=== PATIENT | male | born 1935 | race Caucasian/White ===

== ENCOUNTER 2016-12-30 12:20 | Outpatient (CLI) | payer OTHER ==
--- OUTSIDE RECORDS SUMMARY | 2016-12-30 14:29 | XMS | Clinical Summary ---
:1935 Author Organization [facility] Address [address] [place] [address] Phone Care Team Providers Name Role Phone , Primary Care Provider Unavailable Allergies Not on File Current Medications Not on file Active Problems Not on file Social History Tobacco Use Types Packs/Day Years Used Date Never Assessed Sex Assigned at Date Recorded Not on file Last Filed Vital Signs Not on file Plan of Treatment Not on file Results Not on filefrom Last 3 Months
== END 2016-12-30 12:21 | disposition home or self-care (01) ==
LOC: DTY/OP 12:20
PROVIDERS: ATTEND Family Medicine
DX: N18.3 Chronic kidney disease, stage 3 (moderate) (principal)
CPT/HCPCS: 97802

== ENCOUNTER 2017-09-02 13:08 | Outpatient (CLI) | payer MEDICARE, BC ==
--- NOTE | 2017-09-02 14:59 | PET ---
WHOLE BODY PET CT: Reference made to prior chest imaging dated 04/27/17. CLINICAL HISTORY: Abnormal finding on lung imaging, right lower lung. TECHNIQUE: There is appropriate biodistribution of radiotracer subsequent to IV administration of F18-FDG. Scint igraphic imaging along with nondiagnostic attenuation correction noncontrast CT imaging performed fro m the level of the calvarium to the proximal thighs. FINDINGS: There is a moderate size right pleural effusion with adjacent consolidative density of the right lowe r lobe containing air bronchograms. This area of consolidation is not hypermetabolic. There is a hype rmetabolic focus of the left hilum with a SUV of 3.1, suggestive of adenopathy, and the lymph node is not well discerned morphologically on the basis of noncontrast CT imaging. No hypermetabolic mass or adenopathy of the abdomen or pelvis is seen. There is prominent distention of the gallbladder. Correlate clinically. An exophytic cyst emanates fr om the lateral margin of the right kidney. There is diverticulosis of the sigmoid colon with mild inc reased activity of this region. IMPRESSION: Area of mass-like consolidation of the right lower lung zone adjacent moderate sized pleural effusion is present. This does not demonstrate hypermetabolic activity. There is, however, hypermetabolic act ivity, small in size, at the left hilum, which may relate to hypermetabolic adenopathy. Finding is to o small to definitively characterize and not reliably distinguished on the nondiagnostic attenuation correction portion of the CT component. Recommend follow-up CT thorax in 3 months to confirm resoluti on of the pleural and parenchymal findings. At this time, examination utilizing IV contrast, may also reassess the hilar region. POS: DENY
== END 2017-09-02 13:09 | disposition home or self-care (01) ==
LOC: PET 13:08
PROVIDERS: ATTEND Internal Medicine Sleep Medicine
DX: R91.8 Other nonspecific abnormal finding of lung field (principal); J90 Pleural effusion, not elsewhere classified
CPT/HCPCS: 78815; A9552

== ENCOUNTER 2018-04-19 13:09 | Outpatient (CLI) | payer MEDICARE, BC ==
--- NOTE | 2018-04-19 14:45 | RAD ---
TWO VIEWS CHEST: COMPARISON: 03/22/2018. INDICATION: Dyspnea. FINDINGS: There is complex morphology of pleural fluid projecting at the inferolateral left hemithorax, grossly stable. Right pleural effusion is again seen. Alveolar opacities of the lower lung zones are redem onstrated stable to slightly progressed. There is enlargement of the cardiac silhouette and pulmonar y vasculature. IMPRESSION: 1. Persistent complex pleural fluid collection at the inferior and lateral left hemithorax. 2. Redemonstration of small volume right pleural fluid. 3. Persistent bilateral lower lung zone opacities, stable to slightly progressed which could relate to edema and/or pneumonia. Recommended continued followup. POS: [facility]
== END 2018-04-19 13:10 | disposition home or self-care (01) ==
LOC: RAD 13:09
PROVIDERS: ATTEND Internal Medicine Critical Care Medicine
DX: R06.00 Dyspnea, unspecified (principal); R91.8 Other nonspecific abnormal finding of lung field
CPT/HCPCS: 71046; 80048

== ENCOUNTER 2018-05-07 08:22 | Inpatient (IN) | payer MEDICARE, BC ==
[2018-05-07] MEDS ORDERED: Magnesium 2 GM/50 ML BAG (IN WATER) ONE (08:35)
[2018-05-07 09:14] LABS: Actual Bicarbonate (HCO3a) 20.3 mEq/L (22-28); Analyzer IN Cardio ER; Base Excess (BEa) -4.7 mEq/L (-2.0 to +3.0); CO2 Tension 37.4 mmHg (35.0-45.0); Calcium, Ionized 1.14 mmol/L (1.12-1.30); Carboxyhemoglobin (COHb) 0.1 gm% (0.0-3.0); Hemoglobin (Hb) 10.7 g/dL (14.0-18.0); O2 Tension (PaO2) 118.2 mmHg (> 60.0); Potassium - ABG Lab 4.24 mmol/L (3.70-5.30); pH, Arterial 7.35 (7.35-7.45)
[2018-05-07 09:17] LABS: Puncture Site LR
[2018-05-07] MEDS ORDERED: Albuterol Sulfate 2.5 mg/0.5 ml Neb ONE ×2 (09:19)
[2018-05-07 09:34] LABS: ALT (SGPT) 131 U/L (8-55); AST (SGOT) 25 U/L (5-34); Albumin 3.5 g/dL (3.4-4.8); Alkaline Phosphatase 110 U/L (40-150); Anion Gap 18 mmol/L (10-20); BUN (Urea Nitrogen) 105 mg/dL (8.4-25.7); CK (CPK) 38 U/L (30-200); Calc. Creatinine Clearance 0 mL/min (70-130); Calcium 8.5 mg/dL (7.8-10.44); Carbon Dioxide 20 mmol/L (23-31); Chloride 111 mmol/L (98-107); Estimated GFR-MDRD 27; Globulin 2.6 g/dL (2.4-3.5); Glucose 162 mg/dL (83-110); Lipase 183 U/L (8-78); Potassium 4.6 mmol/L (3.5-5.1); Protein, Total 6.1 g/dL (5.8-8.1); Sodium 144 mmol/L (136-145)
--- NOTE | 2018-05-07 09:40 | RAD ---
RADIOGRAPH CHEST 1 VIEW: Date: 05/07/2018. Time: 7:47 a.m. HISTORY: An 82-year-old male with dyspnea. COMPARISON: 04/19/2018. FINDINGS: Hyperlucency of bilateral upper lobes, with hyperinflation, consistent with COPD. Left subclavian du al-lead pacemaker. The loculated left pleural effusion has decreased in volume. Blunting of the rig ht lateral costophrenic angle consistent with small right pleural effusion, is unchanged. Hazy infil trates at the right lower lung zone, and at the left mid and lower lung zones. The ones in the left mid lung zone appear to be new. No interval change in the rest of the infiltrates. No pneumothorax. IMPRESSION: 1. Interval decrease in size of loculated left pleural effusion. 2. Small right pleural effusion unchanged. 3. Emphysema. 4. Bibasilar infiltrates are unchanged. Uncertain whether they represent chronic pulmonary changes, pulmonary edema, or recurrent pneumonia. 5. New finding of similar such mild infiltrates in the left mid lung zone which could be pulmonary e candido or pneumonia. REYES [] POS: DENY
[2018-05-07 09:46] LABS: Digoxin 0.72 ng/mL (0.8-2.0)
[2018-05-07 09:55] LABS: CKMB 4.2 ng/mL (0-6.6)
[2018-05-07 09:57] LABS: Anisocytosis MODERATE=16-30 cells (100X) (0-5/hpf); Band 4 % (5-11); Eosinophils 1 % (0-10); Hypochromia MODERATE=16-30 cells (100X) (0-5/hpf); Large Platelets SLIGHT; MDiff Complete? YES; Mean Corpuscular HGB CONC 29.6 g/dL (32.0-36.0); Mean Corpuscular Volume 94.6 fL (78.0-98.0); Mean Platelet Volume 10.2 fL (7.4-10.4); Metamyelocyte 2 % (0-0); Monocytes 9 % (0-10); Myelocyte 1 % (0-0); Neutrophil 83 % (42-75); Platelet Count 223 thou/uL (130-400); Platelet Morphology Comment Appears Adequate; Polychromasia SLIGHT = 2-3 cells (100X) (0-2/hpf); RBC Distribution Width 14.2 % (11.5-14.5); Red Blood Cell (RBC) Count 3.56 mill/uL (4.70-6.10); White Blood Cell (WBC) Count 23.9 thou/uL (4.8-10.8)
[2018-05-07] MEDS ORDERED: Sodium Chloride 0.9% 1,000 ML IV SCH (10:00)
[2018-05-07] MEDS ORDERED: Ondansetron ODT 4 MG TAB SL PRN (10:00)
[2018-05-07] MEDS ORDERED: Ondansetron PF 4 MG/2 ML Vial IVP PRN (10:00)
[2018-05-07 12:18] LABS: Bilirubin Negative (Negative); Blood, Urine Small (Negative); Clarity CLOUDY (Clear); Glucose, Urine (Dipstick) 100 mg/dL (Negative); Leukocyte Trace (Negative); Nitrite Negative (Negative); Protein, Urine (Dipstick) 100 mg/dL (Neg-Trace); Specific Gravity, Urine 1.015 (1.002-1.036); Urobilinogen 0.2 mg/dL (0.2-1.0)
[2018-05-07 12:21] LABS: Bacteria/HPF None Seen HPF (None Seen); Hyaline Casts/LPF 4-6 HYALINE CAST LPF (0-3 Hyaline); Pathc Cast-AUWi Flag 1.22 (0-2.49); RBC/HPF 0-3 HPF (0-3); Squamous Epithelial 0-3 HPF (0-3)
[2018-05-07 12:41] LABS: Troponin I 0.115 ng/mL (< 0.028)
[2018-05-07] MEDS ORDERED: Guaifenesin DM 100-10/5 ML UDCUP PO PRN (14:23)
[2018-05-07] MEDS ORDERED: Senokot S 8.6-50 MG TAB PO PRN (14:23)
[2018-05-07] MEDS: Albumin 25% 25 GM/100 ML BOT IVPB SCH ×2 (14:52→20:32)
[2018-05-07] MEDS: Sodium Chloride 0.9% 1,000 ML IV SCH (14:55)
--- NOTE | 2018-05-07 15:37 | HP ---
REASON FOR ADMISSION: Acute respiratory failure with hypoxia. HISTORY OF PRESENTING ILLNESS: The patient had gone see on the . He was put on home oxygen. The SPO2 was in the 70% range. He was told that if his shortness of breath persisted after 2 days, he needs to go to the emergency room. They promptly went to emergency room on the as his shortness of breath did not get better. He was hospitalized at [facility]. He was intubated and also had a bronchoscopy done there. This revealed alveolar hemorrhage with inflammatory component. He was placed on high-dose steroids. Prior to this, the patient was on Eliquis and Multaq and they thought it is due to Multaq. With steroids, he had complete clearing of his chest x-ray per his family. The patient was on Eliquis and Multaq for atrial fibrillation. He had seen Dr. Syed there. He was on the ventilator for nearly 8 days and was successfully extubated. He in fact got discharged yesterday to go to [facility]. This morning, the patient developed low saturations, low blood pressure, and tachycardia. He developed worsening shortness of breath and was transferred here to the emergency room. Was briefly on BIPAP on arrival in ER. Currently, he has no complaints of palpitations, PND, or orthopnea. No complaints of chest pain, cough, or expectoration. He is currently wanting to pass urine, but he is unable to. BladderScan is only 90 mL. The patient is not fully oriented, but responds well to most questions. PAST MEDICAL AND SURGICAL HISTORY: H/o prior thoracentesis with removal of 1 gallon fluid from right pleura 4 yrs back. History of atrial fibrillation, recent hospitalization with respiratory failure, intubated/extubated and discharged yesterday to [facility] from [facility]; benign prostatic hypertrophy, normal ejection fraction per Dr. Looney, who was following the patient there; acute kidney injury due to recent diuresis. Likely diastolic dysfunction. Last stress test was 2 months back, which was a nuclear stress test and was normal as far as the knows. Hypothyroidism, sick sinus syndrome with [employer] pacemaker, tonsillectomy, pilonidal cyst surgery, back surgery. CURRENT MEDICATIONS: The patient is on; 1. Aspirin 81 mg p.o. daily. 2. Calcitriol 0.25 mcg p.o. daily. 3. Digoxin 0.125 mg p.o. daily. 4. Cardizem CD 360 mg p.o. daily. 5. Pepcid 20 mg p.o. daily. 6. Levothyroxine 200 mcg p.o. daily. 7. Flomax 0.4 mg p.o. daily. 8. Terazosin 1 mg p.o. daily. ALLERGIES: TO CLINDAMYCIN, EZETIMIBE, LOSARTAN, PENICILLIN, SIMVASTATIN, AND SULFA. PERSONAL HISTORY: Does not abuse alcohol or drugs. No history of smoking. FAMILY HISTORY: Mother at the age of 75 years. Father at the age of 84 years. He has had history of colon cancer and prostate cancer. CODE STATUS: Full. POWER OF DIRECTOR INTERNATIONAL: His . REVIEW OF SYSTEMS: CONSTITUTIONAL: Negative for weight loss or gain, ability to conduct usual activities. SKIN: Negative for rash, itching. EYES: Negative for double vision, pain. ENT/MOUTH: Negative for nose bleeding, neck stiffness, pain, tenderness. CARDIOVASCULAR: Negative for palpitations, dyspnea on exertion, orthopnea. RESPIRATORY: Negative for shortness of breath, wheezing, cough, hemoptysis, fever or night sweats. GASTROINTESTINAL: Negative for poor appetite, abdominal pain, heartburn, nausea , vomiting, constipation, or diarrhea. GENITOURINARY: Negative for urgency, frequency, dysuria, nocturia. MUSCULOSKELETAL: Negative for pain, swelling. NEUROLOGIC/PSYCHIATRIC: Negative for anxiety, depression. ALLERGY/IMMUNOLOGIC: Negative for skin rash, bleeding tendency. PHYSICAL EXAMINATION: GENERAL: The patient is a 82-year-old male, who is currently not in any acute distress. VITAL SIGNS: Blood pressure 116/66; pulse 110 per minute; respiratory rate is 24 per minute; temperature is 97.9 degrees Fahrenheit; saturating 99%, on BiPAP on arrival here, but currently 100% on 2 L nasal cannula. NECK: Supple. No elevated JVD. HEENT: Eyes; extraocular muscles intact. Pupils reacting to light. Oral cavity, mucous membranes are dry. No exudates or congestion. CARDIOVASCULAR: S1 and S2 heard. Irregular rhythm. RESPIRATORY: Air entry 1+ bilateral. Scattered rhonchi plus no rales or wheezes. ABDOMEN: Soft. Bowel sounds heard. No tenderness, rigidity, or guarding. EXTREMITIES: No peripheral edema or calf tenderness. VASCULAR: Peripheral pulses 1+ bilateral. No ischemic ulcerations or gangrene. CENTRAL NERVOUS SYSTEM: No gross focal deficits noted. The patient is a bit confused, but otherwise mostly oriented and responds well to verbal questions. PSYCHIATRIC: No obvious hallucinations or delusions at present. LABORATORY DATA: EKG done shows atrial fibrillation at 98 beats per minute. There is Q-waves seen in V1, V2, V3, T inversions in V4, V5, V6. White count of 23, H and H 10 and 33, platelet count 223, with 83% neutrophils. Blood gas done shows a pH 7.35, pCO2 37, pO2 118, serum bicarb 20, BUN 105, creatinine 2.3, serum glucose 162. Troponin I indeterminate, peaking up to 0.14. BNP 103. Lipase 183. Albumin 3.5. Digoxin level 0.72. Influenza A and B antigens are negative. Chest x-ray shows signs of emphysema, mild infiltrates in the left midlung zone, could be pulmonary edema or pneumonia. CLINICAL IMPRESSION AND PLAN: The patient will be admitted to [facility] for acute respiratory failure with hypoxia on arrival, currently off BiPAP. He has had extensive workup done at [facility] when he was hospitalized on the and got discharged only yesterday. He has also seen Dr. Vicente on the and was placed on oxygen prior to any of this happening. The patient has had bronchoscopy done and has been ruled out for vasculitis. His ejection fraction was apparently normal per Dr. Looney. We will obtain all the records from [facility]. Prior EKG done on 03 May 2018 shows a QRS duration of 134 milliseconds with a corrected QT interval of 470 milliseconds showing nonspecific intraventricular block. Echo with 2D Doppler that was done on 04/22/2018 shows ejection fraction of 60% to 65%. There is mild concentric LVH. Paradoxical septal motion consistent with RV pacemaker. Left atrial size was normal. He has had a sonogram done on 04/21/2018, which showed normal appearing left kidney. No evidence of hydronephrosis. Right renal cysts were seen. The patient will be placed on albumin infusions and will continue his Lasix. He appears clinically dry at present. Likely, the patient got over-diuresed. Per Dr. Looney, his BUN and creatinine were the same when he left the [facility] yesterday. We will obtain consultation with Dr. Giles. We will obtain [employer] Al[employer]o pacemaker printout with suspected nonsustained episodes of ventricular tachycardia on IMCU. The rate was not more than 130s to 140s. He will be gently hydrated with normal saline at 80 mL per hour as well. The patient will be on Flomax and terazosin. No antibiotics will be given for now. His elevated white count is due to margination. Blood and urine cultures have been obtained in the ER. We will follow up on that. Job ID: [id number] MTDD
[2018-05-07] MEDS: Albuterol Sulfate 1.25 MG/3 ML NEB NEB SCH ×2 (15:44→22:05)
--- NOTE | 2018-05-07 19:38 | CON ---
DATE OF CONSULTATION: HISTORY OF PRESENT ILLNESS: Uriah Degroot is an 82-year-old gentleman who apparently was brought to the ER with shortness of breath. I am told he was recently discharged from the [facility]. He has a right subclavian access stick there. Apparently, he developed some difficulty breathing, and apparently, family decided to bring him to [facility]. I am trying to review some of his information from the [facility]. He carries a diagnosis of CHF, but his ejection fraction was measured at 60% to 65%. He apparently has evidence of renal failure. In the ER, his sats were in the 70s, blood pressure 100/52. PAST MEDICAL HISTORY: Pertinent for CHF, though as noted the echo was normal; chronic renal failure; coronary artery disease; atrial fibrillation; sick sinus; hypothyroidism; reflux; BPH. CURRENT MEDICATIONS: List of medicine brought in from home included, 1. Terazosin 1 mg. 2. Flomax 0.4. 3. Pepcid 20. 4. Aspirin. 5. Cardizem 360. 6. Synthroid 200. ALLERGIES: CLINDAMYCIN, LOSARTAN, PENICILLIN, SULFA. SOCIAL HISTORY: Tobacco, otherwise unable to obtain at this time, but appears he has never smoked. His follow up with Dr. Vicente, actuarial associate and Dr. Looney, his email operations manager. PHYSICAL EXAMINATION: GENERAL: He is awake. Nurses say he ate all his supper. VITAL SIGNS: Blood pressure 130/62, sats 99, respiratory rate 18, pulse 80. CHEST: Decreased breath sounds. No wheezing. CARDIAC: Normal S1 and S2. No gallops. ABDOMEN: No masses. LABORATORY DATA: White count 98637, H and H of 10 and 30, and platelet count is 223, PO2 is 180, pCO2 . He is on BiPAP. BUN and creatinine 100 and 2.3, prerenal. BNP is only 103. IMPRESSION: Prerenal azotemia, chronic renal failure, chronic obstructive pulmonary disease, probably diastolic dysfunction, no evidence of any congestive heart failure at this time, bilateral bronchopneumonia, leukocytosis. I added broad-spectrum antibiotics, neb treatments, steroids to his present regime. We will follow and notify Dr. Vicente, who sees him apparently in the office. 70 minutes time, 50% direct patient care. Job ID: [id number]
[2018-05-07] MEDS ORDERED: Cefepime 1 GM in Sodium Chloride 0.9% 100 ML IVPB SCH (20:00)
[2018-05-07] MEDS: Famotidine 20 MG TAB PO SCH (20:32)
[2018-05-07] MEDS: methylPREDNISolone Sod Succ 40 MG VIAL IVP SCH (20:33)
--- NOTE | 2018-05-07 20:52 | CON ---
DATE OF CONSULTATION: HISTORY OF PRESENT ILLNESS: Mr. Degroot is an 82-year-old white male, who was admitted for shortness of breath. He was found to be hypoxemic. He was admitted for further management. Oxygenation is much improved with 2 L of O2. In addition, he has been empirically treated with albumin and Lasix. The issue with this patient is that his chest x-ray suggested possible pneumonia and/or CHF. Please note this patient was recently admitted at [facility] for acute respiratory failure. He was found to have noncardiogenic pulmonary edema. He underwent a comprehensive workup, which included bronchoscopy. He was also ruled out for any vasculitis. We are now being consulted for his chronic renal failure. His BUN and creatinine are about baseline when compared to his discharge from the [facility]. REVIEW OF SYSTEMS: Positive for shortness of breath. No nausea. No vomiting. No chest pain. No syncopal episode. Positive for cough. No fever or chills. No diarrhea. No constipation. No abdominal pain. No headache. No gross hematuria. No dysuria. No urinary frequency. MEDICATIONS: 1. Albumin 25 g IV q.6. 2. Ecotrin 81 mg daily. 3. Calcitriol 0.25 mcg daily. 4. Cefepime 1 g IV daily. 5. Digoxin 0.125 mg daily. 6. Cardizem CD 360 mg once a day. 7. Lovenox 30 mg daily. 8. Pepcid 20 mg p.o. b.i.d. 9. Synthroid 200 mcg daily. 10. Solu-Medrol 40 mg IV b.i.d. 11. Normal saline 80 mL/hour. PAST MEDICAL HISTORY: 1. 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 2. Recently status post acute respiratory failure. 3. Hypertension. 4. Atrial fibrillation. 5. Secondary hyperparathyroidism. 6. BPH. 7. Hypothyroidism. PAST SURGICAL HISTORY: Status post thoracentesis, status post intubation with subsequent extubation. ALLERGIES: CLINDAMYCIN, EZETIMIBE, LOSARTAN, PENICILLIN, SIMVASTATIN, AND SULFA. TRAUMA: None. IMMUNIZATION: Up-to-date. HOSPITALIZATIONS: Please see past medical history. SOCIAL HISTORY: The patient is , lives in the [facility] area, several children. 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 Education, college graduate. Currently, no smoking or alcohol intake. FAMILY HISTORY: No family history of ESRD. PHYSICAL EXAMINATION: VITAL SIGNS: Blood pressure is 131/62, heart rate 92, respiratory rate 22, pulse ox 100% on 2 L nasal cannula, and temperature 98.1. GENERAL: Awake, supine, comfortable, not in overt distress. SKIN: Adequate turgor. HEENT: Pinkish conjunctivae. Anicteric sclerae. NECK: No neck mass. No carotid bruits. No JVD. CHEST: No deformities. LUNGS: Decreased breath sounds. HEART: Normal sinus rhythm. No murmurs. No gallops. No rubs. ABDOMEN: Globular, soft, and nontender. No masses. EXTREMITIES: No edema. No deformities. LABORATORY DATA: Laboratories of May 07, 2018, urinalysis showed protein of 100, rbc 0 to 3, wbc 11 to 20, no pigmented granular casts. Sodium 144, potassium 4.6, chloride 111, carbon dioxide 20, BUN 105, creatinine 2.3, glucose 162, calcium 8.5. AST 25, ALT 131. Troponin I 0.115. BNP is 103. Chest x-ray of May 07, 2018, shows interval increase in the loculated left pleural effusion, small right pleural effusion finding of emphysema, bibasilar infiltrates which may represent edema or recurrent pneumonia. ASSESSMENT AND PLAN: 1. Shortness of breath/hypoxemia. Empiric treatment of a presumed pneumonia. The patient most likely has no overt congestive heart failure in a background of low BNP and x-ray that is more suggestive of chronic lung disease. 2. Acute kidney injury/chronic renal failure - currently, we are trying to gently diurese this patient due to the ? Of pulmonary edema. However, review of the history suggests this patient may most likely be more volume depleted. He has been started on salt-poor albumin 25 g IV q.6. He was initially empirically treated with some Lasix, which was given as one time dose. Please note, the patient was discharged from the [facility] on Lasix. There is no indication for any dialytic intervention. Agree with optimizing his hemodynamics. Agree with albumin infusion and gentle volume repletion with crystalloids. Case discussed with Dr. Giles. Job ID: [id number]
[2018-05-08] MEDS: Albumin 25% 25 GM/100 ML BOT IVPB SCH ×4 (03:23→20:52)
[2018-05-08] MEDS: Sodium Chloride 0.9% 1,000 ML IV SCH ×2 (03:23→15:20)
[2018-05-08] MEDS: Levothyroxine Sodium 100 MCG TAB PO SCH (05:31)
[2018-05-08] MEDS ORDERED: Furosemide 40 MG/4 ML VIAL SLOW IVP SCH (06:00)
[2018-05-08] MEDS ORDERED: Vancomycin HCl 1 GM in Premix Bag 1 BAG IVPB SCH (06:30)
[2018-05-08 06:48] LABS: Anion Gap 16 mmol/L (10-20); BUN (Urea Nitrogen) 89 mg/dL (8.4-25.7); BUN/Creatinine Ratio 46.35; Calc. Creatinine Clearance 36 mL/min (70-130); Calcium 8.6 mg/dL (7.8-10.44); Carbon Dioxide 21 mmol/L (23-31); Chloride 112 mmol/L (98-107); Estimated GFR-MDRD 34; Glucose 145 mg/dL (83-110); Phosphorus 5.4 mg/dL (2.3-4.7); Potassium 5.1 mmol/L (3.5-5.1); Sodium 144 mmol/L (136-145)
[2018-05-08 06:58] LABS: Band 9 % (5-11); MDiff Complete? YES; Mean Corpuscular HGB CONC 30.6 g/dL (32.0-36.0); Mean Corpuscular Hemoglobin 28.5 pg (27.0-31.0); Mean Corpuscular Volume 93.2 fL (78.0-98.0); Mean Platelet Volume 10.5 fL (7.4-10.4); Metamyelocyte 1 % (0-0); Monocytes 1 % (0-10); Neutrophil 89 % (42-75); Platelet Count 175 thou/uL (130-400); Platelet Morphology Comment Appears Adequate; RBC Distribution Width 14.1 % (11.5-14.5); Red Blood Cell (RBC) Count 2.82 mill/uL (4.70-6.10); White Blood Cell (WBC) Count 19.6 thou/uL (4.8-10.8)
[2018-05-08] MEDS ORDERED: Calcitriol 0.25 MCG CAP PO SCH (09:00)
[2018-05-08] MEDS: Vancomycin HCl 1.25 GM in Sodium Chloride 0.9% 250 ML 250 ML IVPB SCH (09:14)
[2018-05-08] MEDS ORDERED: Clopidogrel Bisulfate 75 MG TAB ONE (09:33)
[2018-05-08] MEDS: Terazosin HCl 1 MG CAP PO SCH (10:19)
[2018-05-08] MEDS: Famotidine 20 MG TAB PO SCH ×2 (10:19→20:53)
[2018-05-08] MEDS: Digoxin 0.125 MG TAB PO SCH (10:19)
[2018-05-08] MEDS: Tamsulosin HCl 0.4 MG CAP PO SCH (10:19)
[2018-05-08] MEDS: Aspirin 81 mg Enteric Coated Tablet PO SCH (10:19)
[2018-05-08] MEDS: Calcitriol 0.25 MCG CAP PO SCH (10:20)
[2018-05-08] MEDS: Enoxaparin Sodium 30 MG/0.3 ML SYRINGE SC SCH (10:21)
[2018-05-08] MEDS: methylPREDNISolone Sod Succ 40 MG VIAL IVP SCH ×2 (10:22→20:52)
--- NOTE | 2018-05-08 11:18 | PRG ---
DATE OF SERVICE: 05/08/2018 SERVICE: Renal Medicine. SUBJECTIVE: Mr. Degroot is an 82-year-old white male, who was admitted for shortness of breath. Review of his pulmonary status suggests he may have underlying pneumonia. IV antibiotics have been continued. He was also found to be still in his acute kidney injury/chronic renal failure. Empiric albumin infusion was given with improvement of the renal function. This morning, he is feeling better. He voices no new complaints. He states his shortness of breath is improved. OBJECTIVE: VITAL SIGNS: Blood pressure 157/72, heart rate 82, respiratory rate 21, and pulse oximetry 100%. GENERAL: Awake, alert, and comfortable. SKIN: Adequate turgor. HEENT: Slightly pale conjunctivae. Anicteric sclerae. NECK: No neck mass. No carotid bruits. No JVD. CHEST: No deformities. LUNGS: Clear. Decreased breath sounds. HEART: Normal sinus rhythm. No murmur. No gallops. No rubs. ABDOMEN: Globular, soft, and nontender. No masses. EXTREMITIES: No edema. No deformities. MEDICATIONS: Medications of May 08, 2018, was reviewed. LABORATORY DATA: Laboratories of May 08, 2018; white count 19.6 and hemoglobin 8. Sodium 144, potassium 5.1, chloride 112, carbon dioxide 21, BUN 89, creatinine 1.92, glucose 145, phosphorus 5.4, and albumin 4.0. ASSESSMENT AND PLAN: 1. Acute kidney injury/chronic renal failure, superimposed prerenal azotemia, slowly improving renal function with IV hydration with crystalloids and colloids. Continue current management. Continue to hold off any diuretics. 2. Shortness of breath - multifactorial etiology. Underlying pneumonia is a possibility. The patient continues to receive his IV antibiotics. 3. He is also on steroid supplementation. 4. Anemia. Continue to observe. Plan is to recheck basic metabolic panel and CBC in the a.m. Job ID: [id number]
--- NOTE | 2018-05-08 11:56 | PRG ---
DATE OF SERVICE: 05/08/2018 SUBJECTIVE: This morning he said, he is doing better, less short of breath. OBJECTIVE: VITAL SIGNS: His sats are 97% on 2 L, pulse 80, blood pressure 146/74, respirations 18. CHEST: Decreased breath sounds. No wheezing. Minimal crackles. CARDIAC: Normal S1 and S2. No gallops. ABDOMEN: Soft. LABORATORY DATA: White count 19,000 with a slight left shift. H and H 26, platelet count is normal. Creatinine is 1.2, BUN 89. Urine is normal. Blood culture, coagulase negative, Staph as a contamination. Abnormal x-ray, respiratory failure, bilateral pneumonia, azotemia, normal EF. PLAN: Continue antibiotics, steroids. I would deescalate antibiotics. All cultures are negative. Pulmonary will follow. Job ID: [id number]
[2018-05-08] MEDS: Albuterol Sulfate 1.25 MG/3 ML NEB NEB SCH ×3 (12:30→22:33)
--- NOTE | 2018-05-08 15:27 | PDOC.PN ---
- Subjective Encounter Start Date: 05/08/18 Encounter Start Time: 13:00 Subjective: no sob or palp -: feels better, not fully oriented but follows verbal stimuli - Objective Resuscitation Status - Order Detail: 05/07/18 14:14 Resuscitation Status Routine Resuscitation Status: FULL: Full Resuscitation MAR Reviewed: Yes Vital Signs & Weight: Vital Signs (12 hours) Temp Pulse Pulse Pulse Resp BP BP 05/08/18 12:29 94 20 05/08/18 12:00 98.3 F 05/08/18 10:19 82 05/08/18 10:09 92 92 161/67 H 157/77 H 05/08/18 08:00 05/08/18 07:15 97.6 F 05/08/18 04:08 98.0 F Pulse Ox Pulse Ox Pulse Ox 05/08/18 12:29 97 05/08/18 12:00 05/08/18 10:19 05/08/18 10:09 100 99 05/08/18 08:00 97 05/08/18 07:15 05/08/18 04:08 Weight Weight 184 lb 3 oz Most Recent Monitor Data Heart Rate from ECG 97 NIBP 161/73 NIBP BP-Mean 102 Respiration from ECG 28 SpO2 94 I&O: 05/07/18 05/08/18 05/09/18 05:59 06:59 06:59 Intake Total Output Total Balance Result Diagrams: 05/08/18 05:27 05/08/18 05:27 Phys Exam - Physical Examination HEENT: PERRLA, moist MMs Neck: no JVD, supple Respiratory: no wheezing, no rales rhonchi+ Cardiovascular: no significant murmur, irregular Gastrointestinal: soft, non-tender, positive bowel sounds Musculoskeletal: pulses present, edema present Neurological: non-focal, moves all 4 limbs Dx/Plan (1) CHF (congestive heart failure), NYHA class III Code(s): I50.9 - HEART FAILURE, UNSPECIFIED Status: Chronic Qualifiers: Congestive heart failure type: diastolic Congestive heart failure chronicity: chronic Qualified Code(s): I50.32 - Chronic diastolic (congestive ) heart failure (2) PNA (pneumonia) Code(s): J18.9 - PNEUMONIA, UNSPECIFIED ORGANISM Status: Acute Qualifiers: Pneumonia type: due to unspecified organism Laterality: bilateral (3) Acute respiratory failure with hypoxia Code(s): J96.01 - ACUTE RESPIRATORY FAILURE WITH HYPOXIA Status: Resolved (4) Afib Code(s): I48.91 - UNSPECIFIED ATRIAL FIBRILLATION Status: Chronic Qualifiers: Atrial fibrillation type: paroxysmal Qualified Code(s): I48.0 - Paroxysmal atrial fibrillation (5) ARACELI (acute kidney injury) Code(s): N17.9 - ACUTE KIDNEY FAILURE, UNSPECIFIED Status: Acute (6) Physical deconditioning Code(s): R53.81 - OTHER MALAISE Status: Acute (7) HTN (hypertension) Code(s): I10 - ESSENTIAL (PRIMARY) HYPERTENSION Status: Chronic Qualifiers: Hypertension type: essential hypertension Qualified Code(s): I10 - Essential (primary) hypertension (8) Pacemaker Code(s): Z95.0 - PRESENCE OF CARDIAC PACEMAKER Status: Chronic Comment: due to sss (9) Hypothyroidism Code(s): E03.9 - HYPOTHYROIDISM, UNSPECIFIED Status: Chronic Qualifiers: Hypothyroidism type: unspecified Qualified Code(s): E03.9 - Hypothyroidism , unspecified - Plan is on iv fluids, alb infusions -: cefepime, vanc, nebs -: on asp, digoxin, cardizem cd, flomax, hytrin -: PT to mobilize as tolerated -: dc plan will be back to [place] when stable * . Review of Systems - Medications/Allergies Allergies/Adverse Reactions: Allergies Allergy/AdvReac Type Severity Reaction Status Date / Time clindamycin Allergy Verified 05/07/18 13:37 ezetimibe Allergy Verified 05/07/18 13:37 [From Vytorin 10-10] losartan Allergy Verified 05/07/18 13:37 Penicillins Allergy Verified 05/07/18 13:37 simvastatin Allergy Verified 05/07/18 13:37 [From Vytorin 10-10] Sulfa (Sulfonamide Allergy Verified 05/07/18 13:37 Antibiotics) Medications: Current Medications Acetaminophen (Tylenol) 650 mg PO Q4H PRN PRN Reason: Headache/Fever/Mild Pain (1-3) Albumin Human (Albumin 25%) 25 gm IVPB Q6H ARMANI Stop: 05/08/18 20:31 Last Admin: 05/08/18 15:12 Dose: 25 gm Albuterol Sulfate (Albuterol Sulfate) 1.25 mg NEB [id number] ARMANI Last Admin: 05/08/18 12:30 Dose: Not Given Albuterol/Ipratropium (Duoneb) 3 ml NEB [id number] [facility] Last Admin: 05/08/18 12:29 Dose: 3 ml Aspirin (Ecotrin) 81 mg PO DAILY [facility] Last Admin: 05/08/18 10:19 Dose: 81 mg Calcitriol (Rocaltrol) 0.25 mcg PO DAILY [facility] Last Admin: 05/08/18 10:20 Dose: 0.25 mcg Digoxin (Lanoxin) 0.125 mg PO DAILY [facility] Last Admin: 05/08/18 10:19 Dose: 0.125 mg Diltiazem HCl (Cardizem Cd) 360 mg PO DAILY [facility] Last Admin: 05/08/18 10:18 Dose: 360 mg Enoxaparin Sodium (Lovenox) 30 mg SC 0900 [facility] Last Admin: 05/08/18 10:21 Dose: 30 mg Famotidine (Pepcid) 20 mg PO BID [facility] Last Admin: 05/08/18 10:19 Dose: 20 mg Guaifenesin/Dextromethorphan (Robitussin Dm) 15 ml PO Q4H PRN PRN Reason: Cough Sodium Chloride (Normal Saline 0.9%) 1,000 mls @ 80 mls/hr IV .[id number] [facility] Last Admin: 05/08/18 03:23 Dose: 1,000 mls Vancomycin HCl 1.25 gm/ Sodium (Chloride) 250 mls @ 166.667 mls/hr IVPB 0800 [facility] Last Admin: 05/08/18 09:14 Dose: 250 mls Cefepime HCl 1 gm/ Sodium (Chloride) 100 mls @ 200 mls/hr IVPB 2000 [facility] Levothyroxine Sodium (Synthroid) 200 mcg PO 0600 [facility] Last Admin: 05/08/18 05:31 Dose: 200 mcg Methylprednisolone Sodium Succinate (Solu-Medrol) 40 mg IVP BID [facility] Last Admin: 05/08/18 10:22 Dose: 40 mg Miscellaneous Medication (Pharmacy To Dose) 1 each IVPB DAILYPRN PRN PRN Reason: VANC/ABX Senna/Docusate Sodium (Senokot S) 2 tab PO BIDPRN PRN PRN Reason: Constipation Tamsulosin HCl (Flomax) 0.4 mg PO DAILY [facility] Last Admin: 05/08/18 10:19 Dose: 0.4 mg Terazosin HCl (Hytrin) 1 mg PO DAILY [facility] Last Admin: 05/08/18 10:19 Dose: 1 mg
[2018-05-08] MEDS: Cefepime 1 GM in Sodium Chloride 0.9% 100 ML IVPB SCH (20:53)
[2018-05-09] MEDS: Levothyroxine Sodium 100 MCG TAB PO SCH (04:54)
[2018-05-09] MEDS: Sodium Chloride 0.9% 1,000 ML IV SCH ×2 (04:55→17:27)
[2018-05-09 06:52] LABS: #Lymphocytes 0.1 thou/uL (1.20-3.40); #Monocytes 0.4 thou/uL (0.11-0.59); #Neutrophils 12.5 thou/uL (1.40-6.50); %Eosinophils 0.3 % (0.0-10.0); %Lymphocytes 0.9 % (21.0-51.0); %Neutrophils 95.8 % (42.0-75.0); Mean Corpuscular HGB CONC 29.9 g/dL (32.0-36.0); Mean Corpuscular Hemoglobin 28.3 pg (27.0-31.0); Mean Corpuscular Volume 94.6 fL (78.0-98.0); Mean Platelet Volume 9.5 fL (7.4-10.4); Platelet Count 135 thou/uL (130-400); RBC Distribution Width 14.1 % (11.5-14.5); Red Blood Cell (RBC) Count 2.47 mill/uL (4.70-6.10)
[2018-05-09 07:00] LABS: Anion Gap 14 mmol/L (10-20); BUN (Urea Nitrogen) 71 mg/dL (8.4-25.7); Calc. Creatinine Clearance 38 mL/min (70-130); Calcium 8.6 mg/dL (7.8-10.44); Carbon Dioxide 19 mmol/L (23-31); Chloride 117 mmol/L (98-107); Estimated GFR-MDRD 36; Glucose 150 mg/dL (83-110); Sodium 145 mmol/L (136-145)
[2018-05-09 07:58] LABS: Vancomycin, Trough 11.6 ug/mL
[2018-05-09] MEDS: Vancomycin HCl 1.25 GM in Sodium Chloride 0.9% 250 ML 250 ML IVPB SCH (08:29)
--- NOTE | 2018-05-09 08:45 | RAD ---
SINGLE VIEW OF THE CHEST: COMPARISON: 05/07/2018. HISTORY: CHF. FINDINGS: A single view of the chest shows a normal-size cardiomediastinal silhouette. The pacemaker is unchan ged in position. Diffuse mixed alveolar/interstitial opacities are seen. Degenerative changes are s een in the spine. IMPRESSION: Multifocal infiltrates. POS: STEPHEN
[2018-05-09] MEDS: Tamsulosin HCl 0.4 MG CAP PO SCH (09:16)
[2018-05-09] MEDS: Aspirin 81 mg Enteric Coated Tablet PO SCH (09:16)
[2018-05-09] MEDS: Calcitriol 0.25 MCG CAP PO SCH (09:17)
[2018-05-09] MEDS: Famotidine 20 MG TAB PO SCH ×2 (09:17→20:53)
[2018-05-09] MEDS: Digoxin 0.125 MG TAB PO SCH (09:17)
[2018-05-09] MEDS: Terazosin HCl 1 MG CAP PO SCH (09:18)
[2018-05-09] MEDS: methylPREDNISolone Sod Succ 40 MG VIAL IVP SCH (09:18)
[2018-05-09] MEDS: Enoxaparin Sodium 30 MG/0.3 ML SYRINGE SC SCH (09:20)
--- NOTE | 2018-05-09 09:33 | PRG ---
DATE OF SERVICE: 05/09/2018 SUBJECTIVE: Mr. Degroot is an 82-year-old white male, who was admitted for shortness of breath. He was found to be still with persistent pneumonia, currently on IV antibiotics. We were consulted for his acute kidney injury on top of his chronic renal failure. He has received gentle volume repletion with colloids and crystalloids. No other complaints today. OBJECTIVE: VITAL SIGNS: Blood pressure 145/63, heart rate 81, respiratory rate is 12, and pulse ox 96%. GENERAL: Awake, supine, comfortable, not in distress. SKIN: Adequate turgor. HEENT: Slightly pale conjunctivae. Anicteric sclerae. NECK: No neck mass. No carotid bruits. No JVD. CHEST: No deformities. LUNGS: Decreased breath sounds. HEART: Normal sinus rhythm. No murmurs. No gallops. No rubs. ABDOMEN: Globular, soft, and nontender. No masses. EXTREMITIES: No edema. MEDICATIONS: Medications of May 09, 2018, was reviewed. LABORATORY DATA: Laboratories of May 09, 2018, white count 13 and hemoglobin 7. Sodium 145, potassium 5, chloride 107, carbon dioxide 19, BUN 71, creatinine 1.81, glucose 150, and calcium 8.6. ASSESSMENT AND PLAN: 1. Anemia - continue to observe. Consider transfusing once hemoglobin is less than 7. 2. Acute kidney injury on top of his chronic renal failure, much improved renal function with gentle volume repletion. Since the patient has increased p.o. intake, we will change IV fluid to a KVO. 3. Pneumonia on empiric IV antibiotics. Overall, continue supportive care. Job ID: [id number]
--- NOTE | 2018-05-09 10:48 | PRG ---
DATE OF SERVICE: 05/09/2018 SUBJECTIVE: This morning, he denies any difficulty breathing. His x-ray clearly shows worsening bilateral pulmonary infiltrates. LABORATORY DATA: His creatinine is 1.8, BUN is 71, much improved. His white count [id number]. OBJECTIVE: VITAL SIGNS: He is complaining some vague abdominal discomfort, but his blood pressure 145/63, sats 90% on 2 L, respirations 18. His I's and O's have been 390 in, 400 out, negative balance of 350. CHEST: Bilateral crackles. CARDIAC: Normal S1 and S2. No gallops. ABDOMEN: No masses. IMPRESSION: Pneumonia; congestive heart failure, probably diastolic dysfunction; renal failure. PLAN: Restart Lasix 40 once a day. Discontinue vancomycin. Continue Maxipime and steroids. Repeat echocardiogram. We will follow. Job ID: [id number]
[2018-05-09] MEDS ORDERED: Ondansetron PF 4 MG/2 ML Vial IVP PRN (12:03)
[2018-05-09] MEDS ORDERED: Ondansetron ODT 4 MG TAB PO PRN (12:04)
--- NOTE | 2018-05-09 19:52 | PDOC.PN ---
- Subjective Encounter Start Date: 05/09/18 Encounter Start Time: 19:51 Subjective: BREATHING BETTER, feeling less SOB - Objective Resuscitation Status - Order Detail: 05/07/18 14:14 Resuscitation Status Routine Resuscitation Status: FULL: Full Resuscitation Vital Signs & Weight: Vital Signs (12 hours) Temp Pulse Resp Pulse Ox 05/09/18 19:50 99.2 F 05/09/18 18:39 95 05/09/18 18:38 79 20 95 05/09/18 16:00 99.0 F 05/09/18 13:54 70 26 H 97 05/09/18 11:28 99.5 F 05/09/18 09:17 86 05/09/18 08:00 98 Weight Weight 185 lb 1 oz Most Recent Monitor Data Heart Rate from ECG 82 NIBP 134/57 NIBP BP-Mean 82 Respiration from ECG 23 SpO2 90 I&O: 05/08/18 05/09/18 05/10/18 06:59 06:59 06:59 Intake Total 3900 970 Output Total 400 500 Balance 3500 470 Result Diagrams: 05/09/18 06:27 05/09/18 06:27 Phys Exam - Physical Examination HEENT: PERRLA, moist MMs, sclera anicteric, TM's clear, oral pharynx no lesions , 2+ tonsils Neck: no nodes, no JVD, supple, full ROM Respiratory: no wheezing, no rales, no rhonchi Cardiovascular: RRR, no significant murmur, no rub Gastrointestinal: soft, non-tender, no distention, positive bowel sounds Musculoskeletal: edema present Neurological: non-focal, normal sensation, moves all 4 limbs Psychiatric: normal affect, A&O x 3 Dx/Plan (1) PNA (pneumonia) Code(s): J18.9 - PNEUMONIA, UNSPECIFIED ORGANISM Status: Acute Qualifiers: Pneumonia type: due to unspecified organism Laterality: bilateral Comment: CONTINUE CEFEPIME, STOP Vanc (2) ARACELI (acute kidney injury) Code(s): N17.9 - ACUTE KIDNEY FAILURE, UNSPECIFIED Status: Acute Comment: improving creatinine with gentle hydration (3) Physical deconditioning Code(s): R53.81 - OTHER MALAISE Status: Acute (4) Afib Code(s): I48.91 - UNSPECIFIED ATRIAL FIBRILLATION Status: Chronic Qualifiers: Atrial fibrillation type: paroxysmal Qualified Code(s): I48.0 - Paroxysmal atrial fibrillation Comment: paroxysmal (5) CHF (congestive heart failure), NYHA class III Code(s): I50.9 - HEART FAILURE, UNSPECIFIED Status: Chronic Qualifiers: Congestive heart failure type: diastolic Congestive heart failure chronicity: chronic Qualified Code(s): I50.32 - Chronic diastolic (congestive ) heart failure Comment: continue digoxin (6) HTN (hypertension) Code(s): I10 - ESSENTIAL (PRIMARY) HYPERTENSION Status: Chronic Qualifiers: Hypertension type: essential hypertension Qualified Code(s): I10 - Essential (primary) hypertension (7) Hypothyroidism Code(s): E03.9 - HYPOTHYROIDISM, UNSPECIFIED Status: Chronic Qualifiers: Hypothyroidism type: unspecified Qualified Code(s): E03.9 - Hypothyroidism , unspecified (8) Pacemaker Code(s): Z95.0 - PRESENCE OF CARDIAC PACEMAKER Status: Chronic Comment: due to sss - Plan cont current plan of care, plan discussed w/ family, continue antibiotics, PT/OT , respiratory therapy, DVT proph w/SCDs * .
[2018-05-09] MEDS: Cefepime 1 GM in Sodium Chloride 0.9% 100 ML IVPB SCH (20:53)
[2018-05-09] MEDS ORDERED: Vancomycin HCl 750 MG in Sodium Chloride 0.9% 250 ML 250 ML IVPB SCH (21:00)
[2018-05-09] MEDS: methylPREDNISolone Sod Succ/PF 125 MG/2 ML VIAL IVP SCH (21:32)
[2018-05-10 06:09] LABS: Anion Gap 16 mmol/L (10-20); BUN (Urea Nitrogen) 78 mg/dL (8.4-25.7); Calc. Creatinine Clearance 26 mL/min (70-130); Calcium 8.7 mg/dL (7.8-10.44); Carbon Dioxide 16 mmol/L (23-31); Chloride 117 mmol/L (98-107); Estimated GFR-MDRD 23; Glucose 186 mg/dL (83-110); Potassium 5.2 mmol/L (3.5-5.1); Sodium 144 mmol/L (136-145)
[2018-05-10 06:25] LABS: Band 12 % (5-11); Hemoglobin 7.6 g/dL (14.0-18.0); Lymphocytes 2 % (21-51); MDiff Complete? YES; Mean Corpuscular HGB CONC 30.6 g/dL (32.0-36.0); Mean Corpuscular Hemoglobin 28.5 pg (27.0-31.0); Mean Platelet Volume 9.2 fL (7.4-10.4); Monocytes 1 % (0-10); Neutrophil 85 % (42-75); Platelet Count 144 thou/uL (130-400); Platelet Morphology Comment Appears Adequate; RBC Distribution Width 14.4 % (11.5-14.5); Red Blood Cell (RBC) Count 2.67 mill/uL (4.70-6.10)
[2018-05-10] MEDS: Sodium Chloride 0.9% 1,000 ML IV SCH (06:30)
[2018-05-10] MEDS: Levothyroxine Sodium 100 MCG TAB PO SCH (06:35)
--- NOTE | 2018-05-10 09:49 | PRG ---
DATE OF SERVICE: 05/10/2018 SERVICE: Renal Medicine SUBJECTIVE: Mr. Degroot is an 82-year-old white male, who was admitted for shortness of breath. He was found to have a persistent pneumonia. Currently, on antibiotics. Shortness of breath is stable. No worsening. Denies any chest pain. OBJECTIVE: VITAL SIGNS: Blood pressure is 148/67, heart rate currently 112, respiratory rate 12, and pulse ox 94%. GENERAL: Awake, sitting comfortable, not in overt distress. SKIN: Adequate turgor. HEENT: Slightly pale conjunctivae. Anicteric sclerae. NECK: No neck mass. No carotid bruits. No JVD. CHEST: No deformities. LUNGS: Decreased breath sounds. HEART: Normal sinus rhythm. No murmurs. No gallops. No rubs. ABDOMEN: Globular, soft, and nontender. No masses. EXTREMITIES: No edema. No deformities. MEDICATIONS: Medications of May 10, 2018, reviewed. LABORATORY DATA: Laboratories of May 10, 2018; white count 20, hemoglobin 7.6. Sodium 144, potassium 5.2, chloride 117, carbon dioxide 16, BUN 78, creatinine 2.64, glucose 186, and calcium 8.7. ASSESSMENT AND PLAN: 1. Acute kidney injury/chronic renal failure - higher creatinine today at 2.64. Yesterday, this was 1.81. This is most likely a hemodynamically-mediated renal dysfunction. The patient has gone back to the atrial fibrillation/flutter with a heart rate of 116 to 122. Currently, the patient is on Cardizem and digoxin. Please note that his last marketing intern back at the [facility] started him on amiodarone to control the cardiac rhythm. However, this was discontinued due to the fact that there was an issue whether this may have caused some degree of pulmonary toxicity. We will reconsult Cardiology. No indication for any dialytic intervention. We will continue to hold off diuretics. 2. Shortness of breath, multifactorial etiology, being treated for pneumonia. We will recheck basic metabolic and CBC in a.m. Job ID: [id number]
[2018-05-10] MEDS: Famotidine 20 MG TAB PO SCH ×2 (10:17→20:18)
[2018-05-10] MEDS: Calcitriol 0.25 MCG CAP PO SCH (10:18)
[2018-05-10] MEDS: Tamsulosin HCl 0.4 MG CAP PO SCH (10:18)
[2018-05-10] MEDS: Aspirin 81 mg Enteric Coated Tablet PO SCH (10:18)
[2018-05-10] MEDS: Digoxin 0.125 MG TAB PO SCH (10:19)
[2018-05-10] MEDS: Terazosin HCl 1 MG CAP PO SCH (10:20)
[2018-05-10] MEDS: Furosemide 40 MG/4 ML VIAL SLOW IVP SCH (10:21)
[2018-05-10] MEDS: methylPREDNISolone Sod Succ/PF 125 MG/2 ML VIAL IVP SCH ×2 (10:21→20:18)
[2018-05-10] MEDS: Enoxaparin Sodium 30 MG/0.3 ML SYRINGE SC SCH (10:22)
--- NOTE | 2018-05-10 10:23 | PRG ---
DATE OF SERVICE: 05/10/2018 SUBJECTIVE: This morning, he is awake, alert, and responsive. He is less short of breath. OBJECTIVE: VITAL SIGNS: His sats are 96% on 2 L, temperature is 98, pulse 72, and blood pressure 146/70. CHEST: Bilateral crackles. CARDIAC: Normal S1 and S2. No gallops. ABDOMEN: No masses. LABORATORY DATA: Creatinine is 2.6, BUN is 78. His white count 20,000. X-ray, bilateral pulmonary infiltrates. IMPRESSION: 1. Renal failure. 2. Bilateral pulmonary infiltrates. Etiology unclear, possibly pneumonia, vasculitis and/or congestive heart failure. PLAN: Continue antibiotics, neb treatments. Await culture report. We will follow. Job ID: [id number]
--- NOTE | 2018-05-10 15:28 | PDOC.CTH ---
Cardiology Progress Note - Subjective Asked by nurse to review tele and pacer interrogation regarding tachycardia. - Objective Vital Signs Temp Pulse Pulse Pulse Resp BP BP 05/10/18 15:22 98.7 F 05/10/18 13:23 83 24 H 05/10/18 11:08 98.5 F 05/10/18 10:19 82 05/10/18 09:18 123 H 130/76 05/10/18 09:02 93 82 130/76 150/65 H 05/10/18 07:49 05/10/18 07:48 82 22 H 05/10/18 07:47 05/10/18 07:16 98.6 F 05/10/18 03:57 98.9 F Pulse Ox Pulse Ox Pulse Ox 05/10/18 15:22 05/10/18 13:23 95 05/10/18 11:08 05/10/18 10:19 05/10/18 09:18 95 05/10/18 09:02 95 95 05/10/18 07:49 96 05/10/18 07:48 96 05/10/18 07:47 98 05/10/18 07:16 05/10/18 03:57 Weight 181 lb 14.4 oz 05/09/18 05/10/18 05/11/18 06:59 06:59 06:59 Intake Total 3900 1280 Output Total 400 500 150 Balance 3500 780 -150 - Labs Result Diagrams: 05/10/18 05:21 05/10/18 05:21 Troponin/CKMB CK-MB (CK-2) 4.2 ng/mL (0-6.6) 05/07/18 08:49 Troponin I 0.115 ng/mL (< 0.028) H 05/07/18 12:03 - Assessment/Plan 1. AFib 2. Atrial Flutter 3. s/p pacer Reviewed tele and pacer interrogation as well as recent notes from [facility]. Patient with history of AF/Fl. Previously on cardizem and Eliquis. Diagnosed with pulmonary alveolar hemorrage in the last month so Eliquis stopped. Digoxin was added. Admitted here for bilateral PNA. Now with <5 episodes of AFlutter with RVR per nurse. Short. Patient asymptomatic at this time. Recommend observation only. Can consult EP for further recommendations if flutter sustains.
--- NOTE | 2018-05-10 15:55 | PDOC.PN ---
- Subjective Encounter Start Date: 05/10/18 Encounter Start Time: 15:54 Subjective: Congested, difficult to breath, doing OK otherwise - Objective Resuscitation Status - Order Detail: 05/07/18 14:14 Resuscitation Status Routine Resuscitation Status: FULL: Full Resuscitation Vital Signs & Weight: Vital Signs (12 hours) Temp Pulse Pulse Pulse Resp BP BP 05/10/18 15:22 98.7 F 05/10/18 13:23 83 24 H 05/10/18 11:08 98.5 F 05/10/18 10:19 82 05/10/18 09:18 123 H 130/76 05/10/18 09:02 93 82 130/76 150/65 H 05/10/18 07:49 05/10/18 07:48 82 22 H 05/10/18 07:47 05/10/18 07:16 98.6 F 05/10/18 03:57 98.9 F Pulse Ox Pulse Ox Pulse Ox 05/10/18 15:22 05/10/18 13:23 95 05/10/18 11:08 05/10/18 10:19 05/10/18 09:18 95 05/10/18 09:02 95 95 05/10/18 07:49 96 05/10/18 07:48 96 05/10/18 07:47 98 05/10/18 07:16 05/10/18 03:57 Weight Weight 181 lb 14.4 oz Most Recent Monitor Data Heart Rate from ECG 83 NIBP 133/74 NIBP BP-Mean 93 Respiration from ECG 30 SpO2 95 I&O: 05/09/18 05/10/18 05/11/18 06:59 06:59 06:59 Intake Total 3900 1280 Output Total 400 500 150 Balance 3500 780 -150 Result Diagrams: 05/10/18 05:21 05/10/18 05:21 Phys Exam - Physical Examination HEENT: PERRLA, moist MMs, sclera anicteric, TM's clear, oral pharynx no lesions , 2+ tonsils Neck: no nodes, no JVD, supple, full ROM Respiratory: no rales, no rhonchi, clear to auscultation bilateral Cardiovascular: RRR, no significant murmur, no rub Gastrointestinal: soft, non-tender, no distention, positive bowel sounds Musculoskeletal: edema present Neurological: non-focal, normal sensation, moves all 4 limbs Psychiatric: normal affect, A&O x 3 Dx/Plan (1) PNA (pneumonia) Code(s): J18.9 - PNEUMONIA, UNSPECIFIED ORGANISM Status: Acute Qualifiers: Pneumonia type: due to unspecified organism Laterality: bilateral Comment: CONTINUE CEFEPIME, STOP Vanc. (2) ARACELI (acute kidney injury) Code(s): N17.9 - ACUTE KIDNEY FAILURE, UNSPECIFIED Status: Acute Comment: improving creatinine with gentle hydration (3) Physical deconditioning Code(s): R53.81 - OTHER MALAISE Status: Acute (4) Afib Code(s): I48.91 - UNSPECIFIED ATRIAL FIBRILLATION Status: Chronic Qualifiers: Atrial fibrillation type: paroxysmal Qualified Code(s): I48.0 - Paroxysmal atrial fibrillation Comment: paroxysmal, stopped Eliquis recently due to bleeding. On Digoxin and Diltiazem. (5) CHF (congestive heart failure), NYHA class III Code(s): I50.9 - HEART FAILURE, UNSPECIFIED Status: Chronic Qualifiers: Congestive heart failure type: diastolic Congestive heart failure chronicity: chronic Qualified Code(s): I50.32 - Chronic diastolic (congestive ) heart failure Comment: continue digoxin, hold Lasix for ARACELI, ECHO WITH PRESERVED EF (6) HTN (hypertension) Code(s): I10 - ESSENTIAL (PRIMARY) HYPERTENSION Status: Chronic Qualifiers: Hypertension type: essential hypertension Qualified Code(s): I10 - Essential (primary) hypertension (7) Hypothyroidism Code(s): E03.9 - HYPOTHYROIDISM, UNSPECIFIED Status: Chronic Qualifiers: Hypothyroidism type: unspecified Qualified Code(s): E03.9 - Hypothyroidism , unspecified (8) Pacemaker Code(s): Z95.0 - PRESENCE OF CARDIAC PACEMAKER Status: Chronic Comment: due to sss - Plan cont current plan of care, plan discussed w/ family, continue antibiotics * .
--- NOTE | 2018-05-10 16:29 | PQF ---
CLINICAL DOCUMENTATION IMPROVEMENT CLARIFICATION FORM: ICD-10 Updated PLEASE DO AN ADDENDUM TO THE PROGRESS NOTE WITH ANY DOCUMENTATION UPDATES OR ADDITIONS AND CARRY THROUGH TO DC SUMMARY. THANK YOU. DATE: 05/10/2018 ATTN: Dr. Flores Please exercise your independent, professional judgment in responding to the clarification form. Clinical indicators are provided on the bottom of this form for your review Please check appropriate box(es): [ ] Sepsis due to: Pneumonia. [ x] Severe sepsis with acute organ dysfunction of: Acute respiratory failure, ARACELI. [ ] Localized infection without sepsis [ ] Other diagnosis [ ] Unable to determine In addition, please specify: Present on Admission (POA): [ ] Yes [ ] No [ ] Unable to determine For continuity of documentation, please document condition throughout progress notes and discharge summary. Thank You. CLINICAL INDICATORS - SIGNS / SYMPTOMS / LABS ER RECORD 05/07: BP 117/65, PULSE 113, Resp. 25, O2 sat 99 on Bipap Acute resp. distress, bilateral pneumonia renal insufficiency, sepsis H&P 05/07: White count of 23 pn 05/08: not fully oriented but follows verbal stimuli Pneumonia d/t unspecified oganism. bilateral Acute respiratory failure with hypoxia ARACELI RISKS: H&P 05/07: Hx of atrial fib, recent hospitalization with respiratory failure, intubated/ extubated & discharged yesterday to [place] from [facility], BPH, ARACELI dt recent diuresis TREATMENT: Order 05/07: Duoneb 3 ml NEB q6 hr PN 05/08: is on iv fluids, alb infusions - cefepime, vanc, nebs Thank you, Debra (This form is maintained as a part of the permanent medical record) 2015 [employer], [employer] All Rights Reserved Debra Titus RN, BSN [email or web address] Office: [phone] [facility] CENTER[facility]hav[facility]
[2018-05-10] MEDS: Cefepime 1 GM in Sodium Chloride 0.9% 100 ML IVPB SCH (20:17)
[2018-05-11 05:12] LABS: #Lymphocytes 0.1 thou/uL (1.20-3.40); #Monocytes 0.2 thou/uL (0.11-0.59); #Neutrophils 18.1 thou/uL (1.40-6.50); %Eosinophils 0.1 % (0.0-10.0); %Lymphocytes 0.8 % (21.0-51.0); %Monocytes 0.9 % (0.0-10.0); %Neutrophils 98.2 % (42.0-75.0); Hemoglobin 7.6 g/dL (14.0-18.0); Mean Corpuscular HGB CONC 30.8 g/dL (32.0-36.0); Mean Corpuscular Hemoglobin 28.3 pg (27.0-31.0); Mean Corpuscular Volume 91.9 fL (78.0-98.0); Mean Platelet Volume 9.5 fL (7.4-10.4); Platelet Count 130 thou/uL (130-400); RBC Distribution Width 14.5 % (11.5-14.5); White Blood Cell (WBC) Count 18.4 thou/uL (4.8-10.8)
[2018-05-11 05:32] LABS: Anion Gap 17 mmol/L (10-20); BUN (Urea Nitrogen) 93 mg/dL (8.4-25.7); Calc. Creatinine Clearance 21 mL/min (70-130); Calcium 8.8 mg/dL (7.8-10.44); Carbon Dioxide 17 mmol/L (23-31); Chloride 113 mmol/L (98-107); Estimated GFR-MDRD 19; Glucose 162 mg/dL (83-110); Potassium 5.1 mmol/L (3.5-5.1); Sodium 142 mmol/L (136-145)
[2018-05-11] MEDS: Levothyroxine Sodium 100 MCG TAB PO SCH (06:23)
--- NOTE | 2018-05-11 07:59 | RAD ---
AP VIEW CHEST: 05/11/2018 HISTORY: Pneumonia. COMPARISON: 05/09/2018 FINDINGS: AP view chest demonstrates a dual-lead intracardiac pacing device. Cardiomegaly is seen. Diffuse bilateral air space opacities are seen, compatible with bilateral pneumonia. Bilateral pleur al effusions are seen. No evidence of pneumothorax is seen. The radiographic appearance of the ches t is stable and unchanged. IMPRESSION: Stable anterior-posterior view chest with bilateral air space opacity is seen, compatible with bilate ral pneumonia. POS: DENY
[2018-05-11] MEDS: Calcitriol 0.25 MCG CAP PO SCH (09:33)
[2018-05-11] MEDS: Digoxin 0.125 MG TAB PO SCH (09:33)
[2018-05-11] MEDS: Enoxaparin Sodium 30 MG/0.3 ML SYRINGE SC SCH ×2 (09:33→09:47)
[2018-05-11] MEDS: Aspirin 81 mg Enteric Coated Tablet PO SCH (09:33)
[2018-05-11] MEDS: Famotidine 20 MG TAB PO SCH ×2 (09:33→20:26)
[2018-05-11] MEDS: methylPREDNISolone Sod Succ/PF 125 MG/2 ML VIAL IVP SCH ×2 (09:34→20:28)
[2018-05-11] MEDS: Fluticasone Propionate Nasal Spray 16 gm Bottle EA NARE SCH (09:34)
[2018-05-11] MEDS: Furosemide 40 MG/4 ML VIAL SLOW IVP SCH (09:34)
[2018-05-11] MEDS: Terazosin HCl 1 MG CAP PO SCH (09:34)
[2018-05-11] MEDS: Tamsulosin HCl 0.4 MG CAP PO SCH (09:34)
--- NOTE | 2018-05-11 09:47 | PRG ---
DATE OF SERVICE: 05/11/2018 SUBJECTIVE: This morning, he is awake, alert, and responsive. He said he is feeling weak. OBJECTIVE: VITAL SIGNS: His temperature is 99, pulse is 100, sats are 90% on 2 L, and blood pressure 150/70. CHEST: Minimal rhonchi and crackles. CARDIAC: Normal S1 and S2. No gallops. ABDOMEN: No masses. LABORATORY DATA: BUN and creatinine are 93 and 3.15. White count is 18,000, H and H of 7 and 24, platelet count 130. IMPRESSION: 1. Bilateral bronchopneumonia. 2. Renal failure. 3. diastolic dysfunction. PLAN: We will continue Maxipime. I have added doxycycline. Continue steroids, diuretics as per Nephrology. We will follow. Job ID: [id number]
[2018-05-11] MEDS: Doxycycline 100 MG CAP PO SCH ×2 (09:50→20:26)
--- NOTE | 2018-05-11 10:56 | PRG ---
DATE OF SERVICE: 05/11/2018 SUBJECTIVE: Mr. Degroot is an 82-year-old white male, who was admitted for shortness of breath secondary to a pneumonia. Mr. Degroot was also seen by the Renal Service for his acute kidney injury on top of his chronic renal failure. The patient is actually complaining of more shortness of breath. He also developed back his atrial fibrillation/flutter. He has a history of diastolic dysfunction. Repeat chest x-ray shows bilateral pneumonia. No overt CHF was seen. OBJECTIVE: VITAL SIGNS: Blood pressure is noted at 147/66, heart rate is 93, and O2 saturation 95%. GENERAL: Awake, alert, supine, comfortable, not in distress. SKIN: Adequate turgor. HEENT: Slightly pale conjunctivae. Anicteric sclerae. NECK: No neck mass. No carotid bruits. No JVD. CHEST: No deformities. LUNGS: Decreased breath sounds. HEART: Irregular. No murmur. No gallops. No rubs. ABDOMEN: Globular, soft, and nontender. EXTREMITIES: No edema. MEDICATIONS: Medications of May 11, 2018, was reviewed. LABORATORY DATA: Laboratories of May 11, 2018, white count 18.4 and hemoglobin 7.6. Sodium 142, potassium 5.1, chloride 113, carbon dioxide 17, BUN 93, creatinine 3.15, GFR 19 mL/minute, calcium 8.8, and glucose 162. ASSESSMENT AND PLAN: 1. Acute kidney injury/chronic renal failure, worsening renal dysfunction. This may simply reflect the current diuretic regimen. My bias is to add albumin infusion with this patient 25 g IV q.6 for at least 1 to 2 days. Hopefully, this will stabilize his renal dysfunction. There is no indication for any dialytic intervention. 2. Shortness of breath/pneumonia - currently on IV antibiotics. Pulmonary is following. 3. Recheck basic metabolic and CBC in a.m. Job ID: [id number]
[2018-05-11] MEDS: Albumin 25% 25 GM/100 ML BOT IVPB SCH ×3 (12:04→23:40)
--- NOTE | 2018-05-11 18:12 | PDOC.PN ---
- Subjective Encounter Start Date: 05/11/18 Encounter Start Time: 18:11 Subjective: Seen and examined -still ill looking - Objective Resuscitation Status - Order Detail: 05/07/18 14:14 Resuscitation Status Routine Resuscitation Status: FULL: Full Resuscitation Vital Signs & Weight: Vital Signs (12 hours) Temp Pulse Pulse Resp BP BP Pulse Ox 05/11/18 14:47 98.7 F 05/11/18 14:44 78 28 H 95 05/11/18 10:36 98.8 F 05/11/18 09:33 85 05/11/18 08:54 125 H 146/76 H 147/66 H 05/11/18 08:00 95 05/11/18 07:19 99.3 F 05/11/18 06:42 85 24 H 95 Pulse Ox Pulse Ox 05/11/18 14:47 05/11/18 14:44 05/11/18 10:36 05/11/18 09:33 05/11/18 08:54 93 L 94 L 05/11/18 08:00 05/11/18 07:19 05/11/18 06:42 Weight Weight 179 lb 14.4 oz Most Recent Monitor Data Heart Rate from ECG 82 NIBP 149/59 NIBP BP-Mean 89 Respiration from ECG 32 SpO2 97 I&O: 05/10/18 05/11/18 05/12/18 06:59 06:59 06:59 Intake Total 1280 1190 Output Total 500 1230 Balance 780 -40 Result Diagrams: 05/11/18 05:01 05/11/18 05:01 Phys Exam - Physical Examination Constitutional: NAD HEENT: PERRLA, moist MMs, sclera anicteric, TM's clear Neck: no nodes, no JVD, supple Respiratory: no wheezing, no rales, no rhonchi Cardiovascular: no significant murmur Gastrointestinal: non-tender, positive bowel sounds Musculoskeletal: pulses present Neurological: non-focal Dx/Plan (1) ARACELI (acute kidney injury) Code(s): N17.9 - ACUTE KIDNEY FAILURE, UNSPECIFIED Status: Acute Comment: improving creatinine with gentle hydration (2) PNA (pneumonia) Code(s): J18.9 - PNEUMONIA, UNSPECIFIED ORGANISM Status: Acute Qualifiers: Pneumonia type: due to unspecified organism Laterality: bilateral Comment: CONTINUE CEFEPIME, STOP Vanc. (3) Physical deconditioning Code(s): R53.81 - OTHER MALAISE Status: Acute (4) Afib Code(s): I48.91 - UNSPECIFIED ATRIAL FIBRILLATION Status: Chronic Qualifiers: Atrial fibrillation type: paroxysmal Qualified Code(s): I48.0 - Paroxysmal atrial fibrillation Comment: paroxysmal, stopped Eliquis recently due to bleeding. On Digoxin and Diltiazem. (5) Hypothyroidism Code(s): E03.9 - HYPOTHYROIDISM, UNSPECIFIED Status: Chronic Qualifiers: Hypothyroidism type: unspecified Qualified Code(s): E03.9 - Hypothyroidism , unspecified (6) Pacemaker Code(s): Z95.0 - PRESENCE OF CARDIAC PACEMAKER Status: Chronic Comment: due to sss - Plan plan discussed w/ family, PT/OT, social services assistant, respiratory therapy Renal managing his renal function -: On albumin * .
[2018-05-11] MEDS: Cefepime 1 GM in Sodium Chloride 0.9% 100 ML IVPB SCH (20:28)
[2018-05-12] MEDS: Levothyroxine Sodium 100 MCG TAB PO SCH (05:36)
[2018-05-12] MEDS: Albumin 25% 25 GM/100 ML BOT IVPB SCH ×2 (05:36→13:17)
[2018-05-12 06:30] LABS: #Lymphocytes 0.1 thou/uL (1.20-3.40); #Monocytes 0.2 thou/uL (0.11-0.59); #Neutrophils 14.7 thou/uL (1.40-6.50); %Basophils 0.1 % (0.0-1.0); %Lymphocytes 0.5 % (21.0-51.0); %Monocytes 1.1 % (0.0-10.0); %Neutrophils 98.3 % (42.0-75.0); Hemoglobin 6.5 g/dL (14.0-18.0); Mean Corpuscular HGB CONC 32.1 g/dL (32.0-36.0); Mean Corpuscular Hemoglobin 29.5 pg (27.0-31.0); Mean Corpuscular Volume 91.9 fL (78.0-98.0); Mean Platelet Volume 9.9 fL (7.4-10.4); Platelet Count 96 thou/uL (130-400); RBC Distribution Width 14.4 % (11.5-14.5); Red Blood Cell (RBC) Count 2.19 mill/uL (4.70-6.10); White Blood Cell (WBC) Count 14.9 thou/uL (4.8-10.8)
[2018-05-12 06:44] LABS: Anion Gap 23 mmol/L (10-20); Calc. Creatinine Clearance 13 mL/min (70-130); Calcium 8.6 mg/dL (7.8-10.44); Carbon Dioxide 13 mmol/L (23-31); Chloride 109 mmol/L (98-107); Estimated GFR-MDRD 11; Glucose 165 mg/dL (83-110); Potassium 5.9 mmol/L (3.5-5.1); Sodium 139 mmol/L (136-145)
[2018-05-12 06:53] LABS: BUN (Urea Nitrogen) 126 mg/dL (8.4-25.7)
[2018-05-12] MEDS: Acetaminophen 325 MG TAB PO PRN ×2 (07:45→15:56)
[2018-05-12] MEDS ORDERED: Furosemide 100 MG/10 ML VIAL IVPB SCH (08:30)
--- NOTE | 2018-05-12 09:43 | PRG ---
DATE OF SERVICE: 05/12/2018 SUBJECTIVE: Mr. Degroot is an 82-year-old white male, who was admitted for shortness of breath. This was secondary to a persistent pneumonia. He was treated with IV antibiotics. We are following up this patient for his chronic renal failure. During the last several days, renal function has been stable, but however in the last 2-3 days, creatinine has worsened. Initially, I felt that there might be a component of prerenal azotemia. He was started on some albumin infusion yesterday, but the creatinine continued to worsen. It is now 5.08 with a GFR of 11 mL/minute. He was also noted to be hyperkalemic. He has also metabolic acidosis. I had a long discussion with the patient. I did discuss about the possibility of dialysis. He agreed to proceed with it if needed. No new complaints. Still with shortness of breath. Still empirically on IV antibiotics. I have also tried to get in touch with the to discuss the worsening renal dysfunction. OBJECTIVE: VITAL SIGNS: Blood pressure is noted at 134/62 with a heart rate of 76, respiratory rate 24, pulse ox 93%, and temperature 99.5. GENERAL: Awake, alert, comfortable, not in overt distress. SKIN: Adequate turgor. HEENT: He has a pinkish conjunctivae. Anicteric sclerae. No neck mass. No carotid bruits. No JVD. CHEST: No deformities. LUNGS: Decreased breath sounds. HEART: Irregular. ABDOMEN: Globular, soft, nontender. No masses. EXTREMITIES: No edema. No deformities. MEDICATIONS: Medications of May 12, 2018, was reviewed. LABORATORY DATA: Laboratories of May 12, 2018, showed white count 14.9, hemoglobin 6.5. Sodium 139, potassium 5.9, chloride 109, carbon dioxide 13, BUN 126, creatinine 5.08, GFR 11 mL/minute, calcium 8.6. ASSESSMENT AND PLAN: 1. Acute kidney injury, worsening renal dysfunction. Consider the possibility he may have a superimposed acute tubular necrosis. I have ordered a urinalysis and urine chemistries for further review. Furthermore, a renal ultrasound with Doppler was ordered. I doubt he has a bilateral renal infarction. He did develop recurrent atrial fibrillation. His anticoagulation previously was discontinued due to the pulmonary bleeding he had when he was at the [facility]. 2. Hyperkalemia - we will consider initiating dialysis today. A surgical consult was done for femoral dialysis catheter placement. 3. Anemia - the patient has had bronchoscopy recently and bleeding was noted at that time. We will transfuse 1 unit of packed RBC today with this patient. Overall prognosis remains guarded. Job ID: [id number]
[2018-05-12] MEDS: Furosemide 40 MG/4 ML VIAL SLOW IVP SCH (10:00)
[2018-05-12] MEDS: Calcitriol 0.25 MCG CAP PO SCH (10:11)
[2018-05-12] MEDS: Digoxin 0.125 MG TAB PO SCH (10:11)
[2018-05-12] MEDS: Aspirin 81 mg Enteric Coated Tablet PO SCH (10:11)
[2018-05-12] MEDS: Famotidine 20 MG TAB PO SCH ×2 (10:12→20:31)
[2018-05-12] MEDS: Doxycycline 100 MG CAP PO SCH ×2 (10:12→20:31)
[2018-05-12] MEDS: methylPREDNISolone Sod Succ/PF 125 MG/2 ML VIAL IVP SCH ×2 (10:12→20:32)
[2018-05-12] MEDS: Heparin 5,000 UNITS/ML VIAL SC SCH ×2 (10:12→20:32)
[2018-05-12] MEDS: Fluticasone Propionate Nasal Spray 16 gm Bottle EA NARE SCH (10:13)
[2018-05-12] MEDS: Tamsulosin HCl 0.4 MG CAP PO SCH (10:13)
[2018-05-12] MEDS: Terazosin HCl 1 MG CAP PO SCH (10:13)
--- NOTE | 2018-05-12 10:45 | PRG ---
DATE OF SERVICE: 05/12/2018 SUBJECTIVE: This morning, more short of breath, coughing, OBJECTIVE: VITAL SIGNS: Sats are 96% on 2 L, pulse 76, blood pressure 120/80. CHEST: Extensive rhonchi and crackles. CARDIAC: Normal S1, S2. No gallops. ABDOMEN: No masses. LABORATORY DATA: Worsening renal failure. BUN and creatinine 126 and 5.8. White count 14,000, H and H 6 and 20. IMPRESSION: Multiorgan failure, respiratory failure, status post bronch at the [facility]. tells me no diagnostic findings were made following the bronchoscopy. Broad-spectrum antibiotics. All cultures are negative. He is on Lasix, steroids. He was given additionally 80 this morning. Chest x-ray being ordered. Prognosis is grave. I am not so sure whether upper lung biopsy is warranted. He may need dialysis to see whether his pulmonary function improved. We will follow and discuss. Job ID: [id number]
[2018-05-12] MEDS ORDERED: Lidocaine 1% (PF) 30 ML VIAL ONE (11:38)
--- NOTE | 2018-05-12 13:41 | ULT ---
BILATERAL RENAL ULTRASOUND: HISTORY: End stage renal disease. FINDINGS: The right kidney measures 10.6 cm in length and the left kidney measures 9.3 cm in length. There is a 3.2 cm cyst arising from the inferior aspect of the right kidney. The right pelvis is mildly promi nent. No hydronephrosis is seen on either side. The urinary bladder is incompletely distended. IMPRESSION: Right renal cyst. POS: [facility]
--- NOTE | 2018-05-12 13:54 | RAD ---
FRONTAL VIEW CHEST: Date: 05/12/18 COMPARISON: 05/11/18. INDICATION: Shortness of breath. FINDINGS: There has been interval progression of diffuse bilateral alveolar opacities throughout each lung. The re is enlargement of the cardiac silhouette and pulmonary vasculature. Mild pleural based densities a t each inferior chest present. IMPRESSION: 1. Progressive bilateral pulmonary parenchymal opacities which may relate to edema and/or pneumonia. 2. Small volume pleural fluid bilaterally. Recommend continued imaging follow-up. POS: DENY
[2018-05-12] MEDS: Cefepime 1 GM in Sodium Chloride 0.9% 100 ML IVPB SCH (20:30)
--- NOTE | 2018-05-12 21:00 | OP ---
DATE OF PROCEDURE: 05/12/2018 PREOPERATIVE DIAGNOSIS: 1. Acute renal failure. 2. Acute hyperkalemia. POSTOPERATIVE DIAGNOSES: 1. Acute renal failure. 2. Acute hyperkalemia. PROCEDURE PERFORMED: Placement of right femoral Trialysis catheter for hemodialysis. INDICATIONS FOR PROCEDURE: An 82-year-old man presented with worsening acute renal failure at this time, associated with progressive hyperkalemia. I was asked to place a temporary dialysis access for emergent hemodialysis. DESCRIPTION OF OPERATION: Informed consent obtained from the patient and his . The patient was placed in a supine position. Right groin was sterilely prepped and draped in usual fashion. The right femoral artery palpated, and medial to this, overlying skin was infiltrated with 1% lidocaine. The right femoral vein was cannulated with an 18-gauge introducer needle, returning dark venous blood. Guidewire was passed through the needle and advanced to the right femoral vein without resistance. Needle was withdrawn over the guidewire. Stab incision was made adjacent to the guidewire. Dilator was passed over the guidewire, dilating the subcutaneous tissues. The dilator was removed and a triple-lumen Trialysis catheter was advanced over the guidewire and placed in the right femoral vein without resistance. This was advanced down to the hub. The guidewire was removed. Dark venous blood was vigorously withdrawn from all three ports, which were individually flushed with saline followed by straight heparin. The catheter was secured to right groin using 3-0 nylon suture at two points. Sterile dressings were applied. The patient tolerated the procedure without any apparent complication and remains hemodynamically stable following completion of the procedure. Job ID: [id number]
--- NOTE | 2018-05-12 21:40 | PDOC.PN ---
- Subjective Encounter Start Date: 05/12/18 Encounter Start Time: 08:00 Patient seen and examined for Sepsis/Resp failure. Feels gen weak. SOB +. No overnight events - Objective Resuscitation Status - Order Detail: 05/07/18 14:14 Resuscitation Status Routine Resuscitation Status: FULL: Full Resuscitation MAR Reviewed: Yes Vital Signs & Weight: Vital Signs (12 hours) Temp Pulse Resp Pulse Ox 05/12/18 19:38 99.5 F 05/12/18 18:39 94 L 05/12/18 18:38 80 24 H 94 L 05/12/18 15:00 99.0 F 05/12/18 12:57 79 28 H 96 05/12/18 10:45 99.2 F 05/12/18 10:11 76 Weight Weight 182 lb 6.4 oz Most Recent Monitor Data Heart Rate from ECG 80 NIBP 152/67 NIBP BP-Mean 95 Respiration from ECG 31 SpO2 99 I&O: 05/11/18 05/12/18 05/13/18 06:59 06:59 06:59 Intake Total 1740 1000 550 Output Total 1230 250 Balance 510 750 550 Result Diagrams: 05/12/18 05:33 05/12/18 05:33 EKG Reviewed by me: Yes (Tele SR) Phys Exam - Physical Examination Constitutional: NAD Respiratory: no wheezing B/L rhonchi with rales at bases Cardiovascular: RRR, no rub Gastrointestinal: soft, positive bowel sounds Dx/Plan - Plan DVT proph w/SCDs 1. Severe sepsis with acute organ dysfunction due to B/L Pneumonia ?Pneumococcal 2. Acute hypoxic resp failure 3. ARACELI on CKD 3 with hyperkalemis 4. Par Afib - not on Anticoag due to recent pulmonary hemorrhage 5. HTN 6. GERD 7. Other issues per previous notes PLAN: Plan for starting dialysis Change Lovenox to SQ Heparin AM labs Cont Steroids/Atbx Cont other meds as below Check Digoxin level Review of Systems - Review of Systems Respiratory: Cough, Dry, Shortness of Breath, SOB with Excertion. negative: Hemoptysis, Pleuritic Pain, Sputum, Wheezing Gastrointestinal: negative: Nausea, Vomiting, Abdominal Pain, Diarrhea, Constipation, Melena, Hematochezia, Other - Medications/Allergies Allergies/Adverse Reactions: Allergies Allergy/AdvReac Type Severity Reaction Status Date / Time clindamycin Allergy Verified 05/07/18 13:37 ezetimibe Allergy Verified 05/07/18 13:37 [From Vytorin 10-10] losartan Allergy Verified 05/07/18 13:37 Penicillins Allergy Verified 05/07/18 13:37 simvastatin Allergy Verified 05/07/18 13:37 [From Vytorin 10-10] Sulfa (Sulfonamide Allergy Verified 05/07/18 13:37 Antibiotics) Medications: Current Medications Acetaminophen (Tylenol) 650 mg PO Q4H PRN PRN Reason: Headache/Fever/Mild Pain (1-3) Last Admin: 05/12/18 15:56 Dose: 650 mg Albuterol/Ipratropium (Duoneb) 3 ml NEB [id number] [facility] Last Admin: 05/12/18 18:38 Dose: 3 ml Aspirin (Ecotrin) 81 mg PO DAILY [facility] Last Admin: 05/12/18 10:11 Dose: 81 mg Calcitriol (Rocaltrol) 0.25 mcg PO DAILY [facility] Last Admin: 05/12/18 10:11 Dose: 0.25 mcg Digoxin (Lanoxin) 0.125 mg PO DAILY [facility] Last Admin: 05/12/18 10:11 Dose: 0.125 mg Diltiazem HCl (Cardizem Cd) 360 mg PO DAILY [facility] Last Admin: 05/12/18 10:12 Dose: 360 mg Doxycycline Hyclate (Vibramycin) 100 mg PO BID [facility] Stop: 05/18/18 09:01 Last Admin: 05/12/18 20:31 Dose: 100 mg Famotidine (Pepcid) 20 mg PO BID [facility] Last Admin: 05/12/18 20:31 Dose: Not Given Furosemide (Lasix) 40 mg SLOW IVP DAILY [facility] Last Admin: 05/12/18 10:00 Dose: Not Given Guaifenesin/Dextromethorphan (Robitussin Dm) 15 ml PO Q4H PRN PRN Reason: Cough Heparin Sodium (Porcine) (Heparin) 5,000 units SC BID [facility] Last Admin: 05/12/18 20:32 Dose: Not Given Cefepime HCl 1 gm/ Sodium (Chloride) 100 mls @ 200 mls/hr IVPB 2000 [facility] Last Admin: 05/12/18 20:30 Dose: 100 mls Levothyroxine Sodium (Synthroid) 200 mcg PO 0600 [facility] Last Admin: 05/12/18 05:36 Dose: 200 mcg Methylprednisolone Sodium Succinate (Solu-Medrol) 40 mg IVP BID [facility] Last Admin: 05/12/18 20:32 Dose: 40 mg Ondansetron HCl (Zofran) 4 mg IVP Q4H PRN PRN Reason: Nausea/Vomiting Last Admin: 05/11/18 12:03 Dose: 4 mg Ondansetron HCl (Zofran Odt) 4 mg PO Q4H PRN PRN Reason: Nausea/Vomiting Last Admin: 05/09/18 12:33 Dose: 4 mg Fluticasone Propionate Nasal [place] 16 Gm Bottle 0 each EA NARE DAILY [facility] Last Admin: 05/12/18 10:13 Dose: 1 each Senna/Docusate Sodium (Senokot S) 2 tab PO BIDPRN PRN PRN Reason: Constipation Tamsulosin HCl (Flomax) 0.4 mg PO DAILY [facility] Last Admin: 05/12/18 10:13 Dose: 0.4 mg Terazosin HCl (Hytrin) 1 mg PO DAILY [facility] Last Admin: 05/12/18 10:13 Dose: 1 mg
[2018-05-12 22:04] LABS: HBSAB Concentration 1.08 mIU/mL; HBSAg Index 0.33 S/CO (0-0.99); Hep B Core Total Ab Non-Reactive (NonReactive); Hep B Core Total Index 0.05 S/CO (0-0.79); Hep B Surf AB Non-Reactive (NonReactive); Hep B Surf Ag Non-Reactive S/CO (NonReactive); Hep C IgG Ab Non-Reactive (NonReactive); Hep C Index 0.07 S/CO (0-0.79)
[2018-05-13] MEDS ORDERED: Morphine 2 MG/ML SYRINGE SLOW IVP SCH (02:45)
[2018-05-13 04:50] LABS: #Lymphocytes 0.1 thou/uL (1.20-3.40); #Monocytes 0.3 thou/uL (0.11-0.59); #Neutrophils 17.1 thou/uL (1.40-6.50); %Lymphocytes 0.3 % (21.0-51.0); %Monocytes 1.5 % (0.0-10.0); %Neutrophils 98.1 % (42.0-75.0); Hemoglobin 8.2 g/dL (14.0-18.0); Mean Corpuscular HGB CONC 32.4 g/dL (32.0-36.0); Mean Corpuscular Hemoglobin 29.5 pg (27.0-31.0); Mean Corpuscular Volume 91.1 fL (78.0-98.0); Mean Platelet Volume 9.9 fL (7.4-10.4); Platelet Count 86 thou/uL (130-400); RBC Distribution Width 14.4 % (11.5-14.5); Red Blood Cell (RBC) Count 2.79 mill/uL (4.70-6.10); White Blood Cell (WBC) Count 17.5 thou/uL (4.8-10.8)
[2018-05-13 05:00] LABS: ALT (SGPT) 28 U/L (8-55); AST (SGOT) 11 U/L (5-34); Albumin 4.3 g/dL (3.4-4.8); Alkaline Phosphatase 52 U/L (40-150); Anion Gap 24 mmol/L (10-20); Bilirubin, Total 1.1 mg/dL (0.2-1.2); Calc. Creatinine Clearance 11 mL/min (70-130); Calcium 8.6 mg/dL (7.8-10.44); Carbon Dioxide 14 mmol/L (23-31); Chloride 106 mmol/L (98-107); Estimated GFR-MDRD 9; Glucose 144 mg/dL (83-110); Magnesium 2.4 mg/dL (1.6-2.6); Potassium 6.1 mmol/L (3.5-5.1); Protein, Total 6.3 g/dL (5.8-8.1); Sodium 138 mmol/L (136-145)
[2018-05-13 05:01] LABS: Digoxin 1.33 ng/mL (0.8-2.0)
[2018-05-13 05:10] LABS: Phosphorus 9.5 mg/dL (2.3-4.7)
[2018-05-13 05:11] LABS: BUN (Urea Nitrogen) 139 mg/dL (8.4-25.7)
[2018-05-13] MEDS: Levothyroxine Sodium 100 MCG TAB PO SCH (05:51)
--- NOTE | 2018-05-13 07:43 | PRG ---
DATE OF SERVICE: 05/13/2018 SUBJECTIVE: Mr. Degroot is an 82-year-old white male who is followed up by the [facility] for his acute kidney injury on top of his chronic renal failure. Renal function has worsened in the last few days. Due to his progressive azotemia and hyperkalemia, hemodialysis was initiated yesterday. He received 1 hour hemodialysis yesterday. The patient is complaining of some shortness of breath. OBJECTIVE: VITAL SIGNS: Blood pressure is 154/69, heart rate 93, respiratory rate 23, and pulse oximetry 95% on BiPAP. GENERAL: Awake, alert, on BiPAP. SKIN: Adequate turgor. HEENT: He has slightly pale conjunctivae. Anicteric sclerae. No neck mass. No carotid bruits. No JVD. CHEST: No deformities. LUNGS: Decreased breath sounds. HEART: Irregularly irregular. No murmur. Grade 2/6 systolic murmur. No gallops or rubs. ABDOMEN: Globular, soft, and nontender. EXTREMITIES: No edema. MEDICATIONS: Medications of 05/13/2018, was reviewed. LABORATORY DATA: Laboratories of 05/13/2018; white count 17.5, hemoglobin 8.2. Sodium 138, potassium 6.1, chloride 106, carbon dioxide 14, BUN 139, creatinine 6.22, and phosphorus is 9.5. AST 11 and ALT 28. ASSESSMENT AND PLAN: 1. Acute kidney injury/chronic renal failure - the patient has been initiated on hemodialysis. We will do a 2-hour hemodialysis with fluid removal with this patient. 2. Shortness of breath, multifactorial etiology. Max out fluid removal with dialysis. Consider discontinuing furosemide. 3. Anemia - status post blood transfusion. Continue supportive care. 4. Shortness of breath. This is somewhat multifactorial etiology. Underlying intrinsic lung problem and/or congestive heart failure. 5. Overall prognosis remains guarded. Job ID: [id number]
[2018-05-13] MEDS ORDERED: Heparin 10,000 UNITS/ 10 ML VIAL ONE ×3 (08:13→09:34)
--- NOTE | 2018-05-13 08:19 | RAD ---
PORTABLE CHEST: DATE: 05/13/2018. PROVIDED CLINICAL HISTORY: CHF. FINDINGS: Comparison 05/12/2018. Significant interval change with respect to the prior examination is not appar ent. IMPRESSION: As above. POS: [facility]
[2018-05-13] MEDS ORDERED: Midazolam HCl 2 mg/2 ml Vial ONE ×2 (08:42→08:44)
[2018-05-13] MEDS ORDERED: EPINEPHrine 1 MG/10 ML Abboject SYRINGE ONE (08:47)
[2018-05-13] MEDS ORDERED: EPINEPHrine 1 MG/ML AMP ONE (08:47)
[2018-05-13] MEDS ORDERED: Propofol 1,000 MG/100 ML VIAL IV ONE (08:51)
[2018-05-13] MEDS ORDERED: Ventilator Sedation Protocol 1 EACH FS SCH (09:00)
[2018-05-13] MEDS ORDERED: Propofol BOLUS 1,000 MG/100 ML VIAL IV PRN (09:01)
[2018-05-13] MEDS ORDERED: Morphine 2 MG/ML SYRINGE SLOW IVP PRN (09:01)
[2018-05-13] MEDS ORDERED: Fentanyl BOLUS 250 ML IVPB PRN (09:01)
[2018-05-13 09:50] LABS: Actual Bicarbonate (HCO3a) 16.6 mEq/L (22-28); Base Excess (BEa) -9.9 mEq/L (-2.0 to +3.0); Calcium, Ionized 1.08 mmol/L (1.12-1.30); Carboxyhemoglobin (COHb) 1.1 gm% (0.0-3.0); Hemoglobin (Hb) 7.6 g/dL (14.0-18.0); Potassium - ABG Lab 5.65 mmol/L (3.70-5.30)
[2018-05-13 09:52] LABS: Puncture Site RRA; pH, Arterial 7.25 (7.35-7.45)
--- NOTE | 2018-05-13 10:00 | PRG ---
DATE OF SERVICE: 05/13/2018 SUBJECTIVE: An 82-year-old gentleman, progressive respiratory failure, diffuse pulmonary infiltrates. He underwent dialysis yesterday without any change in his x-ray. This morning, the x-ray shows bilateral airspace disease. Discussed with family at length that he will require intubation and vent support for ongoing care since we are unsure what is going on with his pulmonary status. Though he has had extensive workup at a different hospital, all negative. They discussed it with family members that it was felt that he needed to be intubated. He was transferred to the ICU, where cetacaine was sprayed, given a total of 4 mg IV Versed, and bite block in place. 7.5 endotracheal tube was placed over the bronchoscope, passed above the vocal cords. To my surprise, there were copious amounts of bright red frothy bloody secretions arising from both lungs. The right lung was inspected initially; right upper, right mid, and right lower lobe. Large volume of frothy bloody secretion was seen and suction lavaged to clear. No obvious endobronchial disease was seen. The left lung was inspected after that. There was also a large volume of frothy bloody secretions, bright red. This was suction lavaged to clear without any further endobronchial disease or bleeding seen. Bronchoscope was removed. A total of 10 mL of 1:10,000 epinephrine was instilled into both lungs. Bronchoscope was re-passed again to re-lavage. Both lungs are completely clear. He is now connected to volume cycle respirator. OBJECTIVE: VITAL SIGNS: His saturations are 100%, pulse 113, blood pressure 147/80. CHEST: Extensive rhonchi and crackles. CARDIAC: Sinus tachycardia. ABDOMEN: Soft. LABORATORY DATA: His lab this morning shows white count 17,000, H and H 8 and 24, platelet count 86. BUN and creatinine are elevated at 139 and 6.2. Phosphorus 9.4. IMPRESSION: Multiorgan failure; pulmonary hemorrhage, etiology unclear; renal failure; poor nutritional status; anemia. PLAN: 1. Bronch washings sent for cytology, AFB sputum culture, fungal smear and culture, routine Gram stain, and C and S. 2. I will be sending blood for anti-basement antibody assay, JD, and ANCA. 3. Nutrition support, PT, supportive care. Continue steroids. 4. Continue dialysis. 5. Prognosis is grave. This is one-half hour of critical care time exclusive of intubation and exclusive of the bronchoscopy and lavage. Job ID: [id number]
[2018-05-13] MEDS: Digoxin 0.125 MG TAB PO SCH (11:43)
[2018-05-13] MEDS: Aspirin 81 mg Enteric Coated Tablet PO SCH (11:43)
[2018-05-13] MEDS: Fluticasone Propionate Nasal Spray 16 gm Bottle EA NARE SCH (11:44)
[2018-05-13] MEDS: Tamsulosin HCl 0.4 MG CAP PO SCH (11:44)
[2018-05-13] MEDS: Calcitriol 0.25 MCG CAP PO SCH (11:44)
[2018-05-13] MEDS: Famotidine 20 MG TAB PO SCH ×2 (11:44→19:47)
[2018-05-13] MEDS: Terazosin HCl 1 MG CAP PO SCH (11:44)
[2018-05-13] MEDS ORDERED: Amiodarone 150 MG, Admixture Fee 1 EACH in Dextrose 5% in Water 100 ML IVPB SCH (12:15)
--- NOTE | 2018-05-13 13:04 | CON ---
DATE OF CONSULTATION: Critical care note, time, 30 minutes. HISTORY OF PRESENT ILLNESS: This is an unfortunate 82-year-old gentleman, who presented with respiratory failure. The patient has a history of atrial fibrillation, has had placement of electronic pacemaker. The patient recently was hospitalized with a [facility] with an apparent alveolar hemorrhage. The patient prior to admission was on anticoagulation therapy. The patient was in rehab when he presented with respiratory distress. He was brought to the hospital. He had developed progressive dyspnea and had to be emergently intubated today. The patient was unable to give any type of coherent history. PAST MEDICAL HISTORY: 1. Atrial fibrillation. 2. Pacemaker placement. 3. Chronic renal insufficiency. 4. Hypertension. PAST SURGICAL HISTORY: Back surgery and tonsillectomy. MEDICATIONS: See nursing list. ALLERGIES: LOSARTAN, ZOCOR, ZETIA, CLINDAMYCIN, AND SULFA. FAMILY HISTORY: Not obtainable. REVIEW OF SYSTEMS: Not obtainable. PHYSICAL EXAMINATION: GENERAL: This is an intubated gentleman. VITAL SIGNS: Blood pressure 103/58, heart rate is approximately 100. NECK: Full. LUNGS: Lungs have crackles throughout both lung ramos. HEART: Regular rate and rhythm. Normal S1 and S2. ABDOMEN: Nondistended with hypoactive bowel sounds. EXTREMITIES: Showed no edema. LABORATORY DATA: Sodium 138, potassium 6.1, chloride 106, bicarb was 14, BUN 139, creatinine 6.2. White blood cell count 17.5, hemoglobin 8.2, hematocrit 25.4, and platelets were 86. DIAGNOSTIC DATA: His chest x-ray showed diffuse bilateral infiltrates. EKG revealed atrial fibrillation with an electronic ventricular pacemaker. IMPRESSION: 1. Sepsis. 2. Respiratory failure. 3. Probable pulmonary hemorrhage. 4. Hypertension. 5. Acute renal failure. PLAN: This is an unfortunate gentleman, presents with probable alveolar hemorrhage and possible sepsis. His echocardiogram revealed normal left ventricular systolic function. BNP level was not significantly elevated. From a cardiac standpoint the patient has previously been on digoxin and diltiazem. The patient will not be able to be anticoagulated. We would recommend the patient be placed on amiodarone to try to maintain sinus rhythm to lower his risk of developing a thromboembolism. The patient's prognosis is very guarded. Job ID: [id number] [facility]
[2018-05-13] MEDS: Amiodarone 450 MG, Admixture Fee 1 EACH in Dextrose 5% in Water 250 ML IVPB SCH ×2 (13:25→20:53)
[2018-05-13] MEDS: Furosemide 40 MG/4 ML VIAL SLOW IVP SCH (13:26)
[2018-05-13] MEDS: Heparin 5,000 UNITS/ML VIAL SC SCH ×2 (13:27→19:47)
[2018-05-13] MEDS: methylPREDNISolone Sod Succ/PF 125 MG/2 ML VIAL IVP SCH ×2 (13:27→19:47)
[2018-05-13 16:18] LABS: ANA Symphony (Qualitative) Negative (Negative); ANA Symphony (Quantitative) 0.1 Ratio (< 0.7 Negative); dsDNA IgG Antibody 0.8 IU/mL (<10 Negative)
[2018-05-13 16:31] LABS: EliA Vaculitis New Method **** NEW METHOD ****; Glomerular Basemt Membrane Ab Less than 1.9 EliAU/mL (<7 Negative)
[2018-05-13] MEDS: Propofol 1,000 MG/100 ML VIAL IV PRN (16:45)
[2018-05-13] MEDS ORDERED: CYCLOPHOSPHAMIDE IVPB SCH (17:00)
[2018-05-13] MEDS ORDERED: SODIUM CHLORIDE 0.9% IVPB SCH (17:00)
[2018-05-13] MEDS: CYCLOPHOSPHAMIDE IVPB SCH (17:51)
[2018-05-13] MEDS: SODIUM CHLORIDE 0.9% IVPB SCH (17:51)
[2018-05-13] MEDS: Lorazepam 2 MG/ML VIAL SLOW IVP PRN (17:57)
[2018-05-13] MEDS: Cefepime 1 GM in Sodium Chloride 0.9% 100 ML IVPB SCH (19:46)
--- NOTE | 2018-05-13 23:46 | PDOC.PN ---
- Subjective Encounter Start Date: 05/13/18 Encounter Start Time: 08:00 Patient seen and examined for Resp failure. On BiPAP since last night. No overnight events - Objective Resuscitation Status - Order Detail: 05/07/18 14:14 Resuscitation Status Routine Resuscitation Status: FULL: Full Resuscitation MAR Reviewed: Yes Vital Signs & Weight: Vital Signs (12 hours) Temp Pulse Resp BP Pulse Ox 05/13/18 23:00 98.1 F 05/13/18 22:43 75 05/13/18 22:00 24 H 05/13/18 20:00 24 H 05/13/18 19:12 95 05/13/18 19:00 98.6 F 05/13/18 18:26 79 05/13/18 18:25 79 24 H 94 L 05/13/18 16:00 98.0 F 24 H 05/13/18 14:40 74 05/13/18 13:00 97.9 F 05/13/18 12:27 77 145/74 H 05/13/18 12:00 24 H Weight Weight 177 lb 7.554 oz Most Recent Monitor Data Heart Rate from ECG 75 NIBP 111/55 NIBP BP-Mean 73 Respiration from ECG 22 SpO2 95 I&O: 05/12/18 05/13/18 05/14/18 06:59 06:59 06:59 Intake Total 1000 710 687.5 Output Total 250 0 Balance 750 710 687.5 Result Diagrams: 05/13/18 04:21 05/13/18 04:21 EKG Reviewed by me: Yes (Tele SR) Phys Exam - Physical Examination Pt in mild resp distress - on NIPPV Respiratory: no wheezing B/L rhonchi Cardiovascular: RRR, no rub Gastrointestinal: soft, non-tender, positive bowel sounds Musculoskeletal: no edema Dx/Plan - Plan DVT proph w/SCDs 1. Severe sepsis with acute organ dysfunction due to B/L Pneumonia ?Pneumococcal 2. Acute hypoxic resp failure - on NIPPV 3. ARACELI on CKD 3 with hyperkalemis 4. Par Afib - not on Anticoag due to recent pulmonary hemorrhage 5. HTN 6. GERD 7. Other issues per previous notes PLAN: Started on dialysis On NIPPV Consult Cardiology Cont Steroids/Atbx Cont other meds as below AM labs Review of Systems - Review of Systems Constitutional: negative: fever, chills, sweats, weakness, malaise, other Gastrointestinal: negative: Nausea, Vomiting, Abdominal Pain, Diarrhea, Constipation, Melena, Hematochezia, Other - Medications/Allergies Allergies/Adverse Reactions: Allergies Allergy/AdvReac Type Severity Reaction Status Date / Time clindamycin Allergy Verified 05/07/18 13:37 ezetimibe Allergy Verified 05/07/18 13:37 [From Vytorin 10-10] losartan Allergy Verified 05/07/18 13:37 Penicillins Allergy Verified 05/07/18 13:37 simvastatin Allergy Verified 05/07/18 13:37 [From Vytorin 10-10] Sulfa (Sulfonamide Allergy Verified 05/07/18 13:37 Antibiotics) Medications: Current Medications Acetaminophen (Tylenol) 650 mg PO Q4H PRN PRN Reason: Headache/Fever/Mild Pain (1-3) Last Admin: 05/12/18 15:56 Dose: 650 mg Albuterol/Ipratropium (Duoneb) 3 ml NEB [id number] [facility] Last Admin: 05/13/18 18:25 Dose: 3 ml Aspirin (Ecotrin) 81 mg PO DAILY [facility] Last Admin: 05/13/18 11:43 Dose: Not Given Calcitriol (Rocaltrol) 0.25 mcg PO DAILY [facility] Last Admin: 05/13/18 11:44 Dose: Not Given Famotidine (Pepcid) 20 mg PO BID [facility] Last Admin: 05/13/18 19:47 Dose: Not Given Furosemide (Lasix) 40 mg SLOW IVP DAILY [facility] Last Admin: 05/13/18 13:26 Dose: 40 mg Guaifenesin/Dextromethorphan (Robitussin Dm) 15 ml PO Q4H PRN PRN Reason: Cough Heparin Sodium (Porcine) (Heparin) 5,000 units SC BID [facility] Last Admin: 05/13/18 19:47 Dose: 5,000 units Cefepime HCl 1 gm/ Sodium (Chloride) 100 mls @ 200 mls/hr IVPB 2000 [facility] Last Admin: 05/13/18 19:46 Dose: 100 mls Fentanyl Citrate 2,000 mcg/ (Sodium Chloride) 100 mls @ 0 mls/hr IV INF [facility]; Protocol Stop: 06/12/18 09:01 Fentanyl Citrate (Fentanyl Bolus) 250 mls @ 0 mls/hr IVPB PRN PRN PRN Reason: Breakthrough pain/agitation Stop: 06/12/18 09:01 Last Admin: 05/13/18 10:39 Dose: 250 mls Amiodarone HCl 450 mg/Miscellaneous Medication 1 each/ Dextrose/Water 259 mls @ 0 mls/hr IVPB INF [facility]; Protocol Last Admin: 05/13/18 20:53 Dose: 259 mls Cyclophosphamide 0.75 gm/ (Sodium Chloride) 287.5 mls @ 0 mls/hr IVPB Q24HR [facility] Stop: 05/15/18 17:16 Last Admin: 05/13/18 17:51 Dose: 287.5 mls Levothyroxine Sodium (Synthroid) 200 mcg PO 0600 [facility] Last Admin: 05/13/18 05:51 Dose: Not Given Lorazepam (Ativan) 2 mg SLOW IVP Q1H PRN PRN Reason: Breakthrough agitation Stop: 06/12/18 09:01 Last Admin: 05/13/18 17:57 Dose: 2 mg Methylprednisolone Sodium Succinate (Solu-Medrol) 40 mg IVP BID [facility] Last Admin: 05/13/18 19:47 Dose: 40 mg Miscellaneous Medication (Ventilator Sedation Protocol) 1 each FS ONE [facility] Stop: 06/12/18 09:01 Morphine Sulfate (Morphine) 2 mg SLOW IVP Q1H PRN PRN Reason: BREAKTHROUGH PAIN/Agitation Stop: 06/12/18 09:01 Ondansetron HCl (Zofran) 4 mg IVP Q4H PRN PRN Reason: Nausea/Vomiting Last Admin: 05/11/18 12:03 Dose: 4 mg Ondansetron HCl (Zofran Odt) 4 mg PO Q4H PRN PRN Reason: Nausea/Vomiting Last Admin: 05/09/18 12:33 Dose: 4 mg Fluticasone Propionate Nasal [place] 16 Gm Bottle 0 each EA NARE DAILY [facility] Last Admin: 05/13/18 11:44 Dose: Not Given Propofol (Diprivan) 1,000 mg IV INF PRN; Protocol PRN Reason: TO ACHIEVE GOAL RASS Stop: 06/12/18 09:01 Last Admin: 05/13/18 16:45 Dose: 1,000 mg Propofol (Diprivan Bolus) 20 mg IV Q5MIN PRN PRN Reason: BREAKTHROUGH AGITATION Stop: 04/14/19 09:01 Senna/Docusate Sodium (Senokot S) 2 tab PO BIDPRN PRN PRN Reason: Constipation Tamsulosin HCl (Flomax) 0.4 mg PO DAILY [facility] Last Admin: 05/13/18 11:44 Dose: Not Given Terazosin HCl (Hytrin) 1 mg PO DAILY [facility] Last Admin: 05/13/18 11:44 Dose: Not Given
[2018-05-14] MEDS: Propofol 1,000 MG/100 ML VIAL IV PRN ×3 (02:54→20:27)
[2018-05-14] MEDS: fentaNYL Citrate/PF 2,000 MCG in Sodium Chloride 0.9% 60 ML IV SCH (04:21)
[2018-05-14] MEDS: Levothyroxine Sodium 100 MCG TAB PO SCH (05:22)
[2018-05-14 06:42] LABS: #Lymphocytes 0.1 thou/uL (1.20-3.40); #Monocytes 0.3 thou/uL (0.11-0.59); #Neutrophils 9.3 thou/uL (1.40-6.50); %Eosinophils 0.1 % (0.0-10.0); %Lymphocytes 0.5 % (21.0-51.0); %Monocytes 2.8 % (0.0-10.0); %Neutrophils 96.6 % (42.0-75.0); Hemoglobin 6.6 g/dL (14.0-18.0); Mean Corpuscular HGB CONC 33.4 g/dL (32.0-36.0); Mean Corpuscular Hemoglobin 30.2 pg (27.0-31.0); Mean Corpuscular Volume 90.5 fL (78.0-98.0); Mean Platelet Volume 9.9 fL (7.4-10.4); Platelet Count 56 thou/uL (130-400); RBC Distribution Width 14.2 % (11.5-14.5); White Blood Cell (WBC) Count 9.6 thou/uL (4.8-10.8)
[2018-05-14 06:48] LABS: ALT (SGPT) 23 U/L (8-55); AST (SGOT) 9 U/L (5-34); Albumin 3.6 g/dL (3.4-4.8); Alkaline Phosphatase 44 U/L (40-150); Anion Gap 22 mmol/L (10-20); BUN (Urea Nitrogen) 120 mg/dL (8.4-25.7); Bilirubin, Total 0.9 mg/dL (0.2-1.2); Calc. Creatinine Clearance 13 mL/min (70-130); Carbon Dioxide 17 mmol/L (23-31); Chloride 103 mmol/L (98-107); Estimated GFR-MDRD 10; Globulin 1.7 g/dL (2.4-3.5); Glucose 128 mg/dL (83-110); Potassium 5.7 mmol/L (3.5-5.1); Protein, Total 5.3 g/dL (5.8-8.1); Sodium 136 mmol/L (136-145)
[2018-05-14 07:09] LABS: Actual Bicarbonate (HCO3a) 16.3 mEq/L (22-28); Analyzer IN Cardio ER; Base Excess (BEa) -8.3 mEq/L (-2.0 to +3.0); CO2 Tension 29.6 mmHg (35.0-45.0); Calcium, Ionized 0.98 mmol/L (1.12-1.30); Carboxyhemoglobin (COHb) 0.4 gm% (0.0-3.0); Hemoglobin (Hb) 6.8 g/dL (14.0-18.0); O2 Tension (PaO2) 101.8 mmHg (> 60.0); Potassium - ABG Lab 5.43 mmol/L (3.70-5.30); pH, Arterial 7.36 (7.35-7.45)
[2018-05-14 07:20] LABS: Puncture Site RRA
[2018-05-14] MEDS: methylPREDNISolone Sod Succ/PF 125 MG/2 ML VIAL IVP SCH (09:26)
[2018-05-14] MEDS: Furosemide 40 MG/4 ML VIAL SLOW IVP SCH (09:26)
--- NOTE | 2018-05-14 09:35 | RAD ---
PORTABLE CHEST: Date: 05/14/18 HISTORY: CHF. COMPARISON: 05/13/18. FINDINGS: Cardiomegaly. There are bilateral patchy alveolar infiltrates which are prominent in the mid and lowe r lungs. ET tube remains in place. Pacemaker leads unchanged. Small bilateral effusions. Bibasilar atelectasis. IMPRESSION: Bilateral alveolar infiltrates without significant interval change. POS: H
[2018-05-14] MEDS: Heparin 5,000 UNITS/ML VIAL SC SCH (10:31)
--- NOTE | 2018-05-14 11:02 | PRG ---
DATE OF SERVICE: 05/14/2018 HISTORY OF PRESENT ILLNESS: Mr. Degroot is an 82-year-old white male being followed up by the Renal Service for his acute kidney injury. His renal function has worsened in the last few days. For that reason, he has been initiated on dialysis. In addition, he went to acute respiratory failure again. The feeling is that he may have alveolar hemorrhage. I had a discussion with his Puffer Tender, Dr. Giles. Several serologies have been sent for vasculitis workup. At the meantime, we have decided to empirically treat the patient for his most likely vasculitis with Cytoxan. Cytoxan 750 mg IV daily x3 doses been initiated. He is currently on ventilator support. He is currently undergoing dialysis. We are using no heparin. Due to the severe anemia and alveolar hemorrhage, we have discontinued the patient's heparin. OBJECTIVE: VITAL SIGNS: Blood pressure is 128/63, heart rate 70, respiratory rate 23, and O2 saturation is 81%. GENERAL: Noted to be awake, arousable, not in overt distress. SKIN: Adequate turgor. HEENT: Pale conjunctivae. Anicteric sclerae. NECK: No neck mass. No carotid bruits. No JVD. CHEST: No deformities. LUNGS: Bibasilar crackles. HEART: Normal sinus rhythm. No murmur. No gallops. No rubs. ABDOMEN: Globular, soft, and nontender. No masses. EXTREMITIES: No edema. No deformities. MEDICATIONS: Medications of May 14, 2018, was reviewed. LABORATORY DATA: Laboratories May 14, 2018, white count 9.6 and hemoglobin 6.6. Sodium 136, potassium 5.7, chloride 103, carbon dioxide 17, BUN 120, creatinine 5.37, glucose 128, AST 9, and ALT 23. Albumin 3.6. ASSESSMENT AND PLAN: 1. Acute kidney injury - unclear etiology, although acute tubular necrosis is a possibility. The other differential is that he may have an acute renal vasculitis. He has concomitant acute respiratory failure with alveolar hemorrhage. Serologies for vasculitis have been sent. Empiric Cytoxan 750 mg IV daily x3 doses has been initiated with this patient. Case discussed at length with the patient's . 2. Anemia. We will give 2 units of packed RBC with dialysis. 3. Acute respiratory failure - currently intubated on ventilator support. Pulmonary following. The feeling is that he most likely has alveolar hemorrhage. Overall prognosis remains guarded. Job ID: [id number]
[2018-05-14] MEDS: Fluticasone Propionate Nasal Spray 16 gm Bottle EA NARE SCH (13:00)
[2018-05-14] MEDS: Famotidine 20 MG TAB PO SCH ×2 (13:29→20:24)
[2018-05-14] MEDS: Aspirin 81 mg Enteric Coated Tablet PO SCH (13:29)
[2018-05-14] MEDS: Terazosin HCl 1 MG CAP PO SCH (13:29)
[2018-05-14] MEDS: Tamsulosin HCl 0.4 MG CAP PO SCH (13:29)
[2018-05-14] MEDS: Calcitriol 0.25 MCG CAP PO SCH (13:29)
--- NOTE | 2018-05-14 13:42 | EKG ---
Test Reason : Blood Pressure : / mmHG Vent. Rate : 098 BPM Atrial Rate : 241 BPM P-R Int : 000 ms QRS Dur : 128 ms QT Int : 306 ms P-R-T Axes : 000 022 208 degrees QTc Int : 390 ms Atrial fibrillation Non-specific intra-ventricular conduction block Cannot rule out Anteroseptal infarct , age undetermined T wave abnormality, consider inferolateral ischemia or digitalis effect Abnormal ECG Confirmed by AB SINHA, TIAGO ([id number]), news videotape editor LELIA ALTAMIRANO ([id number]) on 05/14/2018 1:42:40 PM Referred By: Confirmed By:TIAGO BERGER MD
--- NOTE | 2018-05-14 15:00 | PDOC.PN ---
- Subjective Encounter Start Date: 05/14/18 Encounter Start Time: 13:58 Admitted with worsening SOB after recent hospitalization at the [facility] during which he was found to have alveolar hemorrhage and inflammatory infiltrates but vasculitis was reportedly ruled out. Respiratory status worsened and was intubated on 05/13/2018. Also developed worsening of renal function associated with hyperkalemia hence started on HD. - Objective Resuscitation Status - Order Detail: 05/07/18 14:14 Resuscitation Status Routine Resuscitation Status: FULL: Full Resuscitation Vital Signs & Weight: Vital Signs (12 hours) Temp Pulse Pulse Resp BP BP Pulse Ox 05/14/18 14:45 82 05/14/18 12:39 84 140/63 05/14/18 12:00 97.9 F 94 24 H 154/79 H 05/14/18 11:45 98.1 F 97 24 H 140/74 05/14/18 11:30 98.0 F 100 24 H 132/80 05/14/18 11:15 98.5 F 80 24 H 133/70 05/14/18 11:00 97.5 F L 104 H 24 H 05/14/18 10:45 97.5 F L 92 24 H 124/78 05/14/18 10:41 78 05/14/18 10:00 24 H 05/14/18 08:00 24 H 05/14/18 07:59 97 05/14/18 07:00 98.5 F 05/14/18 06:56 74 118/65 05/14/18 06:00 24 H 05/14/18 04:00 24 H 05/14/18 03:00 98.2 F Weight Weight 182 lb 12.211 oz Most Recent Monitor Data Heart Rate from ECG 85 NIBP 123/57 NIBP BP-Mean 79 Respiration from ECG 18 SpO2 93 I&O: 05/13/18 05/14/18 05/15/18 06:59 06:59 06:59 Intake Total 710 1147.6 820 Output Total 0 0 Balance 710 1147.6 820 Result Diagrams: 05/14/18 06:04 05/14/18 06:04 Phys Exam - Physical Examination Elderly male. unresponsive HEENT: PERRLA ET tube in place. Ventilator transmitted sound sound all lung zones Cardiovascular: RRR Gastrointestinal: soft, no distention, positive bowel sounds Musculoskeletal: no edema, pulses present Unresponsive Dx/Plan - Plan Acute respiratory failure: Etiology unclear. Acute vasculitis is likely given recent alveolar hemorrhage/inflammatory infiltrates though serologies were negative. Acute bacterial superimposition is possible as well as well. Patient also has budding yeast on gram stain of bronchial washing. 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 Sepsis Possible Pneumonia Possible invasive candidiasis Atrial fibrillation/flutter SSS s/p pacemaker placement COPD left loculated effusion BPH Diastolic HF Hypothyroidism Plan Add pulse steroid as recommended by at risk paraprofessional Already on cytoxan Continue antibiotics Add micafungin for possible pulmonary candidiasis especially with immunosuppression. Vent mgt as per pulmonary. Hd as per nephrology. critically ill with guarded prognosis Continue amiodarone infusion. * .
[2018-05-14] MEDS: Micafungin 100 MG in Sodium Chloride 0.9% 100 ML IVPB SCH (15:42)
[2018-05-14] MEDS: Amiodarone 450 MG, Admixture Fee 1 EACH in Dextrose 5% in Water 250 ML IVPB SCH (15:52)
[2018-05-14] MEDS: methylPREDNISolone Sod Succ 1 GM in Sodium Chloride 0.9% 250 ML 250 ML IVPB SCH (16:14)
[2018-05-14] MEDS ORDERED: Heparin 10,000 UNITS/ 10 ML VIAL ONE (17:34)
[2018-05-14] MEDS: SODIUM CHLORIDE 0.9% IVPB SCH (17:38)
[2018-05-14] MEDS: CYCLOPHOSPHAMIDE IVPB SCH (17:38)
[2018-05-14] MEDS: Cefepime 1 GM in Sodium Chloride 0.9% 100 ML IVPB SCH (19:29)
--- NOTE | 2018-05-14 21:26 | PRG ---
DATE OF SERVICE: 05/14/2018 SUBJECTIVE: Uriah Degroot is in no distress. He would awaken and move all his extremities. He is on a ventilator . OBJECTIVE: VITAL SIGNS: He is afebrile, respiratory rate 24, heart rate 80, blood pressure 122/56. Intake and output was positive 1147. LUNGS: Remarkable for mild rhonchi. HEART: Regular rhythm. ABDOMEN: Soft. EXTREMITIES: Without edema. NEURO: Nonfocal. LABORATORY DATA: White count 9.6, hemoglobin 6.6, platelets 56,000. Sodium 136 , potassium 5.7, chloride 103, bicarb 17, BUN 120, and creatinine 5.37. IMPRESSION AND PLAN: 1. Alveolar hemorrhage of unclear etiology. Sedimentation rate of 2 argues against the vasculitis. 2. The hospitalist ordered 1 g of Solu-Medrol to be given every day for 3 days. He is also started on micafungin. I doubt he has a fungal pneumonia. The yeast species on his bronchial washings is overwhelmingly likely to be a colonizer. 3. We will continue supportive care. I met with his and answered all of her questions. 4. Critical care time was 30 minutes. 5. Blood gases have been reviewed and are stable. His pH is 7.36, CO2 29, pO2 of 101. 6. He has also been started on Cytoxan. 7. I do not see where blood was given today. Job ID: [id number] MTDD
[2018-05-15] MEDS: fentaNYL Citrate/PF 2,000 MCG in Sodium Chloride 0.9% 60 ML IV SCH ×2 (01:29→21:05)
[2018-05-15] MEDS: Levothyroxine Sodium 100 MCG TAB PO SCH (05:19)
[2018-05-15] MEDS: Propofol 1,000 MG/100 ML VIAL IV PRN ×3 (05:19→19:37)
[2018-05-15] MEDS: Amiodarone 450 MG, Admixture Fee 1 EACH in Dextrose 5% in Water 250 ML IVPB SCH ×2 (05:45→22:41)
[2018-05-15 06:46] LABS: Anion Gap 21 mmol/L (10-20); BUN (Urea Nitrogen) 87 mg/dL (8.4-25.7); Calc. Creatinine Clearance 15 mL/min (70-130); Carbon Dioxide 22 mmol/L (23-31); Chloride 99 mmol/L (98-107); Estimated GFR-MDRD 13; Glucose 144 mg/dL (83-110); Sodium 137 mmol/L (136-145)
[2018-05-15 06:54] LABS: Actual Bicarbonate (HCO3a) 21.8 mEq/L (22-28); Analyzer IN Cardio ER; Base Excess (BEa) -1.7 mEq/L (-2.0 to +3.0); CO2 Tension 32.9 mmHg (35.0-45.0); Calcium, Ionized 0.97 mmol/L (1.12-1.30); Carboxyhemoglobin (COHb) 0.3 gm% (0.0-3.0); Hemoglobin (Hb) 10.9 g/dL (14.0-18.0); O2 Tension (PaO2) 102.6 mmHg (> 60.0); Potassium - ABG Lab 4.92 mmol/L (3.70-5.30); pH, Arterial 7.44 (7.35-7.45)
[2018-05-15 06:56] LABS: ALV-art Gradient 141.475 (0-20); Puncture Site RRA
--- NOTE | 2018-05-15 07:32 | PRG ---
DATE OF SERVICE: 05/15/2018 SUBJECTIVE: Mr. Degroot is an 82-year-old white male, who was initially admitted for shortness of breath secondary to pneumonia. His overall clinical condition has worsened. He developed acute kidney injury/acute respiratory failure. He was found to have significant pulmonary hemorrhage. The case was discussed with Dr. Giles. The feeling he may have a pulmonary renal syndrome-such as possible vasculitis. He is being empirically treated for such. We have resent all his serologies. So far, he is JD and anti-GBM have been negative. We are still awaiting for the ANCA. If the diagnosis is uncertain, we can always consider renal biopsy. No acute events noted last night. He is undergoing daily dialysis. In addition, we have started on Cytoxan and pulse steroids. OBJECTIVE: VITAL SIGNS: Blood pressure 118/68, heart rate 78, respiratory rate 24, and pulse ox 96%. GENERAL: The patient is sedated and intubated on ventilator support. SKIN: Adequate turgor. HEENT: He has slightly pale conjunctivae. Anicteric sclerae. NECK: No neck mass. No carotid bruits. No JVD. CHEST: No deformities. LUNGS: Decreased breath sounds. HEART: Normal sinus rhythm. No murmurs, gallops, or rubs. ABDOMEN: Globular, soft, and nontender. No masses. EXTREMITIES: No edema. No deformities. MEDICATIONS: Medications of May 15, 2018, reviewed. LABORATORIES: May 15, 2018, currently pending. ASSESSMENT AND PLAN: 1. Anemia-received 2 units of packed RBC with dialysis yesterday. 2. Acute renal failure-possibility of renal vasculitis is being entertained. He is receiving Cytoxan and pulse steroids. 3. Acute respiratory failure-the feeling this may be also related to underlying vasculitis. Pulmonary is following. His overall prognosis remains guarded. We will be rechecking another basic metabolic panel and CBC today. Job ID: [id number]
[2018-05-15 08:15] LABS: #Lymphocytes 0.1 thou/uL (1.20-3.40); #Monocytes 0.2 thou/uL (0.11-0.59); #Neutrophils 7.8 thou/uL (1.40-6.50); %Eosinophils 0.1 % (0.0-10.0); %Lymphocytes 1.5 % (21.0-51.0); %Neutrophils 96.4 % (42.0-75.0); Hemoglobin 9.1 g/dL (14.0-18.0); Mean Corpuscular HGB CONC 33.7 g/dL (32.0-36.0); Mean Corpuscular Hemoglobin 29.5 pg (27.0-31.0); Mean Corpuscular Volume 87.5 fL (78.0-98.0); Mean Platelet Volume 10.1 fL (7.4-10.4); Platelet Count 55 thou/uL (130-400); RBC Distribution Width 13.8 % (11.5-14.5); Red Blood Cell (RBC) Count 3.09 mill/uL (4.70-6.10); White Blood Cell (WBC) Count 8.1 thou/uL (4.8-10.8)
[2018-05-15] MEDS: Calcitriol 0.25 MCG CAP PO SCH (08:25)
[2018-05-15] MEDS: Aspirin 81 mg Enteric Coated Tablet PO SCH (08:25)
[2018-05-15] MEDS: Tamsulosin HCl 0.4 MG CAP PO SCH (08:25)
[2018-05-15] MEDS: Famotidine 20 MG TAB PO SCH ×2 (08:25→20:21)
[2018-05-15] MEDS: Terazosin HCl 1 MG CAP PO SCH (08:28)
[2018-05-15] MEDS: Fluticasone Propionate Nasal Spray 16 gm Bottle EA NARE SCH (08:36)
--- NOTE | 2018-05-15 09:22 | RAD ---
CHEST 1 VIEW: Date: 05/15/18 HISTORY: Respiratory insufficiency. FINDINGS: Lift support tubes in place and stable. Extensive bilateral alveolar nodular and interstitial parench ymal changes with some confluence bilaterally. Appearance appears slightly improved. Small pleural ef fusions. IMPRESSION: Slight improvement in the extensive bilateral pneumonia. Continue short-term follow-up. POS: DENY
[2018-05-15] MEDS ORDERED: Heparin 1,000 UNITS/ML VIAL ONE (11:11)
--- NOTE | 2018-05-15 14:47 | PDOC.PN ---
- Subjective Encounter Start Date: 05/15/18 Encounter Start Time: 11:23 Subjective: Still intubated and mechanically ventilated. - Objective Resuscitation Status - Order Detail: 05/07/18 14:14 Resuscitation Status Routine Resuscitation Status: FULL: Full Resuscitation Vital Signs & Weight: Vital Signs (12 hours) Temp Pulse Resp BP 05/15/18 13:45 80 121/72 05/15/18 11:29 76 107/65 05/15/18 11:00 97.7 F 05/15/18 10:00 24 H 05/15/18 09:50 77 05/15/18 08:00 24 H 05/15/18 07:15 77 143/82 H 05/15/18 07:00 99.2 F 05/15/18 06:00 24 H 05/15/18 04:53 70 05/15/18 04:00 99.0 F 24 H Weight Weight 181 lb 3.52 oz Most Recent Monitor Data Heart Rate from ECG 78 NIBP 114/67 NIBP BP-Mean 82 Respiration from ECG 22 SpO2 97 I&O: 05/14/18 05/15/18 05/16/18 06:59 06:59 06:59 Intake Total 1147.6 2122.7 Output Total 0 0 0 Balance 1147.6 2122.7 0 Result Diagrams: 05/15/18 05:50 05/15/18 05:50 Phys Exam - Physical Examination Sedated. HEENT: moist MMs ET tube in place Neck: no JVD Ventilator transmitted sound heard in all lung zones Cardiovascular: RRR Gastrointestinal: soft, non-tender, no distention, positive bowel sounds Musculoskeletal: no edema Sedated Dx/Plan (1) Interstitial pneumonitis Code(s): J84.89 - OTHER SPECIFIED INTERSTITIAL PULMONARY DISEASES Status: Acute (2) Acute RPGN (rapidly progressive glomerulonephritis) Code(s): N01.9 - RAPIDLY PROGR NEPHRITIC SYNDROME W UNSP MORPHOLOGIC CHANGES Status: Acute (3) ARACELI (acute kidney injury) Code(s): N17.9 - ACUTE KIDNEY FAILURE, UNSPECIFIED Status: Acute Comment: improving creatinine with gentle hydration (4) PNA (pneumonia) Code(s): J18.9 - PNEUMONIA, UNSPECIFIED ORGANISM Status: Acute Qualifiers: Pneumonia type: due to unspecified organism Laterality: bilateral Comment: CONTINUE CEFEPIME, STOP Vanc. (5) Afib Code(s): I48.91 - UNSPECIFIED ATRIAL FIBRILLATION Status: Chronic Qualifiers: Atrial fibrillation type: paroxysmal Qualified Code(s): I48.0 - Paroxysmal atrial fibrillation Comment: paroxysmal, stopped Eliquis recently due to bleeding. On Digoxin and Diltiazem. (6) CHF (congestive heart failure), NYHA class III Code(s): I50.9 - HEART FAILURE, UNSPECIFIED Status: Chronic Qualifiers: Congestive heart failure type: diastolic Congestive heart failure chronicity: chronic Qualified Code(s): I50.32 - Chronic diastolic (congestive ) heart failure Comment: continue digoxin, hold Lasix for ARACELI, ECHO WITH PRESERVED EF (7) HTN (hypertension) Code(s): I10 - ESSENTIAL (PRIMARY) HYPERTENSION Status: Chronic Qualifiers: Hypertension type: essential hypertension Qualified Code(s): I10 - Essential (primary) hypertension (8) Hypothyroidism Code(s): E03.9 - HYPOTHYROIDISM, UNSPECIFIED Status: Chronic Qualifiers: Hypothyroidism type: unspecified Qualified Code(s): E03.9 - Hypothyroidism , unspecified (9) Acute respiratory failure with hypoxia Code(s): J96.01 - ACUTE RESPIRATORY FAILURE WITH HYPOXIA Status: Resolved - Plan Continue immunosuppressive therapy with pulse steroid and cytoxan. -: Defer kidney biopsy to [facility]. -: Vent mgt as per pulmonary -: HD as per [facility]. getting HD today -: Continue broad spectrum antimicrobials. * .
--- NOTE | 2018-05-15 15:18 | PRG ---
DATE OF SERVICE: 05/15/2018 SUBJECTIVE: Uriah Degroot remains mechanically ventilated. Turned his rate down to 18, his PEEP to 8. I met with the , and answered all her questions. OBJECTIVE: LUNGS: Clear anteriorly. HEART: Regular rhythm. ABDOMEN: Soft and nontender. EXTREMITIES: Without edema. LABORATORY DATA: White count is 8.1, hemoglobin 9.1, platelets 55,000. Sodium 137, potassium 5, chloride 99, bicarb 22, BUN 87, creatinine 4.4. A pH 7.44, CO2 of 32, pO2 of 102. Chest radiograph looked a little better compared to yesterday's film. Intake and output, positive 2121. IMPRESSION: 1. Pulmonary hemorrhage. 2. Respiratory failure, acute. 3. Renal failure. 4. ? Pulmonary-renal syndrome. PLAN: Continue current care. Slow weaning from mechanical ventilation. critical care time 30 minutes Job ID: [id number] MTDD
[2018-05-15] MEDS: Micafungin 100 MG in Sodium Chloride 0.9% 100 ML IVPB SCH (15:25)
[2018-05-15] MEDS: methylPREDNISolone Sod Succ 1 GM in Sodium Chloride 0.9% 250 ML 250 ML IVPB SCH (16:25)
[2018-05-15] MEDS: CYCLOPHOSPHAMIDE IVPB SCH (17:39)
[2018-05-15] MEDS: SODIUM CHLORIDE 0.9% IVPB SCH (17:39)
[2018-05-15] MEDS: Cefepime 1 GM in Sodium Chloride 0.9% 100 ML IVPB SCH (20:21)
[2018-05-16] MEDS: Propofol 1,000 MG/100 ML VIAL IV PRN ×4 (01:57→19:30)
[2018-05-16 03:53] LABS: #Lymphocytes 0.1 thou/uL (1.20-3.40); #Monocytes 0.1 thou/uL (0.11-0.59); #Neutrophils 6.5 thou/uL (1.40-6.50); %Eosinophils 0.1 % (0.0-10.0); %Lymphocytes 0.8 % (21.0-51.0); %Monocytes 2.1 % (0.0-10.0); %Neutrophils 97.1 % (42.0-75.0); Hemoglobin 9.5 g/dL (14.0-18.0); Mean Corpuscular HGB CONC 34.5 g/dL (32.0-36.0); Mean Corpuscular Volume 89.9 fL (78.0-98.0); Mean Platelet Volume 10.2 fL (7.4-10.4); Platelet Count 40 thou/uL (130-400); RBC Distribution Width 13.7 % (11.5-14.5); Red Blood Cell (RBC) Count 3.07 mill/uL (4.70-6.10); White Blood Cell (WBC) Count 6.7 thou/uL (4.8-10.8)
[2018-05-16 04:06] LABS: Anion Gap 20 mmol/L (10-20); BUN (Urea Nitrogen) 57 mg/dL (8.4-25.7); Calc. Creatinine Clearance 21 mL/min (70-130); Calcium 8.2 mg/dL (7.8-10.44); Carbon Dioxide 23 mmol/L (23-31); Chloride 98 mmol/L (98-107); Estimated GFR-MDRD 19; Glucose 198 mg/dL (83-110); Potassium 4.5 mmol/L (3.5-5.1); Sodium 136 mmol/L (136-145)
[2018-05-16] MEDS: Levothyroxine Sodium 100 MCG TAB PO SCH (05:17)
[2018-05-16] MEDS: Acetaminophen 325 MG TAB PO PRN (05:17)
--- NOTE | 2018-05-16 07:11 | CON ---
DATE OF CONSULTATION: 05/15/2018 REASON FOR CONSULTATION: Findings in the bronchoalveolar lavage culture. HISTORY OF PRESENT ILLNESS: Mr. 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 The patient had bilateral pulmonary infiltrates and ended up having to be admitted to the ICU, had extensive evaluation. Eventual bronchoscopy demonstrated diffuse pulmonary hemorrhage. All the microbiology and autoimmune/vasculitis studies were negative. The Eliquis that had been previously started by Dr. Syed was discontinued. The patient was given corticosteroids for a brief period of time, then improved, and then was discharged. After discharge , he was sent to [facility]. Subsequently, he developed hypotension, hypoxemia, tachycardia, worsening dyspnea and he was readmitted through the emergency room here in [facility]. His initial findings included blood pressure 116/66, pulse 110, respiratory rate 24, temperature 97.9, O2 saturation 99% on 2 L nasal cannula. His eye exam was normal. He had normal heart examination except for irregular rhythm. Respiratory exam showed scattered rhonchi. The abdomen was soft without tenderness. Initial EKG showed Q-waves in V1, V2, and V3 with T inversions. White cell count is 23,000, hemoglobin 10, and platelets 223 with 82 % neutrophils. Blood gas with a pH 7.35, pCO2 37, PO2 118, bicarb 20, creatinine 2.3. His serum glucose is 162. Albumin 3.5. Influenza negative. He was initially admitted to the [facility]. He was given broad-spectrum antimicrobial coverage plus corticosteroids. Consultations with Pulmonary Medicine and Nephrology were placed. The impression initially was acute kidney injury superimposed on chronic renal failure. The doxycycline was added 2 days following admission. There was a worsening of his renal function, the creatinine going up to 5.8. On May 13, he had a bronchoscopy and there were copious amounts of bright red frothy bloody secretions from both lungs. He was started on Cytoxan with concern for possible vasculitis which would have to be seronegative. All the serologies for vasculitis were repeated here in the hospital and they were also negative. Echocardiogram demonstrated EF 65%. Normal left ventricular size and function. Trace mitral regurgitation. Mild tricuspid regurgitation. Microbiology with coagulase-negative Staph, likely contaminant of blood sample. The bronchial washing has yielded a presumptive Marisa albicans, likely colonizer of the sample. White cell count has decreased from 18 ,000 down to 9.6 on May 14 and the hemoglobin has dropped to 6.6 and required transfusions of packed red blood cells. The creatinine went up to 6.22. He had dialysis started through a right femoral Trialysis catheter. Currently, the patient is sedated in the ICU has no areas of skin breakdown. 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 PAST SURGICAL HISTORY: Includes pilonidal cyst removal, hemorrhoidectomy, tonsillectomy, appendectomy. According to the patient's , he has been functional up until 2017 and then he started having problems with his cardiac function. SOCIAL HISTORY: . Never smoker. Has been living with his . ALLERGIES: PENICILLIN WITH ANAPHYLACTIC SHOCK. SULFA AND ANTIMICROBIALS WITH RASH. VYTORIN, MYALGIA. CURRENT MEDICATIONS: Include: 1. Tylenol. 2. DuoNeb. 3. Amiodarone. 4. Aspirin. 5. Rocaltrol. 6. Cefepime. 7. Cyclophosphamide. 8. Fentanyl. 9. Levothyroxine. 10. Lorazepam. 11. Methylprednisone. 12. Micafungin. 13. Fluticasone. 14. Propofol. 15. Tamsulosin. 16. Terazosin. PHYSICAL EXAMINATION: VITAL SIGNS: The patient has a T-max of 99.2, BP 105/62, pulse 79, respirations 18, and O2 saturation 95%. SKIN: No areas of skin breakdown. The patient has a Trialysis catheter in the right groin and peripheral IV access in the right upper extremity. GENERAL: Orotracheally intubated. He does not have a Argueta catheter existing, reported output is not very precise because of that. His weight has gone up from 179 to 181. HEENT: The pupils are miotic as expected with tracheal intubation and positive jugular venous distention. LUNGS: Symmetric, coarse breath sounds. HEART: S1 and S2, regular rate. ABDOMEN: Soft, not distended or tender. No ascites. No bladder distention. MUSCULOSKELETAL: No joint inflammatory activity. NEUROLOGIC: Cannot test his neuro function at this time or cognitive function. LABORATORY DATA: His latest labs with a white cell count of 8.1, hemoglobin 9.9 , platelets of 55,000. Sodium 137, creatinine 4.40 after dialysis started. Liver profile normal. Albumin 3.6. Urinalysis with 11 to 20 wbc's. Hepatitis serology nonreactive. Microbiology thus far, we have the one described above already. Bronchial washing, acid-fast was negative. IMAGING STUDIES: We have a chest x-ray with slight improvement in extensive bilateral infiltrates. Renal ultrasound with a right renal cyst. There is a PET scan from 2018, which was to evaluate the nodule in the lung. ASSESSMENT: 1. Cardiomyopathy with atrial fibrillation. 2. Recently started Eliquis and subsequently developed the pulmonary hemorrhage which was identified at the [facility] with an extensive negative evaluation for infectious pathogens or vasculitides. Now the patient has been admitted with recrudescence of pulmonary hemorrhage. The patient has been started on Cytoxan presumptively, and a biopsy will be undertaken for ruling out of vasculitis. It is important to take into account that the patients baseline GFR was in the 20s, therefore it is more likely that the further deterioration does not increase the likelihood of a vasculitis since it is more likely to be a consequence of underlying hemodynamically mediated. The yeast isolated reflects colonization of the airway and does not merit treatment at this point in time. Job ID: [id number] MTDD
[2018-05-16 07:19] LABS: Actual Bicarbonate (HCO3a) 23.4 mEq/L (22-28); Analyzer IN Cardio OR; Base Excess (BEa) -1.4 mEq/L (-2.0 to +3.0); CO2 Tension 39.4 mmHg (35.0-45.0); Calcium, Ionized 1.02 mmol/L (1.12-1.30); Carboxyhemoglobin (COHb) 1.6 gm% (0.0-3.0); Hemoglobin (Hb) 7.8 g/dL (14.0-18.0); O2 Tension (PaO2) 142.4 mmHg (> 60.0); Potassium - ABG Lab 4.39 mmol/L (3.70-5.30); Puncture Site LRA; pH, Arterial 7.39 (7.35-7.45)
--- NOTE | 2018-05-16 08:02 | RAD ---
PORTABLE CHEST: HISTORY: CCU followup. Ventilator followup. COMPARISON: 05/15/2018. FINDINGS: ET tube and NG tube remain in place. There are bilateral lung infiltrates similar to yesterday's exa m. The density of the infiltrates may be slightly less today. Evidence of bilateral effusions. IMPRESSION: Bilateral lung infiltrates possibly improved when compared to yesterday. POS: DENY
[2018-05-16] MEDS ORDERED: Aspirin Chewable 81 MG TAB PO SCH (09:00)
--- NOTE | 2018-05-16 09:12 | PRG ---
DATE OF SERVICE: 05/16/2018 This is a 35 minutes of critical care time. SUBJECTIVE: Mr. Degroot remains intubated on mechanical ventilation. I have spoke with Dr. Giles and have reviewed the data on the chart. OBJECTIVE: VITAL SIGNS: His temperature is 99.3, pulse 76, blood pressure 126/75, and O2 saturation 98%. He is on no vasopressor therapy. He is sedated with propofol and fentanyl. He is receiving amiodarone for paroxysmal atrial fibrillation. His intake for the last 24 hours was 1584 mL. His urine output was essentially zero and he had 3000 removed by dialysis. HEENT: Unremarkable. NECK: No JVD. CHEST: Clear anteriorly. CARDIAC: S1 and S2. Regular with amiodarone drip. ABDOMEN: Soft and nontender. EXTREMITIES: No clubbing, cyanosis, or edema. LABORATORY DATA: White blood cell count 6.7, hemoglobin 9.5, hematocrit 27.6, and platelet count 40. ABG; pH of 7.39, pCO2 of 39, pO2 of 142 on SIMV rate 18, tidal volume 500, PEEP 8, pressure support 10, and FiO2 of 40%. Sodium 136, potassium 4.5, chloride 98, CO2 of 23, BUN 57, creatinine 3.1, and glucose 198. His urinalysis from the time of admission showed numerous white blood cells. His immunology profile so far has not shown evidence of vasculitis. Chest x-ray shows some clearing of the bilateral infiltrates. ASSESSMENT: 1. Acute hypoxic respiratory failure, requiring mechanical ventilation. 2. Pneumonia versus fluid overloaded versus pulmonary alveolar hemorrhage syndrome. 3. Acute on chronic renal failure. 4. Diastolic heart dysfunction. PLAN: 1. I will go ahead and go down on his respiratory rate on the ventilator today. I think he will need mechanical ventilation for a day or 2 more. 2. Continue dialysis. 3. He is receiving his last day of Cytoxan and high-dose IV Solu-Medrol today. I think afterwards, we can stop the immunosuppression and see how he does. 4. Stop micafungin. 5. Continue enteral tube feeds. 6. Prognosis is very guarded. Job ID: [id number]
[2018-05-16] MEDS: Tamsulosin HCl 0.4 MG CAP PO SCH (09:33)
[2018-05-16] MEDS: Calcitriol 0.25 MCG CAP PO SCH (09:34)
[2018-05-16] MEDS: Famotidine 20 MG TAB PO SCH (09:34)
[2018-05-16] MEDS: Terazosin HCl 1 MG CAP PO SCH (09:37)
[2018-05-16] MEDS: Fluticasone Propionate Nasal Spray 16 gm Bottle EA NARE SCH (09:42)
--- NOTE | 2018-05-16 09:52 | PRG ---
DATE OF SERVICE: 05/16/2018 SERVICE: Renal Medicine. SUBJECTIVE: Mr. Degroot is an 82-year-old white male, who was admitted for shortness of breath secondary to presumed pneumonia. His respiratory function worsen. It went to acute pulmonary edema - noncardiogenic and was subsequently intubated and placed on ventilator support. The feeling by Pulmonary is that there may be alveolar hemorrhage. In addition, renal function worsen. He is being treated for possible pulmonary renal syndrome secondary to vasculitis ? Serologies have been sent. The only serology pending is the ANCA. His anti-GBM antibody as well as JD were all negative. He receives Cytoxan and Solu-Medrol in the last 3 days. He also has been dialyzing due to the acute renal failure that has worsen. No other complaints today. OBJECTIVE: VITAL SIGNS: Blood pressure is 126/75, heart rate 76, respiratory rate 17, and pulse ox 98%. GENERAL: The patient is awake and follows simple commands, intubated on ventilator support. SKIN: Adequate turgor. HEENT: Slightly pale conjunctivae. Anicteric sclerae. NECK: No neck mass. No carotid bruits. No JVD. CHEST: No deformities. LUNGS: Decreased breath sounds. Positive for crackles. HEART: Normal sinus rhythm. No murmurs. No gallops. No rubs. ABDOMEN: Globular, soft, and nontender. No masses. EXTREMITIES: No edema. No deformities. MEDICATIONS: Medications of May 16, 2018, reviewed. LABORATORY DATA: Laboratories of May 16, 2018; white count 6.7, hemoglobin 9.5. Sodium 136, potassium 4.5, chloride 98, carbon dioxide 23, BUN 57, creatinine 3.1, glucose 198, and calcium 8.2. ASSESSMENT AND PLAN: 1. Acute kidney injury - consider the possibility of acute tubular necrosis versus an acute glomerulonephritis secondary to a possible vasculitis. I have not excluded in considering renal biopsy once the patient becomes more stable. 2. Acute respiratory failure secondary to alveolar hemorrhage/congestive heart failure. Currently intubated on ventilator support. 3. Overall, the patient has received Cytoxan and steroids for a possible vasculitis. Review of the chest x-ray shows a slight improvement. 4. Anemia - stable. P.r.n. blood transfusion. No dialysis indicated today. We will resume dialysis for 4 hours tomorrow. Job ID: [id number]
--- NOTE | 2018-05-16 15:12 | PDOC.PN ---
- Subjective Encounter Start Date: 05/16/18 Encounter Start Time: 15:09 Subjective: remains intubated and care discussed w daughter at bedside.chart reviewed -: discussed w RN. -: no ON events. - Objective Resuscitation Status - Order Detail: 05/07/18 14:14 Resuscitation Status Routine Resuscitation Status: FULL: Full Resuscitation MAR Reviewed: Yes Vital Signs & Weight: Vital Signs (12 hours) Temp Pulse Resp BP Pulse Ox 05/16/18 14:34 91 120/64 05/16/18 14:00 22 H 05/16/18 13:28 76 136/59 L 05/16/18 13:26 76 16 98 05/16/18 11:32 17 05/16/18 11:20 77 127/64 05/16/18 11:00 99.1 F 05/16/18 10:00 19 05/16/18 08:00 19 98 05/16/18 07:00 99.3 F 05/16/18 06:43 76 104/49 L 05/16/18 06:41 76 20 98 05/16/18 06:00 18 05/16/18 05:00 99.4 F 05/16/18 04:00 99.0 F 30 H Weight Weight 176 lb 2.389 oz Most Recent Monitor Data Heart Rate from ECG 112 NIBP 120/64 NIBP BP-Mean 82 Respiration from ECG 12 SpO2 98 I&O: 05/15/18 05/16/18 05/17/18 06:59 06:59 06:59 Intake Total 2122.7 1584 125 Output Total 0 0 0 Balance 2122.7 1584 125 Result Diagrams: 05/16/18 03:41 05/16/18 03:41 Additional Labs: Microbiology 05/13/18 08:40 Bronchial Washing Respiratory Culture - Final Presumptive Marisa albicans 05/13/18 08:40 Bronchial Washing Acid Fast Bacilli Smear - Final 05/07/18 08:51 Venous blood - Right Hand Blood Culture - Final NO GROWTH IN 5 DAYS 05/07/18 08:48 Venous blood - Left Hand Blood Culture - Final Coagulase Neg Staphylococcus 05/07/18 08:31 Nasopharyngeal swab Influenza Types A,B Direct EIA - Final Laboratory Tests 03/14/18 04/19/18 05/07/18 09:16 10:46 08:49 Hgb 10.0 L Plt Count Creatinine 2.16 H 2.59 H Lactic Acid Lipase JD Screen JD Scrn Qualitative Anti-ds DNA IgG Ab Glomerular Base Memb Ab Hep Bs Antigen Hep Bs Antibody Hep Bs Antibody Index Hep B Core Total Ab Hepatitis C Antibody 05/07/18 05/07/18 05/08/18 08:49 08:50 05:27 Hgb Plt Count Creatinine 2.30 H 1.92 H Lactic Acid 1.8 Lipase 183 H JD Screen JD Scrn Qualitative Anti-ds DNA IgG Ab Glomerular Base Memb Ab Hep Bs Antigen Hep Bs Antibody Hep Bs Antibody Index Hep B Core Total Ab Hepatitis C Antibody 05/08/18 05/09/18 05/10/18 05:27 06:27 05:21 Hgb 8.0 L 7.0 L Plt Count Creatinine 2.64 H Lactic Acid Lipase JD Screen JD Scrn Qualitative Anti-ds DNA IgG Ab Glomerular Base Memb Ab Hep Bs Antigen Hep Bs Antibody Hep Bs Antibody Index Hep B Core Total Ab Hepatitis C Antibody 05/10/18 05/11/18 05/11/18 05:21 05:01 05:01 Hgb 7.6 L 7.6 L Plt Count 130 Creatinine 3.15 H Lactic Acid Lipase JD Screen JD Scrn Qualitative Anti-ds DNA IgG Ab Glomerular Base Memb Ab Hep Bs Antigen Hep Bs Antibody Hep Bs Antibody Index Hep B Core Total Ab Hepatitis C Antibody 05/12/18 05/12/18 05/12/18 05:33 05:33 13:02 Hgb 6.5 L Plt Count 96 L Creatinine 5.08 H Lactic Acid Lipase JD Screen JD Scrn Qualitative Anti-ds DNA IgG Ab Glomerular Base Memb Ab Hep Bs Antigen Non-Reactive Hep Bs Antibody Non-Reactive Hep Bs Antibody Index 1.08 Hep B Core Total Ab Non-Reactive Hepatitis C Antibody Non-Reactive 05/13/18 05/13/18 05/13/18 04:21 04:21 09:43 Hgb 8.2 L Plt Count 86 L Creatinine 6.22 H Lactic Acid Lipase JD Screen JD Scrn Qualitative Anti-ds DNA IgG Ab Glomerular Base Memb Ab Less than 1.9 Hep Bs Antigen Hep Bs Antibody Hep Bs Antibody Index Hep B Core Total Ab Hepatitis C Antibody 05/13/18 05/14/18 05/14/18 09:43 06:04 06:04 Hgb 6.6 L Plt Count 56 L Creatinine 5.37 H Lactic Acid Lipase JD Screen Negative JD Scrn Qualitative Negative Anti-ds DNA IgG Ab 0.8 Glomerular Base Memb Ab Hep Bs Antigen Hep Bs Antibody Hep Bs Antibody Index Hep B Core Total Ab Hepatitis C Antibody 05/15/18 05/15/18 05/16/18 05:50 05:50 03:41 Hgb 9.1 L Plt Count 55 L Creatinine 4.40 H 3.10 H Lactic Acid Lipase JD Screen JD Scrn Qualitative Anti-ds DNA IgG Ab Glomerular Base Memb Ab Hep Bs Antigen Hep Bs Antibody Hep Bs Antibody Index Hep B Core Total Ab Hepatitis C Antibody 05/16/18 03:41 Hgb 9.5 L Plt Count 40 L Creatinine Lactic Acid Lipase JD Screen JD Scrn Qualitative Anti-ds DNA IgG Ab Glomerular Base Memb Ab Hep Bs Antigen Hep Bs Antibody Hep Bs Antibody Index Hep B Core Total Ab Hepatitis C Antibody Phys Exam - Physical Examination Constitutional: NAD HEENT: PERRLA, moist MMs, sclera anicteric, oral pharynx no lesions Neck: no nodes, no JVD, supple, full ROM Respiratory: no wheezing, no rales, no rhonchi, clear to auscultation bilateral Cardiovascular: RRR, no significant murmur, no rub Gastrointestinal: soft, non-tender, no distention, positive bowel sounds Musculoskeletal: no edema, pulses present Neurological: non-focal, normal sensation, moves all 4 limbs Psychiatric: normal affect, A&O x 3 Skin: no rash Dx/Plan (1) Acute respiratory failure with hypoxia Code(s): J96.01 - ACUTE RESPIRATORY FAILURE WITH HYPOXIA Status: Resolved Comment: vent support (2) ARACELI (acute kidney injury) Code(s): N17.9 - ACUTE KIDNEY FAILURE, UNSPECIFIED Status: Acute Comment: improving creatinine with gentle hydration (3) ACUTE PULMONARY HEMORRHAGE Status: Acute Comment: Unclear etiology .BAL Cx negative so far.path pending.Vasculitis work up negative so far. Off of OAC for almost 10-14 days. S/P Cytoxan. ON IV steroids (4) Thrombocytopenia Code(s): D69.6 - THROMBOCYTOPENIA, UNSPECIFIED Status: Acute (5) Physical deconditioning Code(s): R53.81 - OTHER MALAISE Status: Acute (6) Afib Code(s): I48.91 - UNSPECIFIED ATRIAL FIBRILLATION Status: Chronic Qualifiers: Atrial fibrillation type: paroxysmal Qualified Code(s): I48.0 - Paroxysmal atrial fibrillation Comment: paroxysmal, stopped OAC recently due to bleeding. on Amiodarone . (7) HTN (hypertension) Code(s): I10 - ESSENTIAL (PRIMARY) HYPERTENSION Status: Chronic Qualifiers: Hypertension type: essential hypertension Qualified Code(s): I10 - Essential (primary) hypertension (8) Hypothyroidism Code(s): E03.9 - HYPOTHYROIDISM, UNSPECIFIED Status: Chronic Qualifiers: Hypothyroidism type: unspecified Qualified Code(s): E03.9 - Hypothyroidism , unspecified (9) Pacemaker Code(s): Z95.0 - PRESENCE OF CARDIAC PACEMAKER Status: Chronic Comment: due to sss - Plan DVT proph w/SCDs supportive care. follow final path results -: hemodialysis per Nephrology.avoid nephrotoxins -: Monitor platelets. if lower than today,will transfuse to reduce risk of ble -: bleeding.HD stable -: Vent weaning per PCCM.apprecite input.guarded prognosis * .am labs * replace lytes per protocol Review of Systems - Review of Systems Other: can not be obtained due to sedated and intubated - Medications/Allergies Allergies/Adverse Reactions: Allergies Allergy/AdvReac Type Severity Reaction Status Date / Time clindamycin Allergy Verified 05/07/18 13:37 ezetimibe Allergy Verified 05/07/18 13:37 [From Vytorin 10-10] losartan Allergy Verified 05/07/18 13:37 Penicillins Allergy Verified 05/07/18 13:37 simvastatin Allergy Verified 05/07/18 13:37 [From Vytorin 10-10] Sulfa (Sulfonamide Allergy Verified 05/07/18 13:37 Antibiotics) Medications: Current Medications Acetaminophen (Tylenol) 650 mg PO Q4H PRN PRN Reason: Headache/Fever/Mild Pain (1-3) Last Admin: 05/16/18 05:17 Dose: 650 mg Albuterol/Ipratropium (Duoneb) 3 ml NEB [id number] [facility] Last Admin: 05/16/18 13:26 Dose: 3 ml Amiodarone HCl (Cordarone) 400 mg PO BID [facility] Calcitriol (Rocaltrol) 0.25 mcg PO DAILY [facility] Last Admin: 05/16/18 09:34 Dose: 0.25 mcg Famotidine (Pepcid) 20 mg PO DAILY [facility] Last Admin: 05/16/18 09:34 Dose: 20 mg Guaifenesin/Dextromethorphan (Robitussin Dm) 15 ml PO Q4H PRN PRN Reason: Cough Cefepime HCl 1 gm/ Sodium (Chloride) 100 mls @ 200 mls/hr IVPB 2000 ARMANI Last Admin: 05/15/18 20:21 Dose: 100 mls Fentanyl Citrate 2,000 mcg/ (Sodium Chloride) 100 mls @ 0 mls/hr IV INF ARMANI; Protocol Stop: 06/12/18 09:01 Last Admin: 05/15/18 21:05 Dose: 100 mls Fentanyl Citrate (Fentanyl Bolus) 250 mls @ 0 mls/hr IVPB PRN PRN PRN Reason: Breakthrough pain/agitation Stop: 06/12/18 09:01 Last Admin: 05/13/18 10:39 Dose: 250 mls Methylprednisolone Sodium Succinate 1 gm/ Sodium Chloride 266 mls @ 266 mls/hr IVPB Q24HR [facility] Stop: 05/16/18 16:59 Last Admin: 05/15/18 16:25 Dose: 266 mls Levothyroxine Sodium (Synthroid) 200 mcg PO 0600 [facility] Last Admin: 05/16/18 05:17 Dose: 200 mcg Lorazepam (Ativan) 2 mg SLOW IVP Q1H PRN PRN Reason: Breakthrough agitation Stop: 06/12/18 09:01 Last Admin: 05/13/18 17:57 Dose: 2 mg Miscellaneous Medication (Ventilator Sedation Protocol) 1 each FS ONE [facility] Stop: 06/12/18 09:01 Morphine Sulfate (Morphine) 2 mg SLOW IVP Q1H PRN PRN Reason: BREAKTHROUGH PAIN/Agitation Stop: 06/12/18 09:01 Ondansetron HCl (Zofran) 4 mg IVP Q4H PRN PRN Reason: Nausea/Vomiting Last Admin: 05/11/18 12:03 Dose: 4 mg Ondansetron HCl (Zofran Odt) 4 mg PO Q4H PRN PRN Reason: Nausea/Vomiting Last Admin: 05/09/18 12:33 Dose: 4 mg Fluticasone Propionate Nasal [place] 16 Gm Bottle 0 each EA NARE DAILY [facility] Last Admin: 05/16/18 09:42 Dose: Not Given Propofol (Diprivan) 1,000 mg IV INF PRN; Protocol PRN Reason: TO ACHIEVE GOAL RASS Stop: 06/12/18 09:01 Last Admin: 05/16/18 14:04 Dose: 1,000 mg Propofol (Diprivan Bolus) 20 mg IV Q5MIN PRN PRN Reason: BREAKTHROUGH AGITATION Stop: 06/12/18 09:01 Senna/Docusate Sodium (Senokot S) 2 tab PO BIDPRN PRN PRN Reason: Constipation Tamsulosin HCl (Flomax) 0.4 mg PO DAILY [facility] Last Admin: 05/16/18 09:33 Dose: 0.4 mg Terazosin HCl (Hytrin) 1 mg PO DAILY [facility] Last Admin: 05/16/18 09:37 Dose: 1 mg
[2018-05-16] MEDS: fentaNYL Citrate/PF 2,000 MCG in Sodium Chloride 0.9% 60 ML IV SCH (16:29)
[2018-05-16] MEDS: methylPREDNISolone Sod Succ 1 GM in Sodium Chloride 0.9% 250 ML 250 ML IVPB SCH (17:10)
[2018-05-16] MEDS: Cefepime 1 GM in Sodium Chloride 0.9% 100 ML IVPB SCH (20:27)
[2018-05-16] MEDS: Amiodarone 200 MG TAB PO SCH (20:27)
[2018-05-17] MEDS: Lorazepam 2 MG/ML VIAL SLOW IVP PRN ×2 (02:09→11:02)
[2018-05-17] MEDS: Propofol 1,000 MG/100 ML VIAL IV PRN ×3 (02:23→22:26)
[2018-05-17] MEDS: Levothyroxine Sodium 100 MCG TAB PO SCH (05:07)
[2018-05-17 05:42] LABS: #Neutrophils 2.8 thou/uL (1.40-6.50); %Basophils 0.2 % (0.0-1.0); %Eosinophils 0.2 % (0.0-10.0); %Lymphocytes 1.1 % (21.0-51.0); %Monocytes 0.9 % (0.0-10.0); %Neutrophils 97.6 % (42.0-75.0); Anion Gap 23 mmol/L (10-20); BUN (Urea Nitrogen) 103 mg/dL (8.4-25.7); Calc. Creatinine Clearance 14 mL/min (70-130); Calcium 7.7 mg/dL (7.8-10.44); Carbon Dioxide 20 mmol/L (23-31); Chloride 96 mmol/L (98-107); Estimated GFR-MDRD 12; Glucose 206 mg/dL (83-110); Hemoglobin 8.2 g/dL (14.0-18.0); Mean Corpuscular Volume 90.9 fL (78.0-98.0); Mean Platelet Volume 10.6 fL (7.4-10.4); Platelet Count 32 thou/uL (130-400); Potassium 5.3 mmol/L (3.5-5.1); RBC Distribution Width 13.3 % (11.5-14.5); Red Blood Cell (RBC) Count 2.72 mill/uL (4.70-6.10); Sodium 134 mmol/L (136-145); White Blood Cell (WBC) Count 2.9 thou/uL (4.8-10.8)
[2018-05-17 07:14] LABS: Actual Bicarbonate (HCO3a) 22.3 mEq/L (22-28); Analyzer IN Cardio OR; Base Excess (BEa) -3.9 mEq/L (-2.0 to +3.0); CO2 Tension 46.2 mmHg (35.0-45.0); Calcium, Ionized 1.01 mmol/L (1.12-1.30); Carboxyhemoglobin (COHb) 0.9 gm% (0.0-3.0); Hemoglobin (Hb) 7.6 g/dL (14.0-18.0); Potassium - ABG Lab 4.34 mmol/L (3.70-5.30)
[2018-05-17 07:15] LABS: Puncture Site LRA
--- NOTE | 2018-05-17 08:41 | PRG ---
DATE OF SERVICE: 05/17/2018 This is a 35 minutes of critical care time. SUBJECTIVE: The patient remains intubated on mechanical ventilation. There have been no acute changes overnight. OBJECTIVE: VITAL SIGNS: On exam, his temperature is 97.6, pulse 70, blood pressure 118/64, sat 100%. 24 hours intake 2604, output was 0. Did not receive dialysis yesterday. HEENT: Unremarkable. NECK: No adenopathy, JVD. LUNGS: Fairly clear anteriorly. CARDIAC: S1, S2 regular. ABDOMEN: Soft, nontender. EXTREMITIES: No edema. LABORATORY DATA: White blood cell count 3.9, hematocrit 24.7, and platelet count 32. ABG: pH 7.30, pCO2 of 46, po2 of 151 on SIMV rate 12, tidal volume 500, PEEP 8, pressure support 10 and FiO2 of 40%. Sodium 134, potassium 5.3, chloride 96, CO2 20, BUN 106, creatinine 4.6, glucose 206. His ANCA is not back yet. IMAGING: Chest x-ray was not done today. ASSESSMENT: 1. Acute respiratory failure from mechanical ventilation. 2. Acute renal failure. 3. Pneumonia versus fluid overload versus pulmonary alveolar hemorrhage syndrome. 4. Diastolic heart dysfunction. PLAN: 1. Dialysis today. 2. Re-attempt weaning after dialysis . 3. Hold any type of anticoagulation, given his thrombocytopenia. Job ID: [id number]
[2018-05-17] MEDS: Fluticasone Propionate Nasal Spray 16 gm Bottle EA NARE SCH (09:17)
[2018-05-17] MEDS: Terazosin HCl 1 MG CAP PO SCH (09:39)
[2018-05-17] MEDS: Calcitriol 0.25 MCG CAP PO SCH (09:39)
[2018-05-17] MEDS: Amiodarone 200 MG TAB PO SCH ×3 (09:39→20:40)
[2018-05-17] MEDS: Tamsulosin HCl 0.4 MG CAP PO SCH (09:40)
[2018-05-17] MEDS: fentaNYL Citrate/PF 2,000 MCG in Sodium Chloride 0.9% 60 ML IV SCH (09:57)
[2018-05-17] MEDS: Pantoprazole 40 MG VIAL IVP SCH (10:03)
[2018-05-17] MEDS: Famotidine 20 MG TAB PO SCH (10:04)
--- NOTE | 2018-05-17 10:28 | PRG ---
DATE OF SERVICE: 05/17/2018 SERVICE: Renal Medicine. SUBJECTIVE: Mr. Degroot is an 82-year-old white male, who is followed up by the Renal Service for his chronic renal failure. Renal function has worsened in the last several days. For that reason, he was placed on dialysis. In addition, he developed acute respiratory failure, has been intubated. Review of his history suggests he may have a pulmonary renal syndrome. Serologies have been sent. As previously mentioned, the anti-GBM as well as JD were all negative. We are still waiting for the ANCA. We are treating this patient for presumed vasculitis. He has received three courses of Cytoxan and Solu-Medrol. My plan is to maintain him on daily prednisone at 40 mg tablet once a day. He continues to be on dialysis. He is undergoing dialysis today and I am at the bedside supervising his dialysis. No acute events noted last night. OBJECTIVE: VITAL SIGNS: Blood pressure 137/87, heart rate 117, respiratory rate is 29, and pulse ox 99%. GENERAL: Arousable, not in distress. Intubated on ventilator support. HEENT: He has slightly pale conjunctivae. Anicteric sclerae. NECK: No neck mass. No carotid bruits. No JVD. CHEST: No deformities. LUNGS: Decreased breath sounds. HEART: Normal sinus rhythm. No murmurs, gallops, or rubs. ABDOMEN: Globular, soft, nontender. No masses. EXTREMITIES: No edema. No deformities. MEDICATIONS: May 17, 2018, reviewed. LABORATORY DATA: May 17, 2018; white count 2.9, hemoglobin 8.2. Sodium 134, potassium is 5.3, chloride 96, carbon dioxide 20, BUN 103, creatinine 4.65, glucose 206, calcium 7.7. ASSESSMENT AND PLAN: 1. Acute kidney injury secondary to a presumed acute glomerulonephritis. The patient is undergoing hemodialysis. He has received Cytoxan secondary to a presumed vasculitis. 2. Acute respiratory failure-clinical history is suggestive of alveolar hemorrhage. Continue supportive care, status post Cytoxan. 3. Anemia, p.r.n. blood transfusion. 4. Overall prognosis remains guarded. Consider renal biopsy once the patient is more stable. Job ID: [id number]
[2018-05-17] MEDS ORDERED: Heparin 10,000 UNITS/ 10 ML VIAL ONE (12:00)
--- NOTE | 2018-05-17 13:24 | PDOC.PN ---
- Subjective Encounter Start Date: 05/17/18 Encounter Start Time: 13:23 Subjective: remains intubated .sedation being titrated down -: no overnight events.Dialysis done in room -: no family at bedside today.discussed w RN - Objective Resuscitation Status - Order Detail: 05/07/18 14:14 Resuscitation Status Routine Resuscitation Status: FULL: Full Resuscitation MAR Reviewed: Yes Vital Signs & Weight: Vital Signs (12 hours) Temp Pulse Resp BP Pulse Ox 05/17/18 12:38 95 143/83 H 05/17/18 12:36 118 H 17 99 05/17/18 12:00 98.7 F 18 05/17/18 10:19 116 H 146/93 H 05/17/18 10:00 99.1 F 17 05/17/18 08:00 16 05/17/18 07:00 98.3 F 05/17/18 06:30 68 118/68 05/17/18 06:29 74 16 99 05/17/18 06:00 16 05/17/18 04:00 97.6 F 17 05/17/18 03:01 73 93/48 L 05/17/18 02:00 19 Weight Admit Weight 189 lb Weight 179 lb 14.355 oz Most Recent Monitor Data Heart Rate from ECG 110 NIBP 138/86 NIBP BP-Mean 103 Respiration from ECG 21 SpO2 100 I&O: 05/16/18 05/17/18 05/18/18 06:59 06:59 06:59 Intake Total 1584 2604 50 Output Total 0 0 0 Balance 1584 2604 50 Result Diagrams: 05/17/18 04:59 05/17/18 04:59 Additional Labs: Microbiology 05/13/18 08:40 Bronchial Washing Respiratory Culture - Final Presumptive Marisa albicans 05/13/18 08:40 Bronchial Washing Acid Fast Bacilli Smear - Final 05/07/18 08:51 Venous blood - Right Hand Blood Culture - Final NO GROWTH IN 5 DAYS 05/07/18 08:48 Venous blood - Left Hand Blood Culture - Final Coagulase Neg Staphylococcus 05/07/18 08:31 Nasopharyngeal swab Influenza Types A,B Direct EIA - Final Phys Exam - Physical Examination Constitutional: NAD intubated,restless HEENT: PERRLA, moist MMs, sclera anicteric, oral pharynx no lesions Neck: no nodes, no JVD, supple, full ROM Respiratory: no wheezing, no rales, no rhonchi Cardiovascular: RRR, no significant murmur Gastrointestinal: soft, non-tender, no distention, positive bowel sounds Musculoskeletal: no edema, pulses present Neurological: moves all 4 limbs Deviation from normal: sedated.does not follow commands Skin: no rash Dx/Plan (1) Acute respiratory failure with hypoxia Code(s): J96.01 - ACUTE RESPIRATORY FAILURE WITH HYPOXIA Status: Resolved Comment: vent support (2) ARACELI (acute kidney injury) Code(s): N17.9 - ACUTE KIDNEY FAILURE, UNSPECIFIED Status: Acute Comment: improving creatinine with gentle hydration (3) ACUTE PULMONARY HEMORRHAGE Status: Acute Comment: Unclear etiology .BAL Cx negative so far.path pending.Vasculitis work up negative so far. Off of OAC for almost 10-14 days. S/P Cytoxan. ON IV steroids (4) Thrombocytopenia Code(s): D69.6 - THROMBOCYTOPENIA, UNSPECIFIED Status: Acute Comment: monitor (5) Physical deconditioning Code(s): R53.81 - OTHER MALAISE Status: Acute (6) Afib Code(s): I48.91 - UNSPECIFIED ATRIAL FIBRILLATION Status: Chronic Qualifiers: Atrial fibrillation type: paroxysmal Qualified Code(s): I48.0 - Paroxysmal atrial fibrillation Comment: paroxysmal, stopped OAC recently due to bleeding. on Amiodarone . (7) HTN (hypertension) Code(s): I10 - ESSENTIAL (PRIMARY) HYPERTENSION Status: Chronic Qualifiers: Hypertension type: essential hypertension Qualified Code(s): I10 - Essential (primary) hypertension (8) Hypothyroidism Code(s): E03.9 - HYPOTHYROIDISM, UNSPECIFIED Status: Chronic Qualifiers: Hypothyroidism type: unspecified Qualified Code(s): E03.9 - Hypothyroidism , unspecified (9) Pacemaker Code(s): Z95.0 - PRESENCE OF CARDIAC PACEMAKER Status: Chronic Comment: due to sss - Plan respiratory therapy, incentive spirometry, DVT proph w/SCDs remains Vent dependent.supportive care -: cont Steroids.s/p Cytoxan for Pulm hemmorhage,suspecting vasulitis -: Hemodialysis w monitoring of renal Fx. -: Monitor Platelets.may need transfusion.s/p PRBC transfusion for blood loss -: anemia from Pulm hemorrhage. * .change pepcid to protonix * on Po amiodarone for a-fib w RVR. * guarded prognosis * am labs Review of Systems - Review of Systems Other: can not be obtained due to intubated and sedated state - Medications/Allergies Allergies/Adverse Reactions: Allergies Allergy/AdvReac Type Severity Reaction Status Date / Time clindamycin Allergy Verified 05/07/18 13:37 ezetimibe Allergy Verified 05/07/18 13:37 [From Vytorin 10-10] losartan Allergy Verified 05/07/18 13:37 Penicillins Allergy Verified 05/07/18 13:37 simvastatin Allergy Verified 05/07/18 13:37 [From Vytorin 10-10] Sulfa (Sulfonamide Allergy Verified 05/07/18 13:37 Antibiotics) Medications: Current Medications Acetaminophen (Tylenol) 650 mg PO Q4H PRN PRN Reason: Headache/Fever/Mild Pain (1-3) Last Admin: 05/16/18 05:17 Dose: 650 mg Albuterol/Ipratropium (Duoneb) 3 ml NEB [id number] ARMANI Last Admin: 05/17/18 12:36 Dose: 3 ml Amiodarone HCl (Cordarone) 400 mg PO TID [facility] Calcitriol (Rocaltrol) 0.25 mcg PO DAILY [facility] Last Admin: 05/17/18 09:39 Dose: 0.25 mcg Guaifenesin/Dextromethorphan (Robitussin Dm) 15 ml PO Q4H PRN PRN Reason: Cough Cefepime HCl 1 gm/ Sodium (Chloride) 100 mls @ 200 mls/hr IVPB 2000 [facility] Last Admin: 05/16/18 20:27 Dose: 100 mls Fentanyl Citrate 2,000 mcg/ (Sodium Chloride) 100 mls @ 0 mls/hr IV INF ARMANI; Protocol Stop: 06/12/18 09:01 Last Admin: 05/17/18 09:57 Dose: 100 mls Fentanyl Citrate (Fentanyl Bolus) 250 mls @ 0 mls/hr IVPB PRN PRN PRN Reason: Breakthrough pain/agitation Stop: 06/12/18 09:01 Last Admin: 05/13/18 10:39 Dose: 250 mls Levothyroxine Sodium (Synthroid) 200 mcg PO 0600 [facility] Last Admin: 05/17/18 05:07 Dose: 200 mcg Lorazepam (Ativan) 2 mg SLOW IVP Q1H PRN PRN Reason: Breakthrough agitation Stop: 06/12/18 09:01 Last Admin: 05/17/18 11:02 Dose: 2 mg Miscellaneous Medication (Ventilator Sedation Protocol) 1 each FS ONE [facility] Stop: 06/12/18 09:01 Morphine Sulfate (Morphine) 2 mg SLOW IVP Q1H PRN PRN Reason: BREAKTHROUGH PAIN/Agitation Stop: 06/12/18 09:01 Last Admin: 05/17/18 01:28 Dose: 2 mg Ondansetron HCl (Zofran) 4 mg IVP Q4H PRN PRN Reason: Nausea/Vomiting Last Admin: 05/11/18 12:03 Dose: 4 mg Ondansetron HCl (Zofran Odt) 4 mg PO Q4H PRN PRN Reason: Nausea/Vomiting Last Admin: 05/09/18 12:33 Dose: 4 mg Pantoprazole Sodium (Protonix) 40 mg IVP DAILY [facility] Last Admin: 05/17/18 10:03 Dose: 40 mg Fluticasone Propionate Nasal [place] 16 Gm Bottle 0 each EA NARE DAILY [facility] Last Admin: 05/17/18 09:17 Dose: Not Given Prednisone (Prednisone) 40 mg PO QAM-[facility] Propofol (Diprivan) 1,000 mg IV INF PRN; Protocol PRN Reason: TO ACHIEVE GOAL RASS Stop: 06/12/18 09:01 Last Admin: 05/17/18 09:39 Dose: 1,000 mg Propofol (Diprivan Bolus) 20 mg IV Q5MIN PRN PRN Reason: BREAKTHROUGH AGITATION Stop: 06/12/18 09:01 Senna/Docusate Sodium (Senokot S) 2 tab PO BIDPRN PRN PRN Reason: Constipation Tamsulosin HCl (Flomax) 0.4 mg PO DAILY [facility] Last Admin: 05/17/18 09:40 Dose: 0.4 mg Terazosin HCl (Hytrin) 1 mg PO DAILY [facility] Last Admin: 05/17/18 09:39 Dose: 1 mg
[2018-05-17] MEDS: Cefepime 1 GM in Sodium Chloride 0.9% 100 ML IVPB SCH (20:40)
[2018-05-18] MEDS: Propofol 1,000 MG/100 ML VIAL IV PRN (05:25)
[2018-05-18] MEDS: Levothyroxine Sodium 100 MCG TAB PO SCH (05:26)
[2018-05-18 05:41] LABS: #Neutrophils 1.3 thou/uL (1.40-6.50); %Eosinophils 0.8 % (0.0-10.0); %Lymphocytes 2.7 % (21.0-51.0); %Monocytes 2.5 % (0.0-10.0); Hemoglobin 8.5 g/dL (14.0-18.0); Mean Corpuscular HGB CONC 32.6 g/dL (32.0-36.0); Mean Corpuscular Hemoglobin 29.8 pg (27.0-31.0); Mean Corpuscular Volume 91.2 fL (78.0-98.0); Mean Platelet Volume 11.4 fL (7.4-10.4); Platelet Count 30 thou/uL (130-400); RBC Distribution Width 13.3 % (11.5-14.5); Red Blood Cell (RBC) Count 2.87 mill/uL (4.70-6.10); White Blood Cell (WBC) Count 1.3 thou/uL (4.8-10.8)
[2018-05-18 06:47] LABS: ALT (SGPT) 33 U/L (8-55); AST (SGOT) 23 U/L (5-34); Albumin 3.4 g/dL (3.4-4.8); Alkaline Phosphatase 49 U/L (40-150); Anion Gap 18 mmol/L (10-20); BUN (Urea Nitrogen) 69 mg/dL (8.4-25.7); Bilirubin, Total 1.4 mg/dL (0.2-1.2); Calc. Creatinine Clearance 0 mL/min (70-130); Calcium 7.9 mg/dL (7.8-10.44); Carbon Dioxide 25 mmol/L (23-31); Chloride 95 mmol/L (98-107); Estimated GFR-MDRD 18; Globulin 1.8 g/dL (2.4-3.5); Glucose 89 mg/dL (83-110); Potassium 4.1 mmol/L (3.5-5.1); Protein, Total 5.2 g/dL (5.8-8.1); Sodium 134 mmol/L (136-145)
[2018-05-18 06:53] LABS: Actual Bicarbonate (HCO3a) 23.7 mEq/L (22-28); Base Excess (BEa) -0.7 mEq/L (-2.0 to +3.0); Calcium, Ionized 1.03 mmol/L (1.12-1.30); Carboxyhemoglobin (COHb) 1.3 gm% (0.0-3.0); Hemoglobin (Hb) 9.2 g/dL (14.0-18.0); O2 Tension (PaO2) 74.6 mmHg (> 60.0); Potassium - ABG Lab 4.08 mmol/L (3.70-5.30); pH, Arterial 7.41 (7.35-7.45)
[2018-05-18 06:54] LABS: Puncture Site RRA
--- NOTE | 2018-05-18 07:12 | RAD ---
CHEST ONE VIEW: INDICATIONS: Intubation. COMPARISON: 05/16/2018 FINDINGS/IMPRESSION: Cardiomegaly, pulmonary vascular congestion, central edema pattern, and bilateral pleural effusions a re stable. Pacemaker, endotracheal tube, and gastric catheter appear unchanged. No definite pneumot horax is evident. POS: BH
[2018-05-18] MEDS ORDERED: DC Sedation Protocol FS ONE (07:51)
--- NOTE | 2018-05-18 08:17 | PRG ---
DATE OF SERVICE: 05/18/2018 This is a 35 minutes of critical care time. SUBJECTIVE: Mr. Degroot remains intubated on mechanical ventilation. He will wake up and follow commands. OBJECTIVE: VITAL SIGNS: On exam, his temperature is 98.6, pulse 83, blood pressure 131/63, O2 saturation 100%. A 24-hour intake 996, output 0-I do not think the dialysis team pulled any fluid yesterday. HEENT: Pupils are reactive. Sclerae icteric. Oropharynx clear. NECK: No JVD. LUNGS: Coarse breath sounds bilaterally, but overall significantly improved from previous. CARDIAC: S1-S2 regular with 2/6 systolic murmur. ABDOMEN: Soft, nontender, and nondistended. EXTREMITIES: No clubbing, cyanosis, or edema. LABORATORY DATA: White blood cell count 1.3, hemoglobin 8.5, hematocrit 26.2, and platelet count 30. pH 7.41, pCO2 of 38, pO2 of 74 on CPAP, pressure support 5. Sodium 134, potassium 4.1, chloride 95, CO2 of 25, BUN 69, creatinine 3.2, glucose 89. ASSESSMENT: 1. Acute respiratory failure requiring mechanical ventilation. 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 C ANCA values are still pending, but the rest of the vasculitis workup parameters were negative. 2. Acute renal failure-etiology unknown. 3. Diastolic heart dysfunction. PLAN: 1. The patient met criteria for extubation based on the fact that he has been on spontaneous breathing for about 24 hours and his frequency to tidal volume ratio is adequate. 2. We will have to be careful with him given that his counts have started to bottom out. Right now, he is not showing any sign of bleeding, but if he did, he would require platelet transfusion. 3. Continue hemodialysis. 4. His antibiotic coverage at the current time includes cefepime. If we see any decompensation, then I will have a low threshold to add antifungal therapy. I spoke with the patient's yesterday concerning his condition and care. Job ID: [id number]
--- NOTE | 2018-05-18 09:48 | PRG ---
DATE OF SERVICE: 05/18/2018 SUBJECTIVE: Mr. Degroot is an 82-year-old white male, who is being followed by the Renal Service for his acute kidney injury/chronic renal failure. He developed acute renal failure and became aneuric. He is now currently on dialysis. The vasculitis being worked up for a possible pulmonary renal syndrome with this patient. He received Cytoxan and Solu-Medrol. He is currently extubated. Chest x-ray still showed increased lung markings/pulmonary edema. He received dialysis with significant fluid removal yesterday. No new complaints today. He is a little confused. OBJECTIVE: VITAL SIGNS: Blood pressure is 133/54, heart rate 115, respiratory rate 23, and pulse ox 96%. GENERAL: Awake, supine, comfortable, not in overt distress. SKIN: Adequate turgor. HEENT: He has a slightly pale conjunctivae. Anicteric sclerae. NECK: No neck mass. No carotid bruits. No JVD. CHEST: No deformities. LUNGS: Clear breath sounds. HEART: Normal sinus rhythm. No murmurs. No gallops. No rubs. ABDOMEN: Globular, soft, and nontender. No masses. EXTREMITIES: No edema. No deformities. MEDICATIONS: Medications of May 18, 2018, reviewed. LABORATORY DATA: Laboratories of May 18, 2018; white count 1.3, hemoglobin 8.5, and platelet count is 30,000. Sodium 134, potassium 4.1, chloride 95, carbon dioxide 25, BUN 69, creatinine 3.28, calcium 7.9, AST 23, ALT 33, and albumin 3.4. ASSESSMENT AND PLAN: 1. 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 Currently, on maintenance of prednisone. We still awaiting for the ANCA. For the moment, continue current management. 2. Leukopenia, thrombocytopenia - this probably reflection of the Cytoxan use. He is off Cytoxan. If needed, we will start this patient on a Neupogen as well as possible platelet transfusion. 3. Acute kidney injury - unclear etiology, acute tubular necrosis versus an acute glomerulonephritis. I had a long discussion with the daughter and I have not excluded in doing a renal biopsy once the patient is a bit more stable. 4. Acute respiratory failure, improving. The patient currently extubated. The feeling is that he may have had significant alveolar hemorrhage. Overall, prognosis remains guarded. Continue supportive care. Job ID: [id number]
[2018-05-18] MEDS: Pantoprazole 40 MG VIAL IVP SCH (09:52)
[2018-05-18] MEDS: Haloperidol Lactate 5 MG/ML VIAL IM PRN ×2 (09:52→19:25)
[2018-05-18] MEDS: Calcitriol 0.25 MCG CAP PO SCH (13:51)
[2018-05-18] MEDS: predniSONE 20 MG TAB PO SCH (13:51)
[2018-05-18] MEDS: Tamsulosin HCl 0.4 MG CAP PO SCH (13:52)
[2018-05-18] MEDS: Amiodarone 200 MG TAB PO SCH ×3 (13:52→20:15)
[2018-05-18] MEDS: Terazosin HCl 1 MG CAP PO SCH (13:54)
[2018-05-18 14:20] LABS: Cytoplasmic (C-ANCA) <1:20 titer (Neg:<1:20); Myeloperoxidase AutoAbs <9.0 U/mL (0.0-9.0); Perinuclear (P-ANCA) <1:20 titer (Neg:<1:20); Proteinase-3 AutoAbs Less than 3.5 U/mL (0.0-3.5)
--- NOTE | 2018-05-18 16:31 | PDOC.PN ---
- Subjective Encounter Start Date: 05/18/18 Encounter Start Time: 16:30 Subjective: extubated this morning & awake and cursing -: DIL at bedside & all Qs answered.no new events overnight - Objective Resuscitation Status - Order Detail: 05/07/18 14:14 Resuscitation Status Routine Resuscitation Status: FULL: Full Resuscitation MAR Reviewed: Yes Vital Signs & Weight: Vital Signs (12 hours) Temp Pulse Resp Pulse Ox 05/18/18 13:34 114 H 26 H 95 05/18/18 12:00 98.3 F 96 05/18/18 08:00 98.8 F 05/18/18 07:51 115 H 20 94 L 05/18/18 07:35 99 05/18/18 06:49 88 05/18/18 05:00 98.6 F Weight Admit Weight 189 lb Weight 2.967 oz Most Recent Monitor Data Heart Rate from ECG 76 NIBP 122/62 NIBP BP-Mean 82 Respiration from ECG 19 SpO2 100 I&O: 05/17/18 05/18/18 05/19/18 06:59 06:59 06:59 Intake Total 2604 996 195 Output Total 0 0 0 Balance 2604 996 195 Result Diagrams: 05/18/18 04:45 05/18/18 04:45 Additional Labs: Microbiology 05/13/18 08:40 Bronchial Washing Respiratory Culture - Final Presumptive Marisa albicans 05/13/18 08:40 Bronchial Washing Acid Fast Bacilli Smear - Final 05/07/18 08:51 Venous blood - Right Hand Blood Culture - Final NO GROWTH IN 5 DAYS 05/07/18 08:48 Venous blood - Left Hand Blood Culture - Final Coagulase Neg Staphylococcus 05/07/18 08:31 Nasopharyngeal swab Influenza Types A,B Direct EIA - Final Laboratory Tests 05/12/18 05/13/18 05/14/18 05:33 04:21 06:04 Hgb 6.5 L 8.2 L 6.6 L 05/15/18 05/16/18 05/17/18 05:50 03:41 04:59 Hgb 9.1 L 9.5 L 8.2 L 05/18/18 04:45 Hgb 8.5 L Phys Exam - Physical Examination Constitutional: NAD awake and fidgety,agitated HEENT: PERRLA, moist MMs, sclera anicteric, 2+ tonsils oral candidiasis Neck: no nodes, no JVD, supple, full ROM Respiratory: no wheezing, no rales, no rhonchi, clear to auscultation bilateral Cardiovascular: RRR, no significant murmur Gastrointestinal: soft, non-tender, no distention, positive bowel sounds Musculoskeletal: no edema, pulses present Neurological: non-focal, normal sensation, moves all 4 limbs Skin: no rash Dx/Plan (1) Acute respiratory failure with hypoxia Code(s): J96.01 - ACUTE RESPIRATORY FAILURE WITH HYPOXIA Status: Resolved Comment: vent support (2) ARACELI (acute kidney injury) Code(s): N17.9 - ACUTE KIDNEY FAILURE, UNSPECIFIED Status: Acute Comment: improving creatinine with gentle hydration (3) ACUTE PULMONARY HEMORRHAGE Status: Acute Comment: Unclear etiology .BAL Cx negative so far.path pending.Vasculitis work up negative so far. Off of OAC for almost 10-14 days. S/P Cytoxan. ON IV steroids (4) Thrombocytopenia Code(s): D69.6 - THROMBOCYTOPENIA, UNSPECIFIED Status: Acute Comment: monitor (5) Physical deconditioning Code(s): R53.81 - OTHER MALAISE Status: Acute (6) Afib Code(s): I48.91 - UNSPECIFIED ATRIAL FIBRILLATION Status: Chronic Qualifiers: Atrial fibrillation type: paroxysmal Qualified Code(s): I48.0 - Paroxysmal atrial fibrillation Comment: paroxysmal, stopped OAC recently due to bleeding. on Amiodarone . (7) HTN (hypertension) Code(s): I10 - ESSENTIAL (PRIMARY) HYPERTENSION Status: Chronic Qualifiers: Hypertension type: essential hypertension Qualified Code(s): I10 - Essential (primary) hypertension (8) Hypothyroidism Code(s): E03.9 - HYPOTHYROIDISM, UNSPECIFIED Status: Chronic Qualifiers: Hypothyroidism type: unspecified Qualified Code(s): E03.9 - Hypothyroidism , unspecified (9) Pacemaker Code(s): Z95.0 - PRESENCE OF CARDIAC PACEMAKER Status: Chronic Comment: due to sss - Plan PT/OT, DVT proph w/SCDs cont prednisone.p-ANCA pending.BAL Bx w inflammation only -: add Nystatin SSW for oral candidiasis. -: supportive care. -: OT,PT.DC planning w OP F/U -: may need renal Bx in near future. * .HD per nephrology * am labs * monitor platelets. Transfuse if overt bleed or drop in H/H * guarded prognosis * Review of Systems - Review of Systems Other: can not be obtained due to delirium - Medications/Allergies Allergies/Adverse Reactions: Allergies Allergy/AdvReac Type Severity Reaction Status Date / Time clindamycin Allergy Verified 05/07/18 13:37 ezetimibe Allergy Verified 05/07/18 13:37 [From Vytorin 10-10] losartan Allergy Verified 05/07/18 13:37 Penicillins Allergy Verified 05/07/18 13:37 simvastatin Allergy Verified 05/07/18 13:37 [From Vytorin 10-10] Sulfa (Sulfonamide Allergy Verified 05/07/18 13:37 Antibiotics) Medications: Current Medications Acetaminophen (Tylenol) 650 mg PO Q4H PRN PRN Reason: Headache/Fever/Mild Pain (1-3) Last Admin: 05/16/18 05:17 Dose: 650 mg Albuterol/Ipratropium (Duoneb) 3 ml NEB [id number] [facility] Last Admin: 05/18/18 13:34 Dose: 3 ml Amiodarone HCl (Cordarone) 400 mg PO TID [facility] Last Admin: 05/18/18 14:14 Dose: Not Given Calcitriol (Rocaltrol) 0.25 mcg PO DAILY [facility] Last Admin: 05/18/18 13:51 Dose: 0.25 mcg Guaifenesin/Dextromethorphan (Robitussin Dm) 15 ml PO Q4H PRN PRN Reason: Cough Haloperidol Lactate (Haldol) 5 mg IM Q4H PRN PRN Reason: Agitation Last Admin: 05/18/18 09:52 Dose: 5 mg Cefepime HCl 1 gm/ Sodium (Chloride) 100 mls @ 200 mls/hr IVPB 2000 [facility] Last Admin: 05/17/18 20:40 Dose: 100 mls Levothyroxine Sodium (Synthroid) 200 mcg PO 0600 [facility] Last Admin: 05/18/18 05:26 Dose: 200 mcg Miscellaneous Medication (Ventilator Sedation Protocol) 1 each FS ONE [facility] Stop: 06/12/18 09:01 Nystatin (Mycostatin) 500,000 units SSW QID [facility] Ondansetron HCl (Zofran) 4 mg IVP Q4H PRN PRN Reason: Nausea/Vomiting Last Admin: 05/11/18 12:03 Dose: 4 mg Ondansetron HCl (Zofran Odt) 4 mg PO Q4H PRN PRN Reason: Nausea/Vomiting Last Admin: 05/09/18 12:33 Dose: 4 mg Pantoprazole Sodium (Protonix) 40 mg IVP DAILY [facility] Last Admin: 05/18/18 09:52 Dose: 40 mg Fluticasone Propionate Nasal [place] 16 Gm Bottle 0 each EA NARE DAILY [facility] Last Admin: 05/17/18 09:17 Dose: Not Given Prednisone (Prednisone) 40 mg PO QAM-WM [facility] Last Admin: 05/18/18 13:51 Dose: 40 mg Senna/Docusate Sodium (Senokot S) 2 tab PO BIDPRN PRN PRN Reason: Constipation Sodium Chloride (Flush - Normal Saline) 10 ml IVF Q12HR [facility] Last Admin: 05/18/18 13:52 Dose: 10 ml Sodium Chloride (Flush - Normal Saline) 10 ml IVF PRN PRN PRN Reason: Saline Flush Tamsulosin HCl (Flomax) 0.4 mg PO DAILY [facility] Last Admin: 05/18/18 13:52 Dose: 0.4 mg Terazosin HCl (Hytrin) 1 mg PO DAILY [facility] Last Admin: 05/18/18 13:54 Dose: 1 mg
[2018-05-18] MEDS: Nystatin 500,000 UNITS/5 ML UDCUP SSW SCH ×2 (18:30→20:15)
[2018-05-18] MEDS: Cefepime 1 GM in Sodium Chloride 0.9% 100 ML IVPB SCH (20:15)
[2018-05-19] MEDS: Fluticasone Propionate Nasal Spray 16 gm Bottle EA NARE SCH ×2 (01:08→10:15)
[2018-05-19 04:46] LABS: Hemoglobin 8.5 g/dL (14.0-18.0); Mean Corpuscular HGB CONC 33.6 g/dL (32.0-36.0); Mean Corpuscular Hemoglobin 30.4 pg (27.0-31.0); Mean Corpuscular Volume 90.5 fL (78.0-98.0); Mean Platelet Volume 11.4 fL (7.4-10.4); Platelet Count 26 thou/uL (130-400); RBC Distribution Width 13.5 % (11.5-14.5); Red Blood Cell (RBC) Count 2.79 mill/uL (4.70-6.10); White Blood Cell (WBC) Count 0.1 thou/uL (4.8-10.8)
[2018-05-19 05:05] LABS: Anion Gap 21 mmol/L (10-20); BUN (Urea Nitrogen) 100 mg/dL (8.4-25.7); Calc. Creatinine Clearance 0 mL/min (70-130); Calcium 7.9 mg/dL (7.8-10.44); Carbon Dioxide 22 mmol/L (23-31); Chloride 97 mmol/L (98-107); Estimated GFR-MDRD 12; Glucose 78 mg/dL (83-110); Potassium 4.3 mmol/L (3.5-5.1); Sodium 136 mmol/L (136-145)
[2018-05-19] MEDS: Levothyroxine Sodium 100 MCG TAB PO SCH (06:15)
--- NOTE | 2018-05-19 08:16 | PRG ---
DATE OF SERVICE: 05/19/2018 TIME SPENT: 35 minutes critical care time. SUBJECTIVE: The patient remains in the CCU. He was successfully extubated yesterday. OBJECTIVE: VITAL SIGNS: On exam, his temperature is 98.5, pulse 108, blood pressure 137/80, 24-hour intake 996, output zero. HEENT: Unremarkable. NECK: No JVD. LUNGS: Coarse breath sounds bilaterally. CARDIAC: S1, S2. Slightly tachycardic. ABDOMEN: Soft, nontender. EXTREMITIES: No edema. LABORATORY DATA: White blood cell count is down to 0.1, hematocrit 25.2, and platelet count 26. Sodium 136, potassium 4.3, chloride 97, CO2 22, BUN 100, creatinine 4.6, glucose 78. His chest x-ray shows progression of the bilateral infiltrates compared to the day before, some of this may just be technique of the x-ray. ASSESSMENT: 1. 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 2. Status post acute respiratory failure requiring mechanical ventilation. 3. Development of neutropenia, leukopenia, and thrombocytopenia from the use of Cytoxan. PLAN: 1. I will go ahead and start him on empiric vancomycin in addition to the cefepime he is already on. I will add micafungin as I am concerned about him developing disseminated infection. 2. Repeat cultures for surveillance purposes. 3. Keep him in the ICU. 4. Harts neutropenic precautions. 5. Awaiting speech clearance so the patient can eat. 6. In my opinion, he probably needs dialysis today with fluid removal. Job ID: [id number]
--- NOTE | 2018-05-19 08:20 | RAD ---
FRONTAL RADIOGRAPH CHEST: 05/19/2018 HISTORY: Ventilated patient. COMPARISON: 05/18/2018 FINDINGS: The endotracheal tube and nasogastric tube have been removed since the prior exam. There is extensiv e and persistent interstitial and alveolar opacity involving the bilateral mid lung zones, the perihi lar regions, and the lung bases. Small bilateral pleural effusions are present. Stable dual-lead tr ansvenous pacing device. IMPRESSION: Extensive interstitial and alveolar opacity with bilateral pleural effusion suggests stable pulmonary edema. Infection or aspiration cannot be excluded. Followup to resolution advised. POS: DENY
--- NOTE | 2018-05-19 09:31 | PRG ---
DATE OF SERVICE: 05/19/2018 SUBJECTIVE: Mr. Degroot is an 82-year-old white male, who was admitted for shortness of breath. During this hospitalization, he developed acute respiratory failure/acute kidney injury. He is currently intubated on dialysis. Consideration for pulmonary renal syndrome was made. He did receive a 3-day course of Cytoxan and Solu-Medrol. He was extubated yesterday. He is in mild respiratory distress. For this reason, we will repeat hemodialysis today with this patient. OBJECTIVE: VITAL SIGNS: Blood pressure is 137/80, heart rate 108, respiratory rate 23, O2 saturation is ranging from 85% to 90%. GENERAL: The patient is awake, in mild respiratory distress. SKIN: Adequate turgor. HEENT: He has a pale conjunctivae. Anicteric sclerae. No neck mass. No carotid bruits. No JVD. CHEST: No deformities. LUNGS: Harsh breath sounds. HEART: Normal sinus rhythm. No murmurs, gallops, or rubs. ABDOMEN: Globular, soft, nontender, no masses. EXTREMITIES: No edema, no deformities. MEDICATIONS: Medications of May 19, 2018, was reviewed. LABORATORY DATA: Laboratories of May 19, 2018; white count 0.1, hemoglobin 8.5, platelet count 26,000. Sodium 136, potassium 4.3, chloride 97, carbon dioxide 22, BUN 100, creatinine 4.69, glucose 78, calcium 7.9. IMAGING: Chest x-ray of May 19, 2018, shows extensive interstitial alveolar opacity with bilateral pleural effusion. ASSESSMENT AND PLAN: 1. Acute kidney injury/chronic renal failure-we will do emergent hemodialysis. We will do a 4-hour hemodialysis today and max out fluid removal as tolerated. 2. Thrombocytopenia/leukopenia-this is most likely drug-induced from the Cytoxan. 3. We will consult Hematology. This patient most likely will be started on Neupogen. 4. Anemia. Continue supportive care. 5. 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 However, all serologies have been negative. ANCA level was said to be negative. In addition, the anti-GBM as well as the JD were negative. As previously mentioned, the exact etiology of the renal dysfunction is unclear. Although an acute glomerulonephritis was suspected, but this has not been proven. The possibility of renal biopsy remains with this patient. As previously mentioned, we are considering a renal biopsy once the patient is more hemodynamically stable. 6. Acute respiratory failure. Continue supportive care. Etiology is unclear. Previously, patient has had history of alveolar hemorrhage from a previous bronchoscopy done at [facility]. 7. Overall prognosis remains guarded with this patient. 8. The patient is placed on isolation due to the leukopenia. Job ID: [id number]
[2018-05-19] MEDS ORDERED: Vancomycin HCl 1.5 GM in Sodium Chloride 0.9% 250 ML 300 ML IV SCH (09:45)
[2018-05-19] MEDS ORDERED: Vancomycin HCl 750 MG in Sodium Chloride 0.9% 250 ML 250 ML IVPB SCH (09:45)
[2018-05-19] MEDS ORDERED: Vancomycin HCl 500 MG in Sodium Chloride 0.9% 100 ML IVPB SCH (09:45)
[2018-05-19] MEDS ORDERED: Vancomycin HCl 1 GM in Premix Bag 1 BAG IVPB SCH (09:45)
[2018-05-19] MEDS ORDERED: Vancomycin Sliding Scale 1 EACH FS ONE (09:45)
[2018-05-19] MEDS ORDERED: Vancomycin HCl 1.25 GM in Sodium Chloride 0.9% 250 ML 250 ML IVPB SCH (09:45)
[2018-05-19] MEDS ORDERED: HOLD VANCOMYCIN FOR LEVEL >20 FS SCH (09:45)
[2018-05-19] MEDS: Terazosin HCl 1 MG CAP PO SCH (10:14)
[2018-05-19] MEDS: Tamsulosin HCl 0.4 MG CAP PO SCH (10:15)
[2018-05-19] MEDS: Calcitriol 0.25 MCG CAP PO SCH (10:15)
[2018-05-19] MEDS: Amiodarone 200 MG TAB PO SCH ×3 (10:15→20:36)
[2018-05-19] MEDS: predniSONE 20 MG TAB PO SCH (10:15)
[2018-05-19] MEDS: Pantoprazole 40 MG VIAL IVP SCH (10:17)
[2018-05-19] MEDS: Haloperidol Lactate 5 MG/ML VIAL IM PRN (12:25)
[2018-05-19] MEDS ORDERED: Albumin 25% 25 GM/100 ML BOT IVPB PRN (12:43)
[2018-05-19] MEDS: Micafungin 100 MG in Sodium Chloride 0.9% 100 ML IVPB SCH (13:27)
--- NOTE | 2018-05-19 13:56 | CON ---
DATE OF CONSULTATION: REASON FOR CONSULT: Pancytopenia from Cytoxan. HISTORY OF PRESENT ILLNESS: Mr. Degroot is an 82-year-old gentleman, who is being treated for acute respiratory failure and acute kidney injury. 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 He received a 3-day course of Cytoxan and Solu-Medrol approximately 6 days ago. Over the course of the last few days, his white blood cells and platelets have continued to drop and are currently at 0.1 and 26,000. He remains in the ICU and is on CPAP. He is on dialysis daily. We are asked to assist with treatment of his pancytopenia. PAST MEDICAL PROBLEMS: Medical history; 1. Atrial fibrillation. 2. Respiratory failure. 3. BPH. 4. Chronic kidney disease. 5. Diastolic dysfunction. 6. Hypothyroidism. 7. Sick sinus syndrome. PAST SURGICAL HISTORY: Pacemaker placement, tonsillectomy, thoracentesis, back surgery. ALLERGIES: TO CLINDAMYCIN, EZETIMIBE, LOSARTAN, PENICILLIN, SIMVASTATIN, AND SULFA. CURRENT MEDICATIONS: 1. Cordarone 400 mg t.i.d. 2. Calcitriol 0.25 mcg p.o. daily. 3. Cefepime daily. 4. Synthroid 200 mcg daily. 5. Micafungin daily. 6. Protonix daily. 7. Prednisone 40 mg daily. 8. Flomax daily. 9. Hytrin daily. 10. Vancomycin. FAMILY HISTORY: Noncontributory. SOCIAL HISTORY: Has one daughter at bedside. REVIEW OF SYSTEMS: Unable to obtain secondary to CPAP. PHYSICAL EXAMINATION: VITAL SIGNS: Temperature is 97.9, pulse is 129, respiratory rate 42, BP is 144/83. He is 95% on BiPAP. GENERAL: Chronically ill-appearing male, in no acute distress. HEENT: Normocephalic, atraumatic. NECK: Supple. CV: Irregular rate and rhythm. He is tachycardic. LUNGS: Diminished throughout. Has CPAP on. ABDOMEN: Soft and nontender. Bowel sounds are positive. EXTREMITIES: No clubbing, cyanosis, or edema. SKIN: No rash. HEMATOLOGICAL: No petechiae or purpura. NEUROLOGICAL: Unable to assess. PERTINENT LABS AND X-RAYS: Current WBCs are 0.1, hemoglobin 8.5, hematocrit 25.2, platelet count is 26,000. Sodium 136, potassium 4.3, chloride 97, CO2 is 22, BUN is 100, creatinine 4.69, calcium 7.9, bilirubin is 1.4, AST is 23, ALT is 33, alkaline phosphatase is 49. Serum total protein 5.2, albumin 3.4, globulin 1.8. ASSESSMENT: 1. Vasculitis. 2. Pancytopenia secondary to Cytoxan. 3. Respiratory failure. DISCUSSION: The patient's neutropenia is secondary to Cytoxan chemotherapy. We will begin Neupogen 480 mcg daily. His hemoglobin will likely continue to drop as well as his platelets. There is no evidence of bleeding right now. We would hold platelet transfusion until the platelets dropped around 15,000. We will monitor his CBC daily and transfuse as needed. Thank you for the consult. Job ID: [id number]
[2018-05-19] MEDS: Nystatin 500,000 UNITS/5 ML UDCUP SSW SCH ×4 (14:26→20:43)
--- NOTE | 2018-05-19 15:26 | PDOC.PN ---
- Subjective Encounter Start Date: 05/19/18 Encounter Start Time: 15:24 Subjective: extubated yesterday but remains delirious -: RN reported worsening this morning requiring Bipap - Objective Resuscitation Status - Order Detail: 05/07/18 14:14 Resuscitation Status Routine Resuscitation Status: FULL: Full Resuscitation MAR Reviewed: Yes Vital Signs & Weight: Vital Signs (12 hours) Temp Pulse Resp Pulse Ox 05/19/18 14:24 87 24 H 100 05/19/18 14:23 90 27 H 100 05/19/18 10:59 129 H 42 H 95 05/19/18 08:00 94 L 05/19/18 07:30 99 05/19/18 07:29 110 H 17 99 05/19/18 07:00 97.9 F 05/19/18 04:00 93 L Weight Admit Weight 189 lb Weight 2.907 oz Most Recent Monitor Data Heart Rate from ECG 108 NIBP 144/83 NIBP BP-Mean 103 Respiration from ECG 29 SpO2 96 I&O: 05/18/18 05/19/18 05/20/18 06:59 06:59 06:59 Intake Total 996 295 0 Output Total 0 0 0 Balance 996 295 0 Result Diagrams: 05/19/18 04:30 05/19/18 04:30 Additional Labs: Microbiology 05/13/18 08:40 Bronchial Washing Respiratory Culture - Final Presumptive Marisa albicans 05/13/18 08:40 Bronchial Washing Acid Fast Bacilli Smear - Final 05/07/18 08:51 Venous blood - Right Hand Blood Culture - Final NO GROWTH IN 5 DAYS 05/07/18 08:48 Venous blood - Left Hand Blood Culture - Final Coagulase Neg Staphylococcus 05/07/18 08:31 Nasopharyngeal swab Influenza Types A,B Direct EIA - Final Laboratory Tests 05/13/18 05/13/18 05/13/18 09:43 09:43 09:43 Anti-Proteinase 3 Less than 3.5 Atypical p-ANCA <1:20 Anti-Myeloperoxidase <9.0 ANCA <1:20 ANCA Pattern <1:20 Anti-ds DNA IgG Ab 0.8 Glomerular Base Memb Ab Less than 1.9 Phys Exam - Physical Examination awake but but not alert HEENT: moist MMs, sclera anicteric Neck: no JVD Respiratory: no wheezing, no rales coarse breath sounds b/l Cardiovascular: RRR, no significant murmur Gastrointestinal: soft, non-tender, no distention, positive bowel sounds Musculoskeletal: no edema, pulses present Neurological: non-focal, normal sensation, moves all 4 limbs Dx/Plan (1) Pancytopenia Code(s): D61.818 - OTHER PANCYTOPENIA Status: Acute Comment: due to cytoxan.started on vancomycin in addition to Cefepime.new Cx obtained.Neutropenic precautions started (2) Acute respiratory failure with hypoxia Code(s): J96.01 - ACUTE RESPIRATORY FAILURE WITH HYPOXIA Status: Resolved Comment: vent support (3) ARACELI (acute kidney injury) Code(s): N17.9 - ACUTE KIDNEY FAILURE, UNSPECIFIED Status: Acute Comment: improving creatinine with gentle hydration (4) ACUTE PULMONARY HEMORRHAGE Status: Acute Comment: Unclear etiology .BAL Cx negative so far.path pending.Vasculitis work up negative so far. Off of OAC for almost 10-14 days. S/P Cytoxan. ON IV steroids (5) Thrombocytopenia Code(s): D69.6 - THROMBOCYTOPENIA, UNSPECIFIED Status: Acute Comment: monitor (6) Physical deconditioning Code(s): R53.81 - OTHER MALAISE Status: Acute (7) Afib Code(s): I48.91 - UNSPECIFIED ATRIAL FIBRILLATION Status: Chronic Qualifiers: Atrial fibrillation type: paroxysmal Qualified Code(s): I48.0 - Paroxysmal atrial fibrillation Comment: paroxysmal, stopped OAC recently due to bleeding. on Amiodarone . (8) HTN (hypertension) Code(s): I10 - ESSENTIAL (PRIMARY) HYPERTENSION Status: Chronic Qualifiers: Hypertension type: essential hypertension Qualified Code(s): I10 - Essential (primary) hypertension (9) Hypothyroidism Code(s): E03.9 - HYPOTHYROIDISM, UNSPECIFIED Status: Chronic Qualifiers: Hypothyroidism type: unspecified Qualified Code(s): E03.9 - Hypothyroidism , unspecified (10) Pacemaker Code(s): Z95.0 - PRESENCE OF CARDIAC PACEMAKER Status: Chronic Comment: due to sss - Plan plan discussed w/ family, DVT proph w/SCDs guarded condition.high chances of requring re intubation.will discuss code -: status w family again. -: cont supportive care.NGT.bipap -: hemodialysis today. -: empiric ABx.Monitor CBC.hematology consulted * .anca negative as well * * am labs Review of Systems - Review of Systems Other: unable to obtain due to delirium - Medications/Allergies Allergies/Adverse Reactions: Allergies Allergy/AdvReac Type Severity Reaction Status Date / Time clindamycin Allergy Verified 05/07/18 13:37 ezetimibe Allergy Verified 05/07/18 13:37 [From Vytorin 10-10] losartan Allergy Verified 05/07/18 13:37 Penicillins Allergy Verified 05/07/18 13:37 simvastatin Allergy Verified 05/07/18 13:37 [From Vytorin 10-10] Sulfa (Sulfonamide Allergy Verified 05/07/18 13:37 Antibiotics) Medications: Current Medications Acetaminophen (Tylenol) 650 mg PO Q4H PRN PRN Reason: Headache/Fever/Mild Pain (1-3) Last Admin: 05/16/18 05:17 Dose: 650 mg Albumin Human (Albumin 25%) 25 gm IVPB ONE PRN PRN Reason: AFTER DIALYSIS Stop: 05/20/18 12:44 Albuterol/Ipratropium (Duoneb) 3 ml NEB [id number] [facility] Last Admin: 05/19/18 14:23 Dose: 3 ml Amiodarone HCl (Cordarone) 400 mg PO TID [facility] Last Admin: 05/19/18 14:33 Dose: 400 mg Calcitriol (Rocaltrol) 0.25 mcg PO DAILY [facility] Last Admin: 05/19/18 10:15 Dose: 0.25 mcg Guaifenesin/Dextromethorphan (Robitussin Dm) 15 ml PO Q4H PRN PRN Reason: Cough Haloperidol Lactate (Haldol) 5 mg IM Q4H PRN PRN Reason: Agitation Last Admin: 05/19/18 12:25 Dose: 5 mg Cefepime HCl 1 gm/ Sodium (Chloride) 100 mls @ 200 mls/hr IVPB 2000 [facility] Last Admin: 05/18/18 20:15 Dose: 100 mls Micafungin Sodium 100 mg/ (Sodium Chloride) 100 mls @ 100 mls/hr IVPB 1000 [facility] Last Admin: 05/19/18 13:27 Dose: 100 mls Vancomycin HCl 1.25 gm/ Sodium (Chloride) 250 mls @ 166.667 mls/hr IVPB WILLCALL ARMANI Vancomycin HCl 1 gm/ Device 200 mls @ 200 mls/hr IVPB WILLCALL [facility] Vancomycin HCl 750 mg/ Sodium (Chloride) 250 mls @ 250 mls/hr IVPB WILLCALL [facility] Vancomycin HCl 500 mg/ Sodium (Chloride) 100 mls @ 100 mls/hr IVPB WILLCALL [facility] Levothyroxine Sodium (Synthroid) 200 mcg PO 0600 [facility] Last Admin: 05/19/18 06:15 Dose: Not Given Miscellaneous Medication (Ventilator Sedation Protocol) 1 each FS ONE [facility] Stop: 06/12/18 09:01 Miscellaneous Medication (Pharmacy To Dose) 0 each IVPB PRN PRN PRN Reason: Pharmacy to Dose Hold Vancomycin For (Level >20) 0 each FS .AT DIALYSIS [facility] Nystatin (Mycostatin) 500,000 units SSW QID [facility] Last Admin: 05/19/18 14:27 Dose: Not Given Ondansetron HCl (Zofran) 4 mg IVP Q4H PRN PRN Reason: Nausea/Vomiting Last Admin: 05/11/18 12:03 Dose: 4 mg Ondansetron HCl (Zofran Odt) 4 mg PO Q4H PRN PRN Reason: Nausea/Vomiting Last Admin: 05/09/18 12:33 Dose: 4 mg Pantoprazole Sodium (Protonix) 40 mg PO DAILY [facility] Fluticasone Propionate Nasal [place] 16 Gm Bottle 0 each EA NARE DAILY [facility] Last Admin: 05/19/18 10:15 Dose: 1 each Prednisone (Prednisone) 40 mg PO QAM-WM [facility] Last Admin: 05/19/18 10:15 Dose: 40 mg Senna/Docusate Sodium (Senokot S) 2 tab PO BIDPRN PRN PRN Reason: Constipation Sodium Chloride (Flush - Normal Saline) 10 ml IVF Q12HR [facility] Last Admin: 05/19/18 14:36 Dose: 10 ml Sodium Chloride (Flush - Normal Saline) 10 ml IVF PRN PRN PRN Reason: Saline Flush Tamsulosin HCl (Flomax) 0.4 mg PO DAILY [facility] Last Admin: 05/19/18 10:15 Dose: 0.4 mg Tbo-Filgrastim (Granix) 480 mcg SC DAILY [facility] Terazosin HCl (Hytrin) 1 mg PO DAILY [facility] Last Admin: 05/19/18 10:14 Dose: 1 mg
[2018-05-19] MEDS: Cefepime 1 GM in Sodium Chloride 0.9% 100 ML IVPB SCH (20:29)
[2018-05-20] MEDS: Haloperidol Lactate 5 MG/ML VIAL IM PRN ×3 (02:29→22:20)
[2018-05-20 05:23] LABS: Hemoglobin 8.2 g/dL (14.0-18.0); Mean Corpuscular HGB CONC 32.3 g/dL (32.0-36.0); Mean Corpuscular Hemoglobin 29.3 pg (27.0-31.0); Mean Corpuscular Volume 90.6 fL (78.0-98.0); Mean Platelet Volume 12.5 fL (7.4-10.4); Platelet Count 23 thou/uL (130-400); RBC Distribution Width 13.6 % (11.5-14.5); Red Blood Cell (RBC) Count 2.78 mill/uL (4.70-6.10); White Blood Cell (WBC) Count Less than 0.1 thou/uL (4.8-10.8)
[2018-05-20 05:42] LABS: Anion Gap 21 mmol/L (10-20); BUN (Urea Nitrogen) 55 mg/dL (8.4-25.7); Calc. Creatinine Clearance 0 mL/min (70-130); Calcium 8.3 mg/dL (7.8-10.44); Carbon Dioxide 21 mmol/L (23-31); Chloride 100 mmol/L (98-107); Estimated GFR-MDRD 18; Potassium 4.2 mmol/L (3.5-5.1); Sodium 138 mmol/L (136-145)
[2018-05-20 05:43] LABS: Glucose 49 mg/dL (83-110)
[2018-05-20] MEDS ORDERED: Dextrose 50% Abboject 50 ML SYRINGE ONE (05:45)
[2018-05-20] MEDS: Levothyroxine Sodium 100 MCG TAB PO SCH (06:13)
--- NOTE | 2018-05-20 07:27 | RAD ---
CHEST ONE VIEW: INDICATIONS: Intubation. COMPARISON: 05/19/2018 FINDINGS: Diffuse parenchymal opacities and cardiomegaly are stable. There is a very thin, small gastric karyn ter that has been intervally placed and projects beyond the left hemidiaphragm. The dual-lead pacema ker is similar appearing. No pneumothorax is evident. Bilateral pleural effusions persist. IMPRESSION: Stable examination of the chest. Interval placement of a gastric catheter. POS: BH
--- NOTE | 2018-05-20 08:11 | PRG ---
DATE OF SERVICE: 05/20/2018 SUBJECTIVE: Mr. Degroot has continued to need BiPAP overnight. He has periods of agitation, which seem to respond reasonably well to Haldol. OBJECTIVE: VITAL SIGNS: His temperature is 98.6, pulse is 98, blood pressure 120/62, and O2 sat 100% on the BiPAP. Intake for 24 hours 470, output 2600. HEENT: Remarkable for dry oral mucous membranes. NECK: No JVD. LUNGS: Coarse breath sounds bilaterally. CARDIOVASCULAR: S1 and S2, tachycardic with 2/6 systolic murmur. ABDOMEN: Soft and nontender. EXTREMITIES: No clubbing, cyanosis, or edema. LABORATORY DATA: Sodium 138, potassium 4.2, chloride 100, CO2 of 21, BUN 55, creatinine 3.2, and glucose was 49. White blood cell count 0.1, hematocrit 25.2, and platelet count 23. His ANCA pattern finally resulted and it was negative. Chest x-ray shows minimal improvement. ASSESSMENT: 1. Acute hypoxic respiratory failure, requiring mechanical ventilation. 2. Neutropenic from Cytoxan. 3. 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 PLAN: 1. We will continue BiPAP. 2. I will try Precedex for sedation since he is periodically agitated. 3. Continue the micafungin, vancomycin, and cefepime since he is neutropenic. 4. Seligman enteral tube feeds. 5. I thought the patient's prognosis is quite poor. I will attempt to meet with the family later this morning and convey that to them. Job ID: [id number]
[2018-05-20] MEDS ORDERED: Pancrelipase DR 12000 1 CAP FS PRN (09:21)
[2018-05-20] MEDS ORDERED: Sodium Bicarbonate Tab 325 MG TAB PER TUBE PRN (09:21)
[2018-05-20] MEDS: Micafungin 100 MG in Sodium Chloride 0.9% 100 ML IVPB SCH (09:22)
[2018-05-20] MEDS: Calcitriol 0.25 MCG CAP PO SCH (09:22)
[2018-05-20] MEDS: Tamsulosin HCl 0.4 MG CAP PO SCH (09:23)
[2018-05-20] MEDS: Amiodarone 200 MG TAB PO SCH ×3 (09:23→20:08)
[2018-05-20] MEDS: Fluticasone Propionate Nasal Spray 16 gm Bottle EA NARE SCH (09:23)
[2018-05-20] MEDS: Nystatin 500,000 UNITS/5 ML UDCUP SSW SCH ×4 (09:24→20:08)
[2018-05-20] MEDS: Terazosin HCl 1 MG CAP PO SCH (09:25)
[2018-05-20] MEDS: Pantoprazole 40 MG GRANULES PACKET PER TUBE SCH (09:48)
--- NOTE | 2018-05-20 10:02 | PRG ---
DATE OF SERVICE: 05/20/2018 SUBJECTIVE: Mr. Degroot is an 82-year-old white male, who was initially admitted for shortness of breath. He was found to be in CHF with bilateral pneumonia. The patient was further followed up by the Renal Service due to the acute kidney injury. Renal function worsened, he was placed on dialysis. In addition, he also went to acute respiratory failure. He was initially treated for presumptive vasculitis. So far, all serologies came back as negative. He did receive a course of Cytoxan and prednisone. He also developed complication with the Cytoxan and had leukopenia and currently on Epogen. His overall status remains unimproved. The family has decided to place him on DNR. He is currently undergoing dialysis. I am at the bedside supervising the dialysis. I plan to do a 3-hour hemodialysis with him and do him on a daily basis due to this pulmonary edema. OBJECTIVE: VITAL SIGNS: Blood pressure 136/65, heart rate 85, respiratory rate 26, pulse ox 100 percent on BiPAP. GENERAL: The patient he is lethargic, minimally arousable, not in overt distress. SKIN: Adequate turgor. HEENT: He has a slightly pale conjunctivae. Anicteric sclerae. No neck mass. No carotid bruits. No JVD. CHEST: No deformities. LUNGS: Decreased breath sounds. HEART: Normal sinus rhythm. No murmurs, gallops, or rubs. ABDOMEN: Globular, soft nontender, no masses. EXTREMITIES: No edema. MEDICATIONS: Medications of May 20, 2018, was reviewed. LABORATORY DATA: Laboratories of May 20, 2018; white count less than 0.1, hemoglobin 8.2, platelet count 23,000. Sodium 138, potassium 4.2, chloride 100, carbon dioxide 21, BUN 55, creatinine 3.24, glucose 138, calcium 8.3. ASSESSMENT AND PLAN: 1. Acute kidney injury-unclear etiology. 2. Acute glomerulonephritis versus acute tubular necrosis is a possibility. We could not pursue renal biopsy due to unstable condition of the patient. Continue daily dialysis. I plan to do a daily dialysis with 3 hour duration and maxing out fluid removal only as tolerated. 3. Leukopenia, currently on Epogen. Hematology is following. 4. Acute respiratory failure-currently extubated, but still in some degree of mild respiratory distress, currently on continuous positive airway pressure. Overall, prognosis remains poor with this patient. Continue supportive care. Job ID: [id number]
[2018-05-20] MEDS ORDERED: Heparin 1,000 UNITS/ML VIAL ONE (11:11)
[2018-05-20] MEDS: methylPREDNISolone Sod Succ 40 MG VIAL IVP SCH ×3 (11:47→23:59)
--- NOTE | 2018-05-20 14:48 | PQF ---
CLINICAL DOCUMENTATION IMPROVEMENT CLARIFICATION FORM: ICD-10 Updated PLEASE DO AN ADDENDUM TO THE PROGRESS NOTE WITH ANY DOCUMENTATION UPDATES OR ADDITIONS AND CARRY THROUGH TO DC SUMMARY. THANK YOU. DATE: 05/20/2018 ATTN: Dr. Carl Please exercise your independent, professional judgment in responding to the clarification form. Clinical indicators are provided on the bottom of this form for your review Please check appropriate box(s) to clarify if the following diagnosis has been ruled in or ruled out: SEVERE SEPSIS [ ] Ruled in diagnosis [ ] Continue to treat [ ] Resolved [ ] Ruled out diagnosis [ ] Cannot rule out diagnosis [ ] Other diagnosis [ X ] Unable to determine In addition, please specify: Present on Admission (POA): [ ] Yes [ ] No [ X ] Unable to determine For continuity of documentation, please document condition throughout progress notes and discharge summary. Thank You. CLINICAL INDICATORS - SIGNS / SYMPTOMS / LABS PN 05/12 (Ladha): Pt seen and examined for Sepsis/Resp failure. Severe sepsis with acute organ dysfunction due to B/ L Pneumonia ?Pneumococcal PN 05/20 (Jules): His ANCA pattern finally resulted and it was negative. Acute respiratory failure, requiring mechanical ventilation. 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 RISKS: H&P 3/: Hx of atrial fib, recent hospitalization with respiratory failure, intubated/ extubated and discharged yesterday to [facility] from [facility], BPH, ARACELI dt recent diuresis TREATMENT: PN 05/13 (Looney): the pt has been initiated on hemodialysis. PN 05/20(Jules) Continue the micafungin, vancomycin and cefepime since he is neutropenic. Thank you, Debra (This form is maintained as a part of the permanent medical record) 2014 [employer]. All Rights Reserved Debra Titus RN, BSN [email or web address] Office: [phone] [email or web address]
--- NOTE | 2018-05-20 14:53 | PDOC.PN ---
- Subjective Encounter Start Date: 05/20/18 Encounter Start Time: 14:51 (late entry) Subjective: remians sedated on Bipap.was agitated. - Objective Resuscitation Status - Order Detail: 05/20/18 09:09 Resuscitation Status Routine Resuscitation Status: DNAR: NO Resuscitation Discussed with: Dr. Vicente discussed with , son, daughters MAR Reviewed: Yes Vital Signs & Weight: Vital Signs (12 hours) Temp Pulse Resp Pulse Ox 05/20/18 14:43 31 H 05/20/18 13:39 111 H 44 H 90 L 05/20/18 13:36 111 H 41 H 92 L 05/20/18 13:00 98.2 F 05/20/18 11:00 98.3 F 05/20/18 08:00 99.6 F 35 H 100 05/20/18 07:38 113 H 42 H 100 05/20/18 07:37 115 H 41 H 100 05/20/18 07:00 99.6 F 05/20/18 06:00 33 H 05/20/18 04:00 99.2 F 32 H Weight Admit Weight 189 lb Weight 177 lb 14.609 oz Most Recent Monitor Data Heart Rate from ECG 104 NIBP 132/72 NIBP BP-Mean 92 Respiration from ECG 20 SpO2 100 I&O: 05/19/18 05/20/18 05/21/18 06:59 06:59 06:59 Intake Total 295 470 330 Output Total 0 0 0 Balance 295 470 330 Result Diagrams: 05/20/18 04:42 05/20/18 04:42 Additional Labs: Accuchecks 05/20/18 06:14 POC Glucose 138 H Microbiology 05/13/18 08:40 Bronchial Washing Respiratory Culture - Final Presumptive Marisa albicans 05/13/18 08:40 Bronchial Washing Acid Fast Bacilli Smear - Final 05/07/18 08:51 Venous blood - Right Hand Blood Culture - Final NO GROWTH IN 5 DAYS 05/07/18 08:48 Venous blood - Left Hand Blood Culture - Final Coagulase Neg Staphylococcus 05/07/18 08:31 Nasopharyngeal swab Influenza Types A,B Direct EIA - Final Phys Exam - Physical Examination Constitutional: NAD HEENT: PERRLA, moist MMs, sclera anicteric, oral pharynx no lesions Neck: no nodes, no JVD, supple, full ROM Respiratory: no wheezing, no rales, no rhonchi, clear to auscultation bilateral caorse breath sounds Cardiovascular: RRR, no significant murmur, no rub Gastrointestinal: soft, non-tender, no distention, positive bowel sounds Musculoskeletal: no edema, pulses present Neurological: non-focal, normal sensation, moves all 4 limbs Deviation from normal: sedated Dx/Plan (1) Pancytopenia Code(s): D61.818 - OTHER PANCYTOPENIA Status: Acute Comment: due to cytoxan.started on vancomycin in addition to Cefepime.new Cx obtained.Neutropenic precautions started (2) Acute respiratory failure with hypoxia Code(s): J96.01 - ACUTE RESPIRATORY FAILURE WITH HYPOXIA Status: Resolved Comment: vent support (3) ARACELI (acute kidney injury) Code(s): N17.9 - ACUTE KIDNEY FAILURE, UNSPECIFIED Status: Acute Comment: improving creatinine with gentle hydration (4) ACUTE PULMONARY HEMORRHAGE Status: Acute Comment: Unclear etiology .BAL Cx negative so far.path pending.Vasculitis work up negative so far. Off of OAC for almost 10-14 days. S/P Cytoxan. ON IV steroids (5) Thrombocytopenia Code(s): D69.6 - THROMBOCYTOPENIA, UNSPECIFIED Status: Acute Comment: monitor (6) Physical deconditioning Code(s): R53.81 - OTHER MALAISE Status: Acute (7) Afib Code(s): I48.91 - UNSPECIFIED ATRIAL FIBRILLATION Status: Chronic Qualifiers: Atrial fibrillation type: paroxysmal Qualified Code(s): I48.0 - Paroxysmal atrial fibrillation Comment: paroxysmal, stopped OAC recently due to bleeding. on Amiodarone . (8) HTN (hypertension) Code(s): I10 - ESSENTIAL (PRIMARY) HYPERTENSION Status: Chronic Qualifiers: Hypertension type: essential hypertension Qualified Code(s): I10 - Essential (primary) hypertension (9) Hypothyroidism Code(s): E03.9 - HYPOTHYROIDISM, UNSPECIFIED Status: Chronic Qualifiers: Hypothyroidism type: unspecified Qualified Code(s): E03.9 - Hypothyroidism , unspecified (10) Pacemaker Code(s): Z95.0 - PRESENCE OF CARDIAC PACEMAKER Status: Chronic Comment: due to sss - Plan continue antibiotics, respiratory therapy, incentive spirometry, DVT proph w/ SCDs guarded prognosis.cont care as listed above -: family to meet with PCCM today for final decision regarding aggressiveness -: of care and code status. * . Review of Systems - Review of Systems Other: can not be obtained due to sedated state - Medications/Allergies Allergies/Adverse Reactions: Allergies Allergy/AdvReac Type Severity Reaction Status Date / Time clindamycin Allergy Verified 05/07/18 13:37 ezetimibe Allergy Verified 05/07/18 13:37 [From Vytorin 10-10] losartan Allergy Verified 05/07/18 13:37 Penicillins Allergy Verified 05/07/18 13:37 simvastatin Allergy Verified 05/07/18 13:37 [From Vytorin 10-10] Sulfa (Sulfonamide Allergy Verified 05/07/18 13:37 Antibiotics) Medications: Current Medications Acetaminophen (Tylenol) 650 mg PO Q4H PRN PRN Reason: Headache/Fever/Mild Pain (1-3) Last Admin: 05/16/18 05:17 Dose: 650 mg Albuterol/Ipratropium (Duoneb) 3 ml NEB [id number] [facility] Last Admin: 05/20/18 13:36 Dose: 3 ml Amiodarone HCl (Cordarone) 400 mg PO TID [facility] Last Admin: 05/20/18 14:37 Dose: 400 mg Lipase/Protease/Amylase ([place] [id number]) 1 cap FS .PER PROTOCOL PRN PRN Reason: TUBE OCCLUSION PROTOCOL Calcitriol (Rocaltrol) 0.25 mcg PO DAILY [facility] Last Admin: 05/20/18 09:22 Dose: 0.25 mcg Guaifenesin/Dextromethorphan (Robitussin Dm) 15 ml PO Q4H PRN PRN Reason: Cough Haloperidol Lactate (Haldol) 5 mg IM Q4H PRN PRN Reason: Agitation Last Admin: 05/20/18 13:16 Dose: 5 mg Cefepime HCl 1 gm/ Sodium (Chloride) 100 mls @ 200 mls/hr IVPB 2000 [facility] Last Admin: 05/19/18 20:29 Dose: 100 mls Micafungin Sodium 100 mg/ (Sodium Chloride) 100 mls @ 100 mls/hr IVPB 1000 [facility] Last Admin: 05/20/18 09:22 Dose: 100 mls Vancomycin HCl 1.25 gm/ Sodium (Chloride) 250 mls @ 166.667 mls/hr IVPB WILLCALL [facility] Vancomycin HCl 1 gm/ Device 200 mls @ 200 mls/hr IVPB WILLCALL [facility] Vancomycin HCl 750 mg/ Sodium (Chloride) 250 mls @ 250 mls/hr IVPB WILLCALL [facility] Vancomycin HCl 500 mg/ Sodium (Chloride) 100 mls @ 100 mls/hr IVPB WILLCALL [facility] Dexmedetomidine HCl 200 mcg/ (Sodium Chloride) 50 mls @ 0 mls/hr IVPB INF [facility]; Protocol Last Admin: 05/20/18 13:34 Dose: 50 mls Levothyroxine Sodium (Synthroid) 200 mcg PO 0600 [facility] Last Admin: 05/20/18 06:13 Dose: 200 mcg Methylprednisolone Sodium Succinate (Solu-Medrol) 40 mg IVP Q6HR [facility] Last Admin: 05/20/18 11:47 Dose: 40 mg Miscellaneous Medication (Ventilator Sedation Protocol) 1 each FS ONE [facility] Stop: 06/12/18 09:01 Miscellaneous Medication (Pharmacy To Dose) 0 each IVPB PRN PRN PRN Reason: Pharmacy to Dose Hold Vancomycin For (Level >20) 0 each FS .AT DIALYSIS [facility] Nystatin (Mycostatin) 500,000 units SSW QID [facility] Last Admin: 05/20/18 14:26 Dose: Not Given Ondansetron HCl (Zofran) 4 mg IVP Q4H PRN PRN Reason: Nausea/Vomiting Last Admin: 05/11/18 12:03 Dose: 4 mg Ondansetron HCl (Zofran Odt) 4 mg PO Q4H PRN PRN Reason: Nausea/Vomiting Last Admin: 05/09/18 12:33 Dose: 4 mg Pantoprazole Sodium (Protonix) 40 mg PER TUBE DAILY [facility] Last Admin: 05/20/18 09:48 Dose: 40 mg Fluticasone Propionate Nasal [place] 16 Gm Bottle 0 each EA NARE DAILY [facility] Last Admin: 05/20/18 09:23 Dose: 1 each Senna/Docusate Sodium (Senokot S) 2 tab PO BIDPRN PRN PRN Reason: Constipation Sodium Bicarbonate (Bicarbonate, Sodium) 650 mg PER TUBE .PER PROTOCOL PRN PRN Reason: ENTERAL TUBE OCCLUSION Sodium Chloride (Flush - Normal Saline) 10 ml IVF Q12HR [facility] Last Admin: 05/20/18 09:24 Dose: 10 ml Sodium Chloride (Flush - Normal Saline) 10 ml IVF PRN PRN PRN Reason: Saline Flush Tamsulosin HCl (Flomax) 0.4 mg PO DAILY [facility] Last Admin: 05/20/18 09:23 Dose: 0.4 mg Tbo-Filgrastim (Granix) 480 mcg SC DAILY [facility] Last Admin: 05/20/18 09:24 Dose: 480 mcg Terazosin HCl (Hytrin) 1 mg PO DAILY [facility] Last Admin: 05/20/18 09:25 Dose: 1 mg
--- NOTE | 2018-05-20 16:27 | PRG ---
DATE OF SERVICE: 05/20/2018 SUBJECTIVE: Mr. Degroot is in the ICU. He became very neutropenic as noted below. The patient is still on BiPAP and has not had any further hemoptysis. He has been made a [id number] status. OBJECTIVE: VITAL SIGNS: T-max 99.8, BP 98/46, and pulse 111. GENERAL: He appears chronically ill. HEENT: Ocular movements are conjugate. LUNGS: Somewhat coarse breath sounds. HEART: S1 and S2. Regular rate. ABDOMEN: Soft. EXTREMITIES: Moves all extremities, but is diffusely weak. LABORATORY DATA: White cell count less than 0.1, hemoglobin 8.2, and platelets 23,000. Creatinine is up to 3.24. Bilirubin is 1.4. Microbiology with negative blood cultures. ASSESSMENT AND DISCUSSION: Cardiomyopathy, atrial fibrillation, on Eliquis, and pulmonary hemorrhage, readmitted with pulmonary hemorrhage at [facility]. Negative vasculitis serologies. 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 The patient now has developed severe neutropenia following administration of Cytoxan. Prognosis is guarded to poor. He has been placed on broad-spectrum coverage and he has also been given Neupogen for management of neutropenia. Job ID: [id number]
[2018-05-20] MEDS: Cefepime 1 GM in Sodium Chloride 0.9% 100 ML IVPB SCH (20:07)
[2018-05-21 04:58] LABS: Hemoglobin 7.9 g/dL (14.0-18.0); Mean Corpuscular Hemoglobin 29.6 pg (27.0-31.0); Mean Corpuscular Volume 89.7 fL (78.0-98.0); Mean Platelet Volume 12.2 fL (7.4-10.4); Platelet Count 18 thou/uL (130-400); RBC Distribution Width 13.4 % (11.5-14.5); Red Blood Cell (RBC) Count 2.68 mill/uL (4.70-6.10); White Blood Cell (WBC) Count Less than 0.1 thou/uL (4.8-10.8)
[2018-05-21 05:08] LABS: Anion Gap 17 mmol/L (10-20); BUN (Urea Nitrogen) 48 mg/dL (8.4-25.7); Calc. Creatinine Clearance 24 mL/min (70-130); Calcium 8.6 mg/dL (7.8-10.44); Carbon Dioxide 24 mmol/L (23-31); Chloride 100 mmol/L (98-107); Estimated GFR-MDRD 22; Glucose 248 mg/dL (83-110); Potassium 3.5 mmol/L (3.5-5.1); Sodium 137 mmol/L (136-145)
[2018-05-21 05:18] LABS: MDiff Complete? YES; Ovalocytes SLIGHT = 2-5 cells (100X) (0-1/hpf); Platelet Morphology Comment Appears Decreased
[2018-05-21] MEDS: Levothyroxine Sodium 100 MCG TAB PO SCH (06:03)
[2018-05-21] MEDS: methylPREDNISolone Sod Succ 40 MG VIAL IVP SCH ×3 (06:03→17:00)
--- NOTE | 2018-05-21 07:56 | PRG ---
DATE OF SERVICE: 05/21/2018 TIME SPENT: This is 35 minutes of critical care time. SUBJECTIVE: Mr. Degroot remains on mechanical ventilation via BiPAP. Continues to do quite poorly despite aggressive therapy. OBJECTIVE: VITAL SIGNS: Temperature 98.3, pulse 74, blood pressure 112/64, and O2 sat 100%. He is currently on a BiPAP machine. He has been on minute ventilation of about 19 L/minutes FiO2 of 40%. HEENT: Dry oral mucous membranes. NECK: No JVD. LUNGS: Coarse breath sounds. CARDIAC: S1 and S2, regular. ABDOMEN: Soft and nontender. EXTREMITIES: No edema. LABORATORY DATA: White blood cell count less than 0.1, hemoglobin 7.9, hematocrit 24.0, and platelet count 18,000. Sodium 137, potassium 3.5, chloride 100, CO2 of 24, BUN 48, creatinine 2.7, and glucose 248. IMAGING DATA: Chest x-ray this morning was not performed. ASSESSMENT: 1. Acute hypoxic respiratory failure, requiring mechanical ventilation. 2. Neutropenic from Cytoxan. 3. 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 4. Acute renal failure. 5. Thrombocytopenia and anemia. PLAN: 1. Continue BiPAP. 2. Continue Precedex for sedation. 3. Continue empiric antibiotic and antifungal therapy. 4. Continue tube feeds. 5. I spoke with the family yesterday. They understand the patient's poor prognosis. They wanted to continue current therapy, but make the patient DNR and not proceed with any endotracheal intubation or shock/defibrillation if the patient should undergo rest. I do not anticipate this patient's care changing much today. I will go ahead and order a repeat chest x-ray for tomorrow. Job ID: [id number]
[2018-05-21] MEDS: Fluticasone Propionate Nasal Spray 16 gm Bottle EA NARE SCH (08:44)
[2018-05-21] MEDS: Calcitriol 0.25 MCG CAP PO SCH (08:44)
[2018-05-21] MEDS: Terazosin HCl 1 MG CAP PO SCH (08:44)
[2018-05-21] MEDS: Tamsulosin HCl 0.4 MG CAP PO SCH (08:44)
[2018-05-21] MEDS: Amiodarone 200 MG TAB PO SCH ×3 (08:44→20:42)
[2018-05-21] MEDS: Nystatin 500,000 UNITS/5 ML UDCUP SSW SCH ×4 (08:45→20:42)
[2018-05-21] MEDS: Pantoprazole 40 MG GRANULES PACKET PER TUBE SCH (08:45)
[2018-05-21] MEDS: Micafungin 100 MG in Sodium Chloride 0.9% 100 ML IVPB SCH (09:05)
[2018-05-21] MEDS: Haloperidol Lactate 5 MG/ML VIAL IM PRN ×2 (09:27→19:13)
[2018-05-21] MEDS ORDERED: Albumin 25% 25 GM/100 ML BOT IVPB SCH (09:45)
--- NOTE | 2018-05-21 11:43 | PRG ---
DATE OF SERVICE: SERVICE: Renal Medicine. SUBJECTIVE: Mr. Degroot is an 82-year-old white male, seen for his acute kidney injury secondary to his chronic renal failure. The exact etiology of his acute kidney injury is unclear. Although, ATN is a possibility. Initially, we felt he may have renal vasculitis due to his clinical presentation of pulmonary renal syndrome. Serologies have all been negative. He has received also Cytoxan and prednisone. It is currently on hold now. No acute events noted. The patient is currently on BiPAP. He is noted to be restless at times. The patient is also DNR. OBJECTIVE: VITAL SIGNS: Blood pressure 107/64, heart rate 74, respiratory rate 24, and pulse ox 100%. GENERAL: Noted to be lethargic, but arousable, not in distress. SKIN: Adequate turgor. HEENT: Slightly pale conjunctivae. Anicteric sclerae. NECK: No neck mass. No carotid bruits. No JVD. CHEST: No deformities. LUNGS: Decreased breath sounds. HEART: Normal sinus rhythm. No murmurs, gallops, or rubs. ABDOMEN: Globular, soft, nontender. No masses. EXTREMITIES: No edema. MEDICATIONS: Medications of May 21, 2018 were reviewed. LABORATORY DATA: Laboratories of May 21, 2018; white count less than 0.1, hemoglobin 7.9, and platelet count 18,000. Sodium 137, potassium 3.5, chloride 100, carbon dioxide 24, BUN 48, creatinine 2.78, glucose 248, calcium 8.6. ASSESSMENT AND PLAN: 1. Acute kidney injury-unclear etiology. Acute tubular necrosis versus acute glomerulonephritis. The patient is essentially anuric. Continuing daily dialysis. My plan is to challenge him if we can remove more than 2 L of fluid. Initially, the blood pressure went down. He was given albumin infusion, which stabilized the BP. 2. Pancytopenia, drug induced. This is status post Cytoxan with the patient. Hematology is currently following the patient. Currently, he is on a daily Granix 480 mcg subcu daily. 3. Acute respiratory failure-supportive care. Pulmonary is following. Overall prognosis remains poor. Continue current management. Job ID: [id number]
--- NOTE | 2018-05-21 16:18 | PDOC.PN ---
- Subjective Encounter Start Date: 05/21/18 Encounter Start Time: 16:16 Subjective: pulled the OGT out when sedation reduced -: does not want the OGT back in & just wants to go home -: he does not want any further treatment.family thinks that he is confused - Objective Resuscitation Status - Order Detail: 05/20/18 09:09 Resuscitation Status Routine Resuscitation Status: DNAR: NO Resuscitation Discussed with: Dr. Vicente discussed with , son, daughters MAR Reviewed: Yes Vital Signs & Weight: Vital Signs (12 hours) Temp Pulse Resp Pulse Ox 05/21/18 15:59 98.1 F 05/21/18 13:42 99 05/21/18 13:39 72 22 H 99 05/21/18 11:56 97.7 F 05/21/18 11:00 98.5 F 05/21/18 10:00 22 H 05/21/18 08:00 32 H 05/21/18 07:21 70 28 H 99 05/21/18 07:18 70 29 H 99 05/21/18 07:13 31 H 100 05/21/18 07:00 98.3 F 05/21/18 06:00 24 H Weight Admit Weight 189 lb Weight 175 lb 14.4 oz Most Recent Monitor Data Heart Rate from ECG 79 NIBP 110/55 NIBP BP-Mean 73 Respiration from ECG 32 SpO2 97 I&O: 05/20/18 05/21/18 05/22/18 06:59 06:59 06:59 Intake Total 470 1594.8 280 Output Total 0 0 0 Balance 470 1594.8 280 Result Diagrams: 05/21/18 04:35 05/21/18 04:35 Additional Labs: Microbiology 05/13/18 08:40 Bronchial Washing Respiratory Culture - Final Presumptive Marisa albicans 05/13/18 08:40 Bronchial Washing Acid Fast Bacilli Smear - Final 05/07/18 08:51 Venous blood - Right Hand Blood Culture - Final NO GROWTH IN 5 DAYS 05/07/18 08:48 Venous blood - Left Hand Blood Culture - Final Coagulase Neg Staphylococcus 05/07/18 08:31 Nasopharyngeal swab Influenza Types A,B Direct EIA - Final 05/19/18 12:40 Dialysis - Umbilical Vein Blood Culture - Preliminary YEAST 05/19/18 10:00 Venous blood - Right Hand Blood Culture - Preliminary YEAST Laboratory Tests 05/07/18 05/10/18 05/14/18 08:50 05:21 06:04 WBC Hgb Creatinine 2.30 H 2.64 H 5.37 H 05/16/18 05/16/18 05/17/18 03:41 03:41 04:59 WBC 6.7 Hgb Creatinine 3.10 H 4.65 H 05/17/18 05/18/18 05/18/18 04:59 04:45 04:45 WBC 2.9 L 1.3 L Hgb 8.5 L Creatinine 3.28 H 05/19/18 05/20/18 05/20/18 04:30 04:42 04:42 WBC 0.1 L* Less than 0.1 L* Hgb 8.5 L Creatinine 3.24 H 05/21/18 05/21/18 04:35 04:35 WBC Less than 0.1 L* Hgb 7.9 L Creatinine 2.78 H Phys Exam - Physical Examination Constitutional: NAD fidgety and agitated HEENT: PERRLA, sclera anicteric, oral pharynx no lesions mucosa dry w oral candidiasis which is getting better Neck: no nodes, no JVD, full ROM Respiratory: no wheezing, no rales, clear to auscultation bilateral Cardiovascular: RRR, no significant murmur Gastrointestinal: soft, non-tender, no distention, positive bowel sounds Musculoskeletal: no edema, pulses present Neurological: moves all 4 limbs Psychiatric: normal affect, A&O x 3 Dx/Plan (1) Pancytopenia Code(s): D61.818 - OTHER PANCYTOPENIA Status: Acute Comment: due to cytoxan.started on vancomycin in addition to Cefepime.new Cx obtained.Neutropenic precautions started. Started on Filgrastim daily 05/20/18 (2) Acute respiratory failure with hypoxia Code(s): J96.01 - ACUTE RESPIRATORY FAILURE WITH HYPOXIA Status: Resolved Comment: extubated 05/20/18. (3) ARACELI (acute kidney injury) Code(s): N17.9 - ACUTE KIDNEY FAILURE, UNSPECIFIED Status: Acute Comment: improving creatinine with gentle hydration (4) ACUTE PULMONARY HEMORRHAGE Status: Acute Comment: Unclear etiology .BAL Cx negative so far.path shows Inflammation only..Vasculitis work up negative so far. Off of OAC for almost 10- 14 days. S/P Cytoxan. ON IV steroids (5) Thrombocytopenia Code(s): D69.6 - THROMBOCYTOPENIA, UNSPECIFIED Status: Acute Comment: monitor (6) Physical deconditioning Code(s): R53.81 - OTHER MALAISE Status: Acute (7) Afib Code(s): I48.91 - UNSPECIFIED ATRIAL FIBRILLATION Status: Chronic Qualifiers: Atrial fibrillation type: paroxysmal Qualified Code(s): I48.0 - Paroxysmal atrial fibrillation Comment: paroxysmal, stopped OAC recently due to bleeding. on Amiodarone . 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 -: will further discuss plan of care w pt & family once sedation is completly -: cont current care as below. am labs. hemodialysis.supportive care -: guarded prognosis * . Review of Systems - Review of Systems Other: can't be reliably obtained due to residual sedation - Medications/Allergies Allergies/Adverse Reactions: Allergies Allergy/AdvReac Type Severity Reaction Status Date / Time clindamycin Allergy Verified 05/07/18 13:37 ezetimibe Allergy Verified 05/07/18 13:37 [From Vytorin 10-10] losartan Allergy Verified 05/07/18 13:37 Penicillins Allergy Verified 05/07/18 13:37 simvastatin Allergy Verified 05/07/18 13:37 [From Vytorin 10-10] Sulfa (Sulfonamide Allergy Verified 05/07/18 13:37 Antibiotics) Medications: Current Medications Acetaminophen (Tylenol) 650 mg PO Q4H PRN PRN Reason: Headache/Fever/Mild Pain (1-3) Last Admin: 05/16/18 05:17 Dose: 650 mg Albumin Human (Albumin 25%) 25 gm IVPB ONE [facility] Stop: 05/21/18 20:00 Last Admin: 05/21/18 08:16 Dose: 25 gm Albuterol/Ipratropium (Duoneb) 3 ml NEB [id number] [facility] Last Admin: 05/21/18 13:39 Dose: 3 ml Amiodarone HCl (Cordarone) 400 mg PO TID [facility] Last Admin: 05/21/18 08:44 Dose: 400 mg Lipase/Protease/Amylase ([place] [id number]) 1 cap FS .PER PROTOCOL PRN PRN Reason: TUBE OCCLUSION PROTOCOL Guaifenesin/Dextromethorphan (Robitussin Dm) 15 ml PO Q4H PRN PRN Reason: Cough Haloperidol Lactate (Haldol) 5 mg IM Q4H PRN PRN Reason: Agitation Last Admin: 05/21/18 09:27 Dose: 5 mg Cefepime HCl 1 gm/ Sodium (Chloride) 100 mls @ 200 mls/hr IVPB 2000 [facility] Last Admin: 05/20/18 20:07 Dose: 100 mls Micafungin Sodium 100 mg/ (Sodium Chloride) 100 mls @ 100 mls/hr IVPB 1000 [facility] Last Admin: 05/21/18 09:05 Dose: 100 mls Vancomycin HCl 1.25 gm/ Sodium (Chloride) 250 mls @ 166.667 mls/hr IVPB WILLCALL [facility] Vancomycin HCl 1 gm/ Device 200 mls @ 200 mls/hr IVPB WILLCALL [facility] Vancomycin HCl 750 mg/ Sodium (Chloride) 250 mls @ 250 mls/hr IVPB [facility] Last Admin: 05/21/18 10:13 Dose: 250 mls Vancomycin HCl 500 mg/ Sodium (Chloride) 100 mls @ 100 mls/hr IVPB WILLCALL [facility] Dexmedetomidine HCl 400 mcg/ (Sodium Chloride) 100 mls @ 0 mls/hr IVPB INF [facility] ; Protocol Last Admin: 05/21/18 01:25 Dose: 100 mls Levothyroxine Sodium (Synthroid) 200 mcg PO 0600 [facility] Last Admin: 05/21/18 06:03 Dose: 200 mcg Methylprednisolone Sodium Succinate (Solu-Medrol) 40 mg IVP Q6HR [facility] Last Admin: 05/21/18 11:29 Dose: 40 mg Miscellaneous Medication (Ventilator Sedation Protocol) 1 each FS ONE [facility] Stop: 06/12/18 09:01 Miscellaneous Medication (Pharmacy To Dose) 0 each IVPB PRN PRN PRN Reason: Pharmacy to Dose Hold Vancomycin For (Level >20) 0 each FS .AT DIALYSIS [facility] Nystatin (Mycostatin) 500,000 units SSW QID [facility] Last Admin: 05/21/18 12:44 Dose: Not Given Ondansetron HCl (Zofran) 4 mg IVP Q4H PRN PRN Reason: Nausea/Vomiting Last Admin: 05/11/18 12:03 Dose: 4 mg Ondansetron HCl (Zofran Odt) 4 mg PO Q4H PRN PRN Reason: Nausea/Vomiting Last Admin: 05/09/18 12:33 Dose: 4 mg Pantoprazole Sodium (Protonix) 40 mg IVP DAILY [facility] Fluticasone Propionate Nasal [place] 16 Gm Bottle 0 each EA NARE DAILY [facility] Last Admin: 05/21/18 08:44 Dose: 1 each Senna/Docusate Sodium (Senokot S) 2 tab PO BIDPRN PRN PRN Reason: Constipation Sodium Bicarbonate (Bicarbonate, Sodium) 650 mg PER TUBE .PER PROTOCOL PRN PRN Reason: ENTERAL TUBE OCCLUSION Sodium Chloride (Flush - Normal Saline) 10 ml IVF Q12HR [facility] Last Admin: 05/21/18 08:45 Dose: Not Given Sodium Chloride (Flush - Normal Saline) 10 ml IVF PRN PRN PRN Reason: Saline Flush Tbo-Filgrastim (Granix) 480 mcg SC DAILY [facility] Last Admin: 05/21/18 08:53 Dose: 480 mcg
--- NOTE | 2018-05-21 17:23 | PRG ---
DATE OF SERVICE: 05/21/2018 SUBJECTIVE: Mr. Degroot is still in the ICU. He is not using BiPAP anymore. His vital signs showed normal temperature, BP 120/57. He is awake. He is requesting that the NG tube not be inserted. Apparently, his had approved that or had insisted that be inserted. The patient himself is obviously alert and awake and has declined that intervention. OBJECTIVE: LUNGS: Symmetric air entry. HEART: S1 and S2, regular rate. ABDOMEN: Soft. EXTREMITIES: He has a right groin Trialysis catheter. He is able to move extremities. LABORATORY DATA: His white cell count is less than 0.1, platelets 18,000, hemoglobin 7.9. Creatinine is 2.78. I's and O's have been positive for the past few days. He is incontinent. ASSESSMENT AND DISCUSSION: Cardiomyopathy, atrial fibrillation, on Eliquis, pulmonary hemorrhage readmission to negative vasculitis serologies, Marisa albicans in sputum, and severe neutropenia and now he appears to have colonization of the Trialysis catheter by Marisa albicans. The patient is requesting no more aggressive interventions, maybe he will be transferred to palliative care. Job ID: [id number]
[2018-05-21] MEDS: Cefepime 1 GM in Sodium Chloride 0.9% 100 ML IVPB SCH (19:13)
[2018-05-21] MEDS ORDERED: Lorazepam 2 MG/ML VIAL SLOW IVP SCH (20:00)
[2018-05-22] MEDS: methylPREDNISolone Sod Succ 40 MG VIAL IVP SCH ×5 (00:34→20:03)
[2018-05-22 05:11] LABS: Hemoglobin 7.4 g/dL (14.0-18.0); Mean Corpuscular HGB CONC 31.7 g/dL (32.0-36.0); Mean Corpuscular Hemoglobin 29.1 pg (27.0-31.0); Mean Corpuscular Volume 91.8 fL (78.0-98.0); Mean Platelet Volume 12.6 fL (7.4-10.4); Platelet Count 18 thou/uL (130-400); RBC Distribution Width 13.4 % (11.5-14.5); Red Blood Cell (RBC) Count 2.55 mill/uL (4.70-6.10); White Blood Cell (WBC) Count Less than 0.1 thou/uL (4.8-10.8)
[2018-05-22 05:25] LABS: Anion Gap 13 mmol/L (10-20); BUN (Urea Nitrogen) 51 mg/dL (8.4-25.7); Calc. Creatinine Clearance 26 mL/min (70-130); Calcium 8.5 mg/dL (7.8-10.44); Carbon Dioxide 30 mmol/L (23-31); Chloride 102 mmol/L (98-107); Estimated GFR-MDRD 25; Glucose 152 mg/dL (83-110); Potassium 4.2 mmol/L (3.5-5.1); Sodium 141 mmol/L (136-145)
[2018-05-22] MEDS: Levothyroxine Sodium 100 MCG TAB PO SCH (05:53)
--- NOTE | 2018-05-22 08:47 | PRG ---
DATE OF SERVICE: 05/22/2018 TIME SPENT: 35 minutes critical care time. SUBJECTIVE: The patient is sleeping, on noninvasive mechanical ventilation. He still looks very bad. OBJECTIVE: VITAL SIGNS: Temperature is 98.3, pulse is 72, and blood pressure 129/71. He is breathing about 40 to 50 times a minute. He is currently on a Precedex drip. Total intake for the last 24 hours 750 and output 1500 by dialysis. HEENT: Severe bitemporal wasting. NECK: No JVD. LUNGS: Coarse breath sounds. CARDIAC: S1 and S2, regular. ABDOMEN: Soft and nontender. EXTREMITIES: No edema. LABORATORY DATA: His cultures grew out Marisa albicans from the dialysis catheter and from the right hand. White blood cell count continues to be less than 0.1, hematocrit 23.4, and platelet count 18. Sodium 141, potassium 4.2, chloride 102, CO2 of 30, BUN 51, creatinine 2.4, and glucose 152. ASSESSMENT: 1. Fungemia. 2. Neutropenic sepsis. 3. Vasculitis, status post Cytoxan treatment. 4. Acute renal failure. 5. Cggjp-cd-ieercod respiratory failure. PLAN: This is truly a bad situation. I do not think this illness is survivable. Ideally, we would like to be able to change the catheters out, however, the patient's platelet count is dangerously low and I think pulling the catheter out today would be more of a risk than potential benefit. We will continue current antifungal therapy and noninvasive positive pressure ventilation. Dialysis will continue as long as the family feels it is feasible. I really think about converting to a palliative care type situation as again I do not think the patient's illnesses is survivable. I am waiting today his chest x-ray to see if there was any potential improvement, but based on what I am seeing by exam, I would doubt it would be the case. Job ID: [id number]
[2018-05-22] MEDS: Pantoprazole 40 MG VIAL IVP SCH (09:02)
[2018-05-22] MEDS: Amiodarone 200 MG TAB PO SCH ×3 (09:03→20:52)
[2018-05-22] MEDS: Nystatin 500,000 UNITS/5 ML UDCUP SSW SCH ×4 (09:04→20:52)
[2018-05-22] MEDS: Fluticasone Propionate Nasal Spray 16 gm Bottle EA NARE SCH (09:04)
[2018-05-22] MEDS: Micafungin 100 MG in Sodium Chloride 0.9% 100 ML IVPB SCH (09:57)
[2018-05-22] MEDS ORDERED: Lorazepam 2 MG/ML VIAL ONE (11:38)
--- NOTE | 2018-05-22 12:58 | RAD ---
PORTABLE CHEST: 05/22/2018 PROVIDED CLINICAL HISTORY: Pneumonia. COMPARISON: 05/20/2018 FINDINGS: Cardiac and mediastinal silhouette is unchanged in appearance. Persistent bilateral air space diseas e with some improvement in aeration of the right lung base. Bilateral pleural fluid collections pers ist. There is no evidence for pneumothorax with limitations due to the supine nature of the study. IMPRESSION: Persistent bilateral air space disease, with improvement in aeration of the right lung base. POS: STEPHEN
--- NOTE | 2018-05-22 14:00 | PDOC.PN ---
- Subjective Encounter Start Date: 05/22/18 Encounter Start Time: 13:58 Subjective: sedatyed again to handle Bipap for oxygen desaturation -: not able to swollow piils as they got stuck in throat.refused OGT -: care discussed w sister at bedside - Objective Resuscitation Status - Order Detail: 05/20/18 09:09 Resuscitation Status Routine Resuscitation Status: DNAR: NO Resuscitation Discussed with: Dr. Vicente discussed with , son, daughters MAR Reviewed: Yes Vital Signs & Weight: Vital Signs (12 hours) Temp Pulse Resp Pulse Ox 05/22/18 12:57 70 21 H 99 05/22/18 12:56 98.5 F 70 23 H 99 05/22/18 11:49 35 H 05/22/18 11:00 98.5 F 05/22/18 10:40 71 31 H 99 05/22/18 09:58 48 H 05/22/18 07:42 73 41 H 99 05/22/18 07:41 73 41 H 95 05/22/18 07:33 98.5 F 40 H 100 05/22/18 07:00 98.3 F 05/22/18 06:00 27 H 05/22/18 04:00 98.1 F 26 H 05/22/18 02:00 42 H Weight Admit Weight 189 lb Weight 177 lb 6.4 oz Most Recent Monitor Data Heart Rate from ECG 70 NIBP 113/64 NIBP BP-Mean 80 Respiration from ECG 29 SpO2 100 I&O: 05/21/18 05/22/18 05/23/18 06:59 06:59 06:59 Intake Total 1594.8 750 100 Output Total 0 0 0 Balance 1594.8 750 100 Result Diagrams: 05/22/18 04:58 05/22/18 04:58 Additional Labs: Microbiology 05/19/18 12:40 Dialysis - Umbilical Vein Blood Culture - Final Presumptive Marisa albicans 05/19/18 10:00 Venous blood - Right Hand Blood Culture - Final Presumptive Marisa albicans 05/13/18 08:40 Bronchial Washing Respiratory Culture - Final Presumptive Marisa albicans 05/13/18 08:40 Bronchial Washing Acid Fast Bacilli Smear - Final 05/07/18 08:51 Venous blood - Right Hand Blood Culture - Final NO GROWTH IN 5 DAYS 05/07/18 08:48 Venous blood - Left Hand Blood Culture - Final Coagulase Neg Staphylococcus 05/07/18 08:31 Nasopharyngeal swab Influenza Types A,B Direct EIA - Final 05/20/18 23:03 Venous blood - Right Hand Blood Culture - Preliminary Specimen has been received and culture in progress. No Growth to date. 05/20/18 23:03 Venous blood - Right Arm Blood Culture - Preliminary Specimen has been received and culture in progress. No Growth to date. Laboratory Tests 05/07/18 05/09/18 05/10/18 08:49 06:27 05:21 WBC 23.9 H 13.0 H 20.0 H Hgb 10.0 L 7.6 L Plt Count 144 Creatinine 05/12/18 05/13/18 05/14/18 05:33 04:21 06:04 WBC 17.5 H 9.6 Hgb 6.6 L Plt Count 96 L 56 L Creatinine 05/15/18 05/15/18 05/17/18 05:50 05:50 04:59 WBC 8.1 Hgb 9.1 L Plt Count Creatinine 4.40 H 4.65 H 05/17/18 05/18/18 05/18/18 04:59 04:45 04:45 WBC 2.9 L Hgb Plt Count 32 L 30 L Creatinine 3.28 H 05/19/18 05/20/18 05/20/18 04:30 04:42 04:42 WBC 0.1 L* Less than 0.1 L* Hgb 8.2 L Plt Count 26 L* 23 L* Creatinine 3.24 H 05/21/18 05/21/18 05/22/18 04:35 04:35 04:58 WBC Less than 0.1 L* Less than 0.1 L* Hgb 7.9 L 7.4 L Plt Count 18 L* 18 L* Creatinine 2.78 H Phys Exam - Physical Examination Constitutional: NAD sedated and on Biapa bipap mask on coarse b/l.reduced Cardiovascular: RRR Gastrointestinal: soft, non-tender, no distention, positive bowel sounds Musculoskeletal: no edema, pulses present sedated Deviation from normal: sedated Skin: no rash Dx/Plan (1) Disseminated candidiasis Code(s): B37.7 - CANDIDAL SEPSIS Status: Acute Comment: peripheral and HD cathter blood Cx 2/2 Positive (2) Pancytopenia Code(s): D61.818 - OTHER PANCYTOPENIA Status: Acute Comment: due to cytoxan.started on vancomycin in addition to Cefepime.new Cx obtained.Neutropenic precautions started. Started on Filgrastim daily 05/20/18 (3) Acute respiratory failure with hypoxia Code(s): J96.01 - ACUTE RESPIRATORY FAILURE WITH HYPOXIA Status: Resolved Comment: extubated 05/20/18. (4) ARACELI (acute kidney injury) Code(s): N17.9 - ACUTE KIDNEY FAILURE, UNSPECIFIED Status: Acute Comment: improving creatinine with gentle hydration (5) ACUTE PULMONARY HEMORRHAGE Status: Acute Comment: Unclear etiology .BAL Cx negative so far.path shows Inflammation only..Vasculitis work up negative so far. Off of OAC for almost 10- 14 days. S/P Cytoxan. ON IV steroids (6) Thrombocytopenia Code(s): D69.6 - THROMBOCYTOPENIA, UNSPECIFIED Status: Acute Comment: monitor (7) Physical deconditioning Code(s): R53.81 - OTHER MALAISE Status: Acute (8) Afib Code(s): I48.91 - UNSPECIFIED ATRIAL FIBRILLATION Status: Chronic Qualifiers: Atrial fibrillation type: paroxysmal Qualified Code(s): I48.0 - Paroxysmal atrial fibrillation Comment: paroxysmal, stopped OAC recently due to bleeding. on Amiodarone . 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 - Plan DVT proph w/SCDs clinical decline w pt clearly stating yesterday that he does not want -: aggresiive Rx and wants to go home.encourgade sister to discuss w rest of -: family.very poor prognosis and is not unexpected -: discussed w Palliative care team who will help arrange meeting -: cont supportive care.HD cathter colonized per ID.cont micafungin * .cont braod spectrum antibiotics * am labs * cont filgrastim-no improvement in wbc counts Review of Systems - Review of Systems Other: unable to obtain due to sedation - Medications/Allergies Allergies/Adverse Reactions: Allergies Allergy/AdvReac Type Severity Reaction Status Date / Time clindamycin Allergy Verified 05/07/18 13:37 ezetimibe Allergy Verified 05/07/18 13:37 [From Vytorin 10-10] losartan Allergy Verified 05/07/18 13:37 Penicillins Allergy Verified 05/07/18 13:37 simvastatin Allergy Verified 05/07/18 13:37 [From Vytorin 10-10] Sulfa (Sulfonamide Allergy Verified 05/07/18 13:37 Antibiotics) Medications: Current Medications Acetaminophen (Tylenol) 650 mg PO Q4H PRN PRN Reason: Headache/Fever/Mild Pain (1-3) Last Admin: 05/16/18 05:17 Dose: 650 mg Albuterol/Ipratropium (Duoneb) 3 ml NEB [id number] [facility] Last Admin: 05/22/18 12:56 Dose: 3 ml Amiodarone HCl (Cordarone) 400 mg PO TID [facility] Last Admin: 05/22/18 09:03 Dose: Not Given Lipase/Protease/Amylase ([place] [id number]) 1 cap FS .PER PROTOCOL PRN PRN Reason: TUBE OCCLUSION PROTOCOL Guaifenesin/Dextromethorphan (Robitussin Dm) 15 ml PO Q4H PRN PRN Reason: Cough Haloperidol Lactate (Haldol) 5 mg IM Q4H PRN PRN Reason: Agitation Last Admin: 05/21/18 19:13 Dose: 5 mg Cefepime HCl 1 gm/ Sodium (Chloride) 100 mls @ 200 mls/hr IVPB 2000 [facility] Last Admin: 05/21/18 19:13 Dose: 100 mls Micafungin Sodium 100 mg/ (Sodium Chloride) 100 mls @ 100 mls/hr IVPB 1000 [facility] Last Admin: 05/22/18 09:57 Dose: 100 mls Vancomycin HCl 1.25 gm/ Sodium (Chloride) 250 mls @ 166.667 mls/hr IVPB [facility]CALL [facility] Vancomycin HCl 1 gm/ Device 200 mls @ 200 mls/hr IVPB WILLCALL [facility]MANI Vancomycin HCl 750 mg/ Sodium (Chloride) 250 mls @ 250 mls/hr IVPB WILLCALL [facility] Last Admin: 05/21/18 10:13 Dose: 250 mls Vancomycin HCl 500 mg/ Sodium (Chloride) 100 mls @ 100 mls/hr IVPB WILLCALL [facility] Dexmedetomidine HCl 400 mcg/ (Sodium Chloride) 100 mls @ 0 mls/hr IVPB INF [facility] ; Protocol Last Admin: 05/22/18 09:02 Dose: 100 mls Levothyroxine Sodium (Synthroid) 200 mcg PO 0600 [facility] Last Admin: 05/22/18 05:53 Dose: Not Given Lorazepam (Ativan) 1 mg SLOW IVP Q2H PRN PRN Reason: Agitation Methylprednisolone Sodium Succinate (Solu-Medrol) 20 mg IVP 0200,0800,1400, 2000 [facility] Last Admin: 05/22/18 13:57 Dose: 20 mg Miscellaneous Medication (Ventilator Sedation Protocol) 1 each FS ONE [facility] Stop: 06/12/18 09:01 Miscellaneous Medication (Pharmacy To Dose) 0 each IVPB PRN PRN PRN Reason: Pharmacy to Dose Hold Vancomycin For (Level >20) 0 each FS .AT DIALYSIS [facility] Nystatin (Mycostatin) 500,000 units SSW QID [facility] Last Admin: 05/22/18 13:51 Dose: Not Given Ondansetron HCl (Zofran) 4 mg IVP Q4H PRN PRN Reason: Nausea/Vomiting Last Admin: 05/11/18 12:03 Dose: 4 mg Ondansetron HCl (Zofran Odt) 4 mg PO Q4H PRN PRN Reason: Nausea/Vomiting Last Admin: 05/09/18 12:33 Dose: 4 mg Pantoprazole Sodium (Protonix) 40 mg IVP DAILY [facility] Last Admin: 05/22/18 09:02 Dose: 40 mg Fluticasone Propionate Nasal [place] 16 Gm Bottle 0 each EA NARE DAILY [facility] Last Admin: 05/22/18 09:04 Dose: Not Given Senna/Docusate Sodium (Senokot S) 2 tab PO BIDPRN PRN PRN Reason: Constipation Sodium Bicarbonate (Bicarbonate, Sodium) 650 mg PER TUBE .PER PROTOCOL PRN PRN Reason: ENTERAL TUBE OCCLUSION Sodium Chloride (Flush - Normal Saline) 10 ml IVF Q12HR [facility] Last Admin: 05/22/18 09:04 Dose: Not Given Sodium Chloride (Flush - Normal Saline) 10 ml IVF PRN PRN PRN Reason: Saline Flush Tbo-Filgrastim (Granix) 480 mcg SC DAILY [facility]I Last Admin: 05/22/18 09:54 Dose: 480 mcg
[2018-05-22] MEDS: Cefepime 1 GM in Sodium Chloride 0.9% 100 ML IVPB SCH (20:03)
[2018-05-22] MEDS: Lorazepam 2 MG/ML VIAL SLOW IVP PRN ×2 (20:51→23:34)
[2018-05-23] MEDS: methylPREDNISolone Sod Succ 40 MG VIAL IVP SCH ×3 (01:15→14:16)
[2018-05-23] MEDS: Lorazepam 2 MG/ML VIAL SLOW IVP PRN ×2 (02:06→09:46)
[2018-05-23 05:17] LABS: Hemoglobin 7.5 g/dL (14.0-18.0); Mean Corpuscular HGB CONC 31.5 g/dL (32.0-36.0); Mean Corpuscular Hemoglobin 29.4 pg (27.0-31.0); Mean Corpuscular Volume 93.5 fL (78.0-98.0); Mean Platelet Volume 13.3 fL (7.4-10.4); Platelet Count 18 thou/uL (130-400); RBC Distribution Width 13.6 % (11.5-14.5); Red Blood Cell (RBC) Count 2.54 mill/uL (4.70-6.10); White Blood Cell (WBC) Count Less than 0.1 thou/uL (4.8-10.8)
[2018-05-23 05:19] LABS: Anion Gap 14 mmol/L (10-20); BUN (Urea Nitrogen) 88 mg/dL (8.4-25.7); Calc. Creatinine Clearance 17 mL/min (70-130); Calcium 8.6 mg/dL (7.8-10.44); Carbon Dioxide 30 mmol/L (23-31); Chloride 103 mmol/L (98-107); Estimated GFR-MDRD 15; Glucose 156 mg/dL (83-110); Potassium 4.5 mmol/L (3.5-5.1); Sodium 142 mmol/L (136-145)
[2018-05-23 05:25] VITALS: BMI 23.0
[2018-05-23 05:33] LABS: Platelet Morphology Comment Appears Decreased; RBC Morphology Normal
[2018-05-23] MEDS: Levothyroxine Sodium 100 MCG TAB PO SCH (05:44)
[2018-05-23] MEDS: Amiodarone 200 MG TAB PO SCH (07:52)
[2018-05-23] MEDS: Nystatin 500,000 UNITS/5 ML UDCUP SSW SCH ×2 (07:53→13:00)
--- NOTE | 2018-05-23 07:55 | PRG ---
DATE OF SERVICE: 05/23/2018 TIME SPENT: 35 minutes critical care time. SUBJECTIVE: The patient remains on noninvasive mechanical ventilation with minute ventilation of approximately 20 L/minute. He is on a Precedex drip. He really will not interact with me. OBJECTIVE: VITAL SIGNS: Temperature is 98.4, pulse 73, blood pressure 120/60, O2 saturation 100%. Intake for last 24 hours, 465, output 1500. HEENT: Unremarkable. NECK: No JVD. LUNGS: Coarse breath sounds. CARDIOVASCULAR: S1 and S2, regular. ABDOMEN: Soft, nontender. EXTREMITIES: No edema. LABORATORY DATA: White blood cell count continues to be less than 0.1, hemoglobin 7.5, hematocrit 23.8, and platelet count 18. Sodium 142, potassium 4.5, chloride 103, CO2 30, BUN 88, creatinine 3.8, glucose 156. Chest x-ray shows continued bilateral infiltrates. Again, his cultures are growing out Marisa albicans. ASSESSMENT: 1. Fungal sepsis. 2. Neutropenia. 3. Status post Cytoxan treatment for vasculitis. 4. Acute on chronic renal failure. 5. Acute on chronic respiratory failure. PLAN: This continues to be a terrible situation, which I do not think the patient will survive. He is continuing antifungal and antibacterial treatment with cefepime, vancomycin, and micafungin. He is receiving IV steroids, but the dose was decreased yesterday. He also continues on Neupogen, but at this point, we have failed to see any response from that. I would encourage the family moving to more palliative care course. I have no new suggestions at the current care. Job ID: [id number]
[2018-05-23] MEDS ORDERED: Amiodarone 200 MG TAB PO SCH (09:00)
--- NOTE | 2018-05-23 09:21 | RAD ---
SINGLE VIEW OF THE CHEST: COMPARISON: 05/22/2018. HISTORY: Pneumonia. FINDINGS: A single view of the chest shows an enlarged cardiomediastinal silhouette which is stable. The pacem norma is unchanged in position. Multifocal airspace opacities are seen. This may be slightly worse i n the right lower lobe. Small bilateral pleural effusions are seen. IMPRESSION: 1. Multifocal pneumonia. 2. Small bilateral pleural effusions. POS: STEPHEN
[2018-05-23] MEDS: Pantoprazole 40 MG VIAL IVP SCH (09:28)
[2018-05-23] MEDS: Fluticasone Propionate Nasal Spray 16 gm Bottle EA NARE SCH (09:28)
--- NOTE | 2018-05-23 09:37 | PRG ---
DATE OF SERVICE: 05/23/2018 SUBJECTIVE: Mr. Degroot is an 82-year-old white male being followed up by the Renal Service for his acute kidney injury. The etiology is unclear. Although acute GN versus ATN is being considered. He continues to be on maintenance hemodialysis. My plan is to do a three and half hour dialysis with him. I will be placing him on a Wednesday, Wednesday, and Wednesday schedule. The patient remains unimproved. He continues to be on a BiPAP. No acute events noted last night. The patient remains anuric. OBJECTIVE: VITAL SIGNS: Blood pressure is 120/68, heart rate 77, respiratory rate is 31, and pulse ox 99%. GENERAL: The patient is sedated on BiPAP, comfortable, not in distress. SKIN: Adequate turgor. HEENT: He has a slightly pale conjunctivae. Anicteric sclerae. NECK: No neck mass. No carotid bruits. No JVD. CHEST: No deformities. LUNGS: Decreased breath sounds. HEART: Normal sinus rhythm. No murmur. No gallops. No rubs. ABDOMEN: Globular, soft, and nontender. No masses. EXTREMITIES: No edema. No deformities. MEDICATIONS: Medications of May 23, 2018, was reviewed. LABORATORY DATA: Laboratories of May 23, 2018, white count less than 0.1 and hemoglobin 8.5. Sodium 142, potassium 4.5, chloride 103, carbon dioxide 30, BUN 88, creatinine 3.81, glucose 156, and calcium 8.6. ASSESSMENT AND PLAN: 1. Acute kidney injury - possibility of acute glomerulonephritis versus acute tubular necrosis. Continue supportive care. Continue 3 times a week hemodialysis. Fluid removal only as tolerated. 2. Pancytopenia - drug-induced. The patient is status post Cytoxan therapy. Currently, on supportive care. 3. 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 However, serologies have all been negative. We are unable to pursue any biopsy such as a renal biopsy due to the unstable condition with this patient. Overall, prognosis remains poor. Continue supportive care. Job ID: [id number]
[2018-05-23] MEDS: Micafungin 100 MG in Sodium Chloride 0.9% 100 ML IVPB SCH (09:51)
[2018-05-23 12:21] VITALS: BP 115/68
[2018-05-23 13:41] VITALS: TEMP 98
--- NOTE | 2018-05-23 14:52 | PDOC.PN ---
- Subjective Encounter Start Date: 05/23/18 Encounter Start Time: 14:48 Subjective: remains on Bipap and sedated.no improvement. -: discussed w palliative team who had family meeting & family has decided for -: comfort care and Hospice - Objective Resuscitation Status - Order Detail: 05/20/18 09:09 Resuscitation Status Routine Resuscitation Status: DNAR: NO Resuscitation Discussed with: Dr. Vicente discussed with , son, daughters MAR Reviewed: Yes Vital Signs & Weight: Vital Signs (12 hours) Temp Pulse Pulse Pulse Resp BP BP 05/23/18 14:00 30 H 05/23/18 13:18 75 33 H 05/23/18 13:17 74 34 H 05/23/18 12:00 98 F 26 H 05/23/18 11:37 74 33 H 05/23/18 10:50 76 74 115/68 115/53 L 05/23/18 10:00 27 H 05/23/18 08:00 28 H 05/23/18 07:36 73 31 H 05/23/18 07:35 77 38 H 05/23/18 06:00 25 H 05/23/18 04:00 26 H Pulse Ox Pulse Ox Pulse Ox 05/23/18 14:00 05/23/18 13:18 99 05/23/18 13:17 99 05/23/18 12:00 05/23/18 11:37 99 05/23/18 10:50 100 100 05/23/18 10:00 05/23/18 08:00 98 05/23/18 07:36 99 05/23/18 07:35 99 05/23/18 06:00 05/23/18 04:00 Weight Admit Weight 189 lb Weight 174 lb 11.2 oz Most Recent Monitor Data Heart Rate from ECG 78 NIBP 145/71 NIBP BP-Mean 95 Respiration from ECG 24 SpO2 100 I&O: 05/22/18 05/23/18 05/24/18 06:59 06:59 06:59 Intake Total 750 465.5 100 Output Total 0 0 0 Balance 750 465.5 100 Result Diagrams: 05/23/18 04:54 05/23/18 04:54 Additional Labs: Microbiology 05/19/18 12:40 Dialysis - Umbilical Vein Blood Culture - Final Presumptive Marisa albicans 05/19/18 10:00 Venous blood - Right Hand Blood Culture - Final Presumptive Marisa albicans 05/13/18 08:40 Bronchial Washing Respiratory Culture - Final Presumptive Marisa albicans 05/13/18 08:40 Bronchial Washing Acid Fast Bacilli Smear - Final 05/07/18 08:51 Venous blood - Right Hand Blood Culture - Final NO GROWTH IN 5 DAYS 05/07/18 08:48 Venous blood - Left Hand Blood Culture - Final Coagulase Neg Staphylococcus 05/07/18 08:31 Nasopharyngeal swab Influenza Types A,B Direct EIA - Final 05/20/18 23:03 Venous blood - Right Hand Blood Culture - Preliminary NO GROWTH AT 48 HOURS 05/20/18 23:03 Venous blood - Right Arm Blood Culture - Preliminary NO GROWTH AT 48 HOURS 05/13/18 08:40 Bronchial Washing Acid Fast Bacilli Culture - Preliminary Phys Exam - Physical Examination Constitutional: NAD sedated and comfortable on Bipap HEENT: sclera anicteric Neck: no JVD coarse b/l Cardiovascular: RRR Gastrointestinal: soft, no distention Musculoskeletal: no edema, pulses present sedated Deviation from normal: sedated Dx/Plan (1) Disseminated candidiasis Code(s): B37.7 - CANDIDAL SEPSIS Status: Acute Comment: peripheral and HD cathter blood Cx 2/2 Positive (2) Pancytopenia Code(s): D61.818 - OTHER PANCYTOPENIA Status: Acute Comment: due to cytoxan.started on vancomycin in addition to Cefepime.new Cx obtained.Neutropenic precautions started. Started on Filgrastim daily 05/20/18 (3) Acute respiratory failure with hypoxia Code(s): J96.01 - ACUTE RESPIRATORY FAILURE WITH HYPOXIA Status: Resolved Comment: extubated 05/20/18. (4) ARACELI (acute kidney injury) Code(s): N17.9 - ACUTE KIDNEY FAILURE, UNSPECIFIED Status: Acute Comment: improving creatinine with gentle hydration (5) ACUTE PULMONARY HEMORRHAGE Status: Acute Comment: Unclear etiology .BAL Cx negative so far.path shows Inflammation only..Vasculitis work up negative so far. Off of OAC for almost 10- 14 days. S/P Cytoxan. ON IV steroids (6) Thrombocytopenia Code(s): D69.6 - THROMBOCYTOPENIA, UNSPECIFIED Status: Acute Comment: monitor (7) Physical deconditioning Code(s): R53.81 - OTHER MALAISE Status: Acute (8) Afib Code(s): I48.91 - UNSPECIFIED ATRIAL FIBRILLATION Status: Chronic Qualifiers: Atrial fibrillation type: paroxysmal Qualified Code(s): I48.0 - Paroxysmal atrial fibrillation Comment: paroxysmal, stopped OAC recently due to bleeding. on Amiodarone . 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 Review of Systems - Review of Systems Other: can not be obtained due to sedation - Medications/Allergies Allergies/Adverse Reactions: Allergies Allergy/AdvReac Type Severity Reaction Status Date / Time clindamycin Allergy Verified 05/07/18 13:37 ezetimibe Allergy Verified 05/07/18 13:37 [From Vytorin 10-10] losartan Allergy Verified 05/07/18 13:37 Penicillins Allergy Verified 05/07/18 13:37 simvastatin Allergy Verified 05/07/18 13:37 [From Vytorin 10-10] Sulfa (Sulfonamide Allergy Verified 05/07/18 13:37 Antibiotics) Medications: Current Medications Acetaminophen (Tylenol) 650 mg PO Q4H PRN PRN Reason: Headache/Fever/Mild Pain (1-3) Last Admin: 05/16/18 05:17 Dose: 650 mg Albuterol/Ipratropium (Duoneb) 3 ml NEB [id number] [facility] Last Admin: 05/23/18 13:17 Dose: 3 ml Amiodarone HCl (Cordarone) 400 mg PO BID [facility] Last Admin: 05/23/18 09:50 Dose: Not Given Lipase/Protease/Amylase ([place] [id number]) 1 cap FS .PER PROTOCOL PRN PRN Reason: TUBE OCCLUSION PROTOCOL Guaifenesin/Dextromethorphan (Robitussin Dm) 15 ml PO Q4H PRN PRN Reason: Cough Haloperidol Lactate (Haldol) 5 mg IM Q4H PRN PRN Reason: Agitation Last Admin: 05/21/18 19:13 Dose: 5 mg Micafungin Sodium 100 mg/ (Sodium Chloride) 100 mls @ 100 mls/hr IVPB 1000 [facility] Last Admin: 05/23/18 09:51 Dose: 100 mls Vancomycin HCl 1.25 gm/ Sodium (Chloride) 250 mls @ 166.667 mls/hr IVPB WILLCALL [facility] Vancomycin HCl 1 gm/ Device 200 mls @ 200 mls/hr IVPB WILLCALL ARMANI Vancomycin HCl 750 mg/ Sodium (Chloride) 250 mls @ 250 mls/hr IVPB WILLCALL [facility] Last Admin: 05/21/18 10:13 Dose: 250 mls Vancomycin HCl 500 mg/ Sodium (Chloride) 100 mls @ 100 mls/hr IVPB WILLCALL [facility] Dexmedetomidine HCl 400 mcg/ (Sodium Chloride) 100 mls @ 0 mls/hr IVPB INF [facility] ; Protocol Last Admin: 05/22/18 16:15 Dose: 100 mls Cefepime HCl 1 gm/ Sodium (Chloride) 100 mls @ 200 mls/hr IVPB 1500 [facility] Levothyroxine Sodium (Synthroid) 200 mcg PO 0600 [facility] Last Admin: 05/23/18 05:44 Dose: Not Given Lorazepam (Ativan) 1 mg SLOW IVP Q2H PRN PRN Reason: Agitation Last Admin: 05/23/18 09:46 Dose: 1 mg Methylprednisolone Sodium Succinate (Solu-Medrol) 20 mg IVP 0200,0800,1400, 2000 [facility] Last Admin: 05/23/18 14:16 Dose: 20 mg Miscellaneous Medication (Ventilator Sedation Protocol) 1 each FS ONE [facility] Stop: 06/12/18 09:01 Miscellaneous Medication (Pharmacy To Dose) 0 each IVPB PRN PRN PRN Reason: Pharmacy to Dose Hold Vancomycin For (Level >20) 0 each FS .AT DIALYSIS [facility] Nystatin (Mycostatin) 500,000 units SSW QID [facility] Last Admin: 05/23/18 13:00 Dose: Not Given Ondansetron HCl (Zofran) 4 mg IVP Q4H PRN PRN Reason: Nausea/Vomiting Last Admin: 05/11/18 12:03 Dose: 4 mg Ondansetron HCl (Zofran Odt) 4 mg PO Q4H PRN PRN Reason: Nausea/Vomiting Last Admin: 05/09/18 12:33 Dose: 4 mg Pantoprazole Sodium (Protonix) 40 mg IVP DAILY [facility] Last Admin: 05/23/18 09:28 Dose: 40 mg Fluticasone Propionate Nasal Primrose 16 Gm Bottle 0 each EA NARE DAILY [facility] Last Admin: 05/23/18 09:28 Dose: Not Given Senna/Docusate Sodium (Senokot S) 2 tab PO BIDPRN PRN PRN Reason: Constipation Sodium Bicarbonate (Bicarbonate, Sodium) 650 mg PER TUBE .PER PROTOCOL PRN PRN Reason: ENTERAL TUBE OCCLUSION Sodium Chloride (Flush - Normal Saline) 10 ml IVF Q12HR [facility] Last Admin: 05/23/18 09:50 Dose: 10 ml Sodium Chloride (Flush - Normal Saline) 10 ml IVF PRN PRN PRN Reason: Saline Flush Tbo-Filgrastim (Granix) 480 mcg SC DAILY [facility] Last Admin: 05/23/18 09:32 Dose: 480 mcg
[2018-05-23] MEDS ORDERED: Cefepime 1 GM in Sodium Chloride 0.9% 100 ML IVPB SCH (15:00)
--- NOTE | 2018-05-23 15:27 | PDOC.EVN ---
Event Note - Event Note Event Note: Pt accepted for Inpatient hospice under for Dr. Toledo.[facility] and transfer to medical off [place] once transfer of care finalized.
[2018-05-23] MEDS ORDERED: Milk Of Magnesia 30 ML UDCUP PO PRN (16:12)
[2018-05-23] MEDS ORDERED: Haloperidol Lactate 5 MG/ML VIAL SLOW IVP PRN (16:12)
[2018-05-23] MEDS ORDERED: Hyoscyamine Sulfate SL 0.125 mg Tablet SL PRN (16:12)
[2018-05-23] MEDS ORDERED: diphenhydrAMINE 50 MG/ML VIAL IVP PRN (16:12)
[2018-05-23] MEDS ORDERED: ALPRAZolam 0.25 MG TAB PO PRN (16:12)
[2018-05-23] MEDS ORDERED: diphenhydrAMINE 25 MG CAP PO PRN (16:12)
[2018-05-23] MEDS ORDERED: Zolpidem Tartrate 5 MG TAB PO PRN (16:12)
[2018-05-23] MEDS ORDERED: Morphine 10 MG/0.5 ML ORAL SYRINGE SL PRN (16:12)
[2018-05-23] MEDS ORDERED: chlorproMAZINE HCl 50 MG/2 ML AMP IM PRN (16:12)
[2018-05-23] MEDS ORDERED: Promethazine HCl 25 MG SUPP PR PRN (16:12)
[2018-05-23] MEDS ORDERED: Loperamide HCl 2 MG CAP PO PRN (16:12)
[2018-05-23] MEDS ORDERED: Ondansetron PF 4 MG/2 ML Vial IVP PRN (16:12)
[2018-05-23] MEDS ORDERED: Senokot 8.6 MG TAB PO PRN (16:12)
[2018-05-23] MEDS ORDERED: Lorazepam 2 MG/ML VIAL SLOW IVP PRN ×2 (16:12)
[2018-05-23] MEDS ORDERED: Lorazepam 1 MG TAB PO PRN ×2 (16:12)
[2018-05-23] MEDS ORDERED: Acetaminophen 650 MG Suppository PR PRN (16:12)
[2018-05-23] MEDS ORDERED: Scopolamine 1.5 mg/72 hour Patch TOP PRN ×2 (16:12)
[2018-05-23] MEDS ORDERED: Ondansetron ODT 4 MG TAB PO PRN (16:12)
--- NOTE | 2018-05-24 04:20 | DIS ---
DATE OF ADMISSION: 05/07/2018 DATE OF DISCHARGE: 05/23/2018 PRIMARY CARE PHYSICIAN: Dr. Jeff Mckenzie. DISCHARGE DISPOSITION: Inpatient hospice under the care of Dr. Meghana Anthony. DISCHARGE DIAGNOSES: 1. Disseminated candidiasis. 2. Pancytopenia due to chemotherapy with Cytoxan. 3. Acute hypoxic respiratory failure. 4. Acute renal insufficiency, started on hemodialysis this admission. 5. Acute pulmonary hemorrhage, suspected vasculitis but workup negative so far. 6. Severe physical deconditioning. 7. Atrial fibrillation. 8. Hypertension. 9. Hypothyroidism. 10. History of sick sinus syndrome, status post pacemaker placement. DISCHARGE MEDICATION: As per the hospice people, but otherwise he will be on p.r.n. IV Ativan and Tylenol and comfort care medications. All other invasive treatments and medications and drips are stopped. IN-HOUSE CONSULTATION: 1. Pulmonary Medicine, Dr. Giles and Jules. 2. Nephrology Dr. Looney. 3. Cardiology Dr. Vasquez. 4. Infectious Disease, Dr. Lowe. PROCEDURES DONE IN THE HOSPITAL: 1. Initiation of hemodialysis and multiple rounds of maintenance hemodialysis. 2. Multiple chest x-rays. 3. Endotracheal intubation. 4. Subsequent extubation. 5. Transthoracic echocardiogram which shows EF of 60% to 65%, otherwise unremarkable transthoracic echocardiogram. 6. Placement of a right femoral Trialysis catheter for hemodialysis by Dr. Dillon on 05/12/2018. 7. Bronchoscopy with biopsy. HISTORY OF PRESENTING ILLNESS: Mr. Degroot is an 82-year-old male with past medical history significant for atrial fibrillation, on chronic anticoagulation; BPH, and chronic kidney disease, who presented to the emergency room with complaints of hypoxia and persistent shortness of breath. In addition to emergency room, he was recently admitted to [facility] where he was intubated for hypoxic respiratory failure and underwent bronchoscopy. At that time, he was found to have alveolar hemorrhage with inflammatory component and was treated with high-dose steroids. During that hospitalization, he was taken off his Eliquis. He was on Eliquis for his atrial fibrillation. He was seen by Dr. Syed over there. Eventually, he was discharged to [facility], but the family brought him back to [facility] for complaints of low oxygen levels, low blood pressure, and tachycardia. He was treated with BiPAP in the emergency room and was found to be in acute hypoxic respiratory failure upon presentation. He was admitted to [facility] and Pulmonary Medicine was consulted. The patient underwent a bronchoscopic biopsy and the pathology results were positive only for active inflammation. Please see admission history and physical dictated by Dr. Hess on the date of admission on 05/07/2018, for full details. HOSPITAL COURSE: The patient was seen by Pulmonary Medicine and he was actually intubated shortly after admission for worsening respiratory failure. He was also found to be in acute renal failure and Nephrology was consulted and Dr. Looney saw the patient. He had to be started on hemodialysis. Echocardiogram was done, which was unremarkable. Atrial fibrillation with RVR for which Cardiology was consulted and Dr. Weeks saw the patient and he was treated with initially IV amiodarone, then oral amiodarone. There was a concern of recurrent acute pulmonary hemorrhage and possibility of vasculitis leading to pulmonary hemorrhage as well as acute renal failure. Multiple studies for vasculitis were sent and eventually, all of them came back negative. These included JD screening, p-ANCA, proteinase C antibody, myeloperoxidase antibody, double-stranded and glomerular basement antibodies. Hepatitis serologies were negative as well. He had to undergo thoracentesis for worsening pleural effusion. His bronchoscopic biopsy was done and it showed evidence of inflammation. With possibility of vasculitis, he was treated with Cytoxan in the hospital along with high dose of IV steroids. He had some stabilization in his symptoms and Cytoxan was stopped after few doses. He was eventually extubated, but did poorly afterwards. He became severely pancytopenic with Cytoxan and was started on filgrastim. Hematology was consulted for the same. His counts did not improve and his respiratory status worsened. At the same time, his blood cultures came back positive for Marisa from 2/2 sites including the hemodialysis catheter. He was also initiated on hemodialysis after placement of a hemodialysis catheter as above. Infectious Disease was consulted. He was treated with broad-spectrum IV antibiotics and antifungals. As the patient continued to decline, the family made him a DNR and DNI. He was treated with BiPAP and all the above measures, but there was no improvement. He expressed wishes to go home. He sought further medical treatment and eventually had to be sedated and was using nonstop BiPAP to keep alive. At this time, Palliative Care team was consulted and long discussions were made between the family and the consultants and myself involved and eventually, they agreed that the patient will have no benefit from continued medical care and imminent that is suspected. They wanted the patient to be inpatient hospice and Hospice Team was consulted and they accepted the patient today. The patient will be discharged from [facility] and will be admitted again by inpatient hospice under the care of Dr. Meghana Anthony. Discharge orders have been placed by myself. I have discussed this case with the hospice nurse. TIME SPENT: Total time spent in the discharge 38 minutes. Job ID: [id number]
== END 2018-05-23 17:06 | disposition hospice, inpatient (51) | DRG 166 ==
LOC: ERS 08:22 → IMCU/EMU 12:38 → CCU 05-13 08:15
PROVIDERS: ADMIT Internal Medicine; ATTEND Internal Medicine
PROC: 06HM33Z Insertion of Infusion Device into Right Femoral Vein, Percutaneous Approach (ICD-10-PCS; 2018-05-12)
PROC: 5A1D70Z Performance of Urinary Filtration, Intermittent, Less than 6 Hours Per Day (ICD-10-PCS; 2018-05-12)
PROC: 30233N1 Transfusion of Nonautologous Red Blood Cells into Peripheral Vein, Percutaneous Approach (ICD-10-PCS; 2018-05-12)
PROC: 5A1955Z Respiratory Ventilation, Greater than 96 Consecutive Hours (ICD-10-PCS; principal; 2018-05-13)
PROC: 0B9M8ZX Drainage of Bilateral Lungs, Via Natural or Artificial Opening Endoscopic, Diagnostic (ICD-10-PCS; 2018-05-13)
PROC: 0BH17EZ Insertion of Endotracheal Airway into Trachea, Via Natural or Artificial Opening (ICD-10-PCS; 2018-05-13)
PROC: 5A09357 Assistance with Respiratory Ventilation, Less than 24 Consecutive Hours, Continuous Positive Airway Pressure (ICD-10-PCS; 2018-05-13)
PROC: 5A1D70Z Performance of Urinary Filtration, Intermittent, Less than 6 Hours Per Day (ICD-10-PCS; 2018-05-13)
PROC: 5A1D70Z Performance of Urinary Filtration, Intermittent, Less than 6 Hours Per Day (ICD-10-PCS; 2018-05-14)
PROC: 5A1D70Z Performance of Urinary Filtration, Intermittent, Less than 6 Hours Per Day (ICD-10-PCS; 2018-05-15)
PROC: 5A1D70Z Performance of Urinary Filtration, Intermittent, Less than 6 Hours Per Day (ICD-10-PCS; 2018-05-17)
PROC: 5A09357 Assistance with Respiratory Ventilation, Less than 24 Consecutive Hours, Continuous Positive Airway Pressure (ICD-10-PCS; 2018-05-19)
PROC: 5A1D70Z Performance of Urinary Filtration, Intermittent, Less than 6 Hours Per Day (ICD-10-PCS; 2018-05-19)
PROC: 5A1D70Z Performance of Urinary Filtration, Intermittent, Less than 6 Hours Per Day (ICD-10-PCS; 2018-05-20)
PROC: 5A1D70Z Performance of Urinary Filtration, Intermittent, Less than 6 Hours Per Day (ICD-10-PCS; 2018-05-21)
DX: J96.01 Acute respiratory failure with hypoxia (principal); B37.7 Candidal sepsis; J18.9 Pneumonia, unspecified organism; D61.810 Antineoplastic chemotherapy induced pancytopenia; N17.9 Acute kidney failure, unspecified; R04.89 Hemorrhage from other sites in respiratory passages; E87.2 Acidosis; I13.0 Hypertensive heart and chronic kidney disease with heart failure and stage 1 through stage 4 chronic kidney disease, or unspecified chronic kidney disease; I50.32 Chronic diastolic (congestive) heart failure; E03.9 Hypothyroidism, unspecified; E87.5 Hyperkalemia; T45.1X5A Adverse effect of antineoplastic and immunosuppressive drugs, initial encounter; Z66 Do not resuscitate; N40.0 Benign prostatic hyperplasia without lower urinary tract symptoms; I48.2 Chronic atrial fibrillation; N18.3 Chronic kidney disease, stage 3 (moderate); K21.9 Gastro-esophageal reflux disease without esophagitis; D69.6 Thrombocytopenia, unspecified; Z88.1 Allergy status to other antibiotic agents; Z88.0 Allergy status to penicillin; Z88.2 Allergy status to sulfonamides; Z88.8 Allergy status to other drugs, medicaments and biological substances; Z79.82 Long term (current) use of aspirin; Z79.899 Other long term (current) drug therapy; Z95.0 Presence of cardiac pacemaker
CPT/HCPCS: 36415; 36416; 36430; 71045; 76770; 80048; 80053; 80069; 80162; 80202; 81003; 81015; 82550; 82553; 82805; 83516; 83520; 83605; 83690; 83735; 83880; 84100; 84484; 85025; 85060; 85652; 86038; 86225; 86256; 86704; 86706; 86803; 86850; 86900; 86901; 87040; 87070; 87102; 87116; 87149; 87205; 87206; 87340; 87804; 88112; 88305; 90935; 93005; 93010; 93306; 94002; 94003; 94640; 94660; 96365; 96367; C1752; C9113; G0257; J0171; J0282; J0692; J1447; J1630; J1642; J1644; J1650; J1940; J1956; J2001; J2060; J2248; J2250; J2270; J2405; J2704; J2920; J2930; J3010; J3230; J3370; J3475; J7050; J7070; J7611; J7620; J9070; P9016; P9047; Q0162

== ENCOUNTER 2018-05-23 17:06 | Inpatient (IN) | payer BC, MEDICARE, OTHER ==
--- NOTE | 2018-05-23 17:34 | PDOC.EVN ---
Event Note - Event Note Event Note: Residents assumed care @ approximately 1530 05/23/18 for inpatient hospice. ventilatory/circulatory support discontinued, pt in no acute distress, family at bedside.
[2018-05-23] MEDS ORDERED: Milk Of Magnesia 30 ML UDCUP PO PRN (18:13)
[2018-05-23] MEDS ORDERED: ALPRAZolam 0.25 MG TAB PO PRN (18:13)
[2018-05-23] MEDS ORDERED: Ondansetron ODT 4 MG TAB PO PRN (18:13)
[2018-05-23] MEDS ORDERED: diphenhydrAMINE 50 MG/ML VIAL IVP PRN (18:13)
[2018-05-23] MEDS ORDERED: diphenhydrAMINE 25 MG CAP PO PRN (18:13)
[2018-05-23] MEDS ORDERED: Lorazepam 1 MG TAB PO PRN ×2 (18:13)
[2018-05-23] MEDS ORDERED: Scopolamine 1.5 mg/72 hour Patch TOP PRN ×2 (18:13)
[2018-05-23] MEDS ORDERED: Loperamide HCl 2 MG CAP PO PRN (18:13)
[2018-05-23] MEDS ORDERED: Senokot 8.6 MG TAB PO PRN (18:13)
[2018-05-23] MEDS ORDERED: chlorproMAZINE HCl 25 MG in Sodium Chloride 0.9% 50 ML IVPB PRN (18:13)
[2018-05-23] MEDS ORDERED: Promethazine HCl 25 MG SUPP PR PRN (18:13)
[2018-05-23] MEDS ORDERED: Lorazepam 2 MG/ML VIAL SLOW IVP PRN ×2 (18:13)
[2018-05-23] MEDS ORDERED: Morphine 10 MG/0.5 ML ORAL SYRINGE SL PRN (18:13)
[2018-05-23] MEDS ORDERED: Ondansetron PF 4 MG/2 ML Vial IVP PRN (18:13)
[2018-05-23] MEDS ORDERED: Zolpidem Tartrate 5 MG TAB PO PRN (18:13)
[2018-05-23] MEDS ORDERED: Hyoscyamine Sulfate SL 0.125 mg Tablet SL PRN (18:13)
[2018-05-23] MEDS ORDERED: Acetaminophen 650 MG Suppository PR PRN (18:13)
[2018-05-23] MEDS ORDERED: Haloperidol Lactate 5 MG/ML VIAL SLOW IVP PRN (18:13)
[2018-05-23] MEDS ORDERED: chlorproMAZINE HCl 50 MG/2 ML AMP IM PRN ×2 (18:13)
[2018-05-23] MEDS ORDERED: Morphine IR Tab 15 MG TAB PO PRN (18:13)
[2018-05-23] MEDS ORDERED: Acetaminophen 325 MG TAB PO PRN (18:13)
[2018-05-23] MEDS ORDERED: Ibuprofen 200 MG TAB PO PRN (18:17)
[2018-05-23] MEDS ORDERED: Haloperidol 1 MG TAB PO PRN (18:17)
[2018-05-23 18:18] VITALS: BMI 23.0
--- NOTE | 2018-05-23 18:43 | PDOC.EVN ---
Event Note - Event Note Event Note: Attending Note Contacted by [facility] for inpatient hospice for this patient. Patient evaluated by hospice nurse and found to be appropriate for admission to inpatient hospice. Briefly this is a 82 yo male admitted to on 05/06/2018 for SOB found to be in acute respiratory failure with hypoxia requiring brief BiPaP on admission. Patient had been hospitalized at [facility] the week prior for similar symptoms and found to have pulmonary hemorrhage of unknown etiology. Over his hospitalization here he had progressive worsening of his pulmonary status eventually requiring intubation. Also developed ARF with CKD and was started on hemodialysis. Patient eventually extubated and continued on BiPap. Also developed pancytopenia after treatment with cytoxan for possible vasculitis as etiology for his pulmonary and renal failure. Additionally- found to have candidial sepsis with 2/2 (+) blood cultures. Patient's status continued to deteriorate with development of anuria and no recovery from pancytopenia. Discussions with family by his physicians and palliative care throughout hospitalization and family decided to proceed with comfort care and admission to hospice. Primary diagnosis: Acute on chronic respiratory failure Secondary diagnosis: 1) Fungal sepsis 2) Pancytopenia secondary to cytoxan 3) Acute on chronic renal failure 4) Pulmonary hemorrhage A/P: 82 yo male admitted to inpatient hospice Hospice orders instituted. Plan of care discussed with family and agree. Patient has terminal diagnosis with life expectancy of less than 6 months.
[2018-05-23 19:21] VITALS: BP 132/61; TEMP 98.3
== END 2018-05-23 20:45 | disposition expired | DRG 951 ==
LOC: ONC 17:06
PROVIDERS: ADMIT Family Medicine; ATTEND Family Medicine
DX: Z51.5 Encounter for palliative care (principal); B37.7 Candidal sepsis; J96.21 Acute and chronic respiratory failure with hypoxia; D61.810 Antineoplastic chemotherapy induced pancytopenia; R04.89 Hemorrhage from other sites in respiratory passages; N17.9 Acute kidney failure, unspecified; Z66 Do not resuscitate; R34 Anuria and oliguria; I48.91 Unspecified atrial fibrillation; N18.9 Chronic kidney disease, unspecified; I77.6 Arteritis, unspecified; E03.9 Hypothyroidism, unspecified; T45.1X5A Adverse effect of antineoplastic and immunosuppressive drugs, initial encounter; Z88.0 Allergy status to penicillin; Z88.2 Allergy status to sulfonamides; Z88.8 Allergy status to other drugs, medicaments and biological substances; Z99.2 Dependence on renal dialysis; Z79.01 Long term (current) use of anticoagulants; Z95.0 Presence of cardiac pacemaker
CPT/HCPCS: J3230